=== PATIENT | male | born 1945 | race Caucasian/White ===

== ENCOUNTER 2022-09-16 10:47 | Inpatient (IN) | payer MEDICARE, OTHER ==
[~2022-09-16] VITALS: Ht 175.3 cm; Wt 85.6 kg
[2022-09-16] MEDS ORDERED: ONDANSETRON HCL 4 MG/2 ML VIAL IV ONE (11:30)
[2022-09-16 11:40] LABS: Basophils # (auto) 0.1 10 ^3/uL (0-0.2); Eosinophils # (auto) 0.1 10 ^3/uL (0-0.8); Lymphocytes # (auto) 1.4 10 ^3/uL (0.4-5.4); Monocytes # (auto) 0.5 10 ^3/uL (0-1.3); Red Blood Cells 4.81 10^6/uL (4.5-5.90)
[2022-09-16 11:42] LABS: Basophils % (auto) 1.1 % (0.0-2.0); Eosinophils % (auto) 0.9 % (0.0-7.0); Hematocrit 37.8 % (41.0-53.0); Hemoglobin 12.6 g/dL (13.5-17.5); Lymphocytes % (auto) 18.2 % (10.0-50.0); Mean Corpuscular Hemoglobin 26.2 pg (28.0-32.0); Mean Corpuscular Hgb Conc. 33.4 g/dL (32.0-36.0); Mean Corpuscular Volume 78.6 fL (80.0-100.0); Monocytes % (auto) 6.7 % (0.0-12.0); Neutrophils # (auto) 5.5 10 ^3/uL (1.6-8.6); Neutrophils % (auto) 73.1 % (37.0-80.0); Nucleated Red Blood Cells % 0.1 %; Red Cell Distribution Width 14.5 % (11.8-14.3); White Blood Cell 7.6 10^3/uL (4.4-10.8)
[2022-09-16 12:04] LABS: Albumin 3.7 g/dL (3.4-5.0); Calcium 9.8 mg/dL (8.5-10.1); Potassium 3.6 mmol/L (3.5-5.1)
[2022-09-16 12:08] LABS: BUN/Creatinine Ratio 17.2 (10.0-20.0); Bilirubin, Total 0.4 mg/dL (0.2-1.0)
[2022-09-16 13:50] LABS: Urine Bacteria NONE SEEN /hpf (None Seen); Urine Blood Negative /uL (Negative); Urine Hyaline Cast FEW /lpf (0 - 2); Urine Mucus FEW (None Seen); Urine WBC 2 /hpf (0 - 3)
[2022-09-16] MEDS ORDERED: AMLO-496 PO (14:11)
[2022-09-16] MEDS ORDERED: HYDR1TAB97 PO (14:11)
[2022-09-16] MEDS ORDERED: MET50T PO (14:11)
[2022-09-16] MEDS ORDERED: APIX5TAB PO (14:11)
[2022-09-16] MEDS ORDERED: ROSU1TAB15 PO (14:11)
[2022-09-16] MEDS ORDERED: METF-370 PO (14:11)
[2022-09-16] MEDS ORDERED: GABA800T97 PO (14:11)
[2022-09-16] MEDS ORDERED: MELO1TAB56 PO (14:11)
[2022-09-16] MEDS ORDERED: LISI40TA11 PO (14:11)
[2022-09-16] MEDS ORDERED: ONDANSETRON HCL 4 MG/2 ML VIAL IV PRN (14:15)
[2022-09-16] MEDS ORDERED: DEXTROSE (50%) 50ML SYRG IV PRN ×2 (14:15)
[2022-09-16] MEDS ORDERED: SODIUM CHLORIDE 0.9% 1,500 ML IV ONE (14:15)
[2022-09-16] MEDS ORDERED: KETOROLAC TROMETH 30 MG/ML 1ML VIAL IV ONE (14:15)
[2022-09-16] MEDS ORDERED: ACETAMINOPHEN 325 MG TAB PO PRN (14:15)
[2022-09-16] MEDS ORDERED: MORPHINE SULFATE INJ 2 MG/ml SYRG IV PRN (14:15)
[2022-09-16] MEDS ORDERED: KETOROLAC TROMETH 30 MG/ML 1ML VIAL IV PRN (14:15)
[2022-09-16 14:39] LABS: Cholesterol 110 mg/dL (< 200)
[2022-09-16 14:42] LABS: HDL Cholesterol 46 mg/dL (40-59); LDL Cholesterol 59 mg/dL (< 100); Triglycerides 222 mg/dL (< 150)
[2022-09-16] MEDS ORDERED: InsuLIN REG 1unit/0.01ml Soln (100units/ml) SC SCH (17:00)
[2022-09-16] MEDS ORDERED: ACCU-CHEK COMFORT CURVE STRIP VI SCH (17:00)
[2022-09-16] MEDS: InsuLIN REG 1unit/0.01ml Soln (100units/ml) SC SCH ×2 (17:00→21:41)
[2022-09-16] MEDS: ACCU-CHEK COMFORT CURVE STRIP VI SCH ×2 (17:16→21:41)
[2022-09-16] MEDS: SODIUM CHLORIDE 0.9% 1,000 ML IV SCH (18:18)
[2022-09-16 21:22] VITALS: BP 166/80
[2022-09-16 21:55] VITALS: BP 166/80
[2022-09-16] MEDS: METOPROLOL TARTRATE 50 MG TAB PO SCH (22:41)
[2022-09-16] MEDS: APIXABAN 5 MG TAB PO SCH (22:41)
[2022-09-16] MEDS: GABAPENTIN 400 MG CAP PO SCH (22:41)
[2022-09-16] MEDS: metFORMIN HYDROCHLORIDE 500 MG TAB PO SCH (22:42)
[2022-09-17] VITALS (7 sets, daily range): BP systolic 114–147; BP diastolic 61–74
[2022-09-17] MEDS: SODIUM CHLORIDE 0.9% 1,000 ML IV SCH ×3 (00:15→18:18)
[2022-09-17 06:52] LABS: Basophils # (auto) 0.1 10 ^3/uL (0-0.2); Basophils % (auto) 1.2 % (0.0-2.0); Eosinophils # (auto) 0.1 10 ^3/uL (0-0.8); Eosinophils % (auto) 1.8 % (0.0-7.0); Hematocrit 32.1 % (41.0-53.0); Lymphocytes # (auto) 1.2 10 ^3/uL (0.4-5.4); Lymphocytes % (auto) 22.9 % (10.0-50.0); Mean Corpuscular Hemoglobin 26.8 pg (28.0-32.0); Mean Corpuscular Hgb Conc. 34.4 g/dL (32.0-36.0); Mean Corpuscular Volume 78.1 fL (80.0-100.0); Monocytes # (auto) 0.6 10 ^3/uL (0-1.3); Monocytes % (auto) 10.7 % (0.0-12.0); Neutrophils # (auto) 3.4 10 ^3/uL (1.6-8.6); Neutrophils % (auto) 63.4 % (37.0-80.0); Nucleated Red Blood Cells % 0.1 %; Red Blood Cells 4.11 10^6/uL (4.5-5.90); Red Cell Distribution Width 14.2 % (11.8-14.3); White Blood Cell 5.3 10^3/uL (4.4-10.8)
[2022-09-17] MEDS: InsuLIN REG 1unit/0.01ml Soln (100units/ml) SC SCH ×4 (07:00→21:27)
[2022-09-17] MEDS: ACCU-CHEK COMFORT CURVE STRIP VI SCH ×4 (07:14→21:27)
[2022-09-17] MEDS: GABAPENTIN 400 MG CAP PO SCH ×3 (07:15→21:26)
[2022-09-17 07:43] LABS: Calcium 8.7 mg/dL (8.5-10.1); Potassium 3.2 mmol/L (3.5-5.1)
[2022-09-17 07:46] LABS: BUN/Creatinine Ratio 16.9 (10.0-20.0); Bilirubin, Total 0.5 mg/dL (0.2-1.0); Total Protein 6.1 g/dL (6.4-8.2)
[2022-09-17] MEDS ORDERED: ENOXAPARIN SOD 40 MG/0.4 ML SYRINGE SC SCH (10:00)
[2022-09-17] MEDS: ATORVASTATIN 20 MG TAB PO SCH (10:47)
[2022-09-17] MEDS: APIXABAN 5 MG TAB PO SCH ×2 (10:47→21:26)
[2022-09-17] MEDS: amLODIPine BESYLATE 5 MG TAB PO SCH (10:48)
[2022-09-17] MEDS: LISINOPRIL 20 MG TAB PO SCH (10:48)
[2022-09-17] MEDS: METOPROLOL TARTRATE 50 MG TAB PO SCH ×2 (10:49→21:26)
[2022-09-17] MEDS: metFORMIN HYDROCHLORIDE 500 MG TAB PO SCH (11:05)
[2022-09-17] MEDS ORDERED: POTASSIUM CHL 20 Meq TABLET PO ONE ×2 (12:15→16:00)
[2022-09-17] MEDS ORDERED: PANTOPRAZOLE 40 MG/10 ML VIAL INJ IV ONE (12:15)
[2022-09-17] MEDS: metroNIDAZOLE 500MG/100ML 100 ML IV SCH ×2 (16:03→21:26)
[2022-09-17] MEDS ORDERED: ASPI-543 PO (16:52)
[2022-09-17] MEDS ORDERED: CHOL500033 PO (16:52)
[2022-09-17] MEDS ORDERED: FLUT0.05 NAS (16:52)
[2022-09-17] MEDS ORDERED: POTA10TA51 PO (16:52)
[2022-09-17] MEDS ORDERED: HYDR25TA5 PO (16:52)
[2022-09-18 05:00] VITALS: BP 134/68
[2022-09-18 05:21] LABS: Basophils # (auto) 0.1 10 ^3/uL (0-0.2); Basophils % (auto) 0.9 % (0.0-2.0); Eosinophils # (auto) 0.1 10 ^3/uL (0-0.8); Hemoglobin 10.5 g/dL (13.5-17.5); Lymphocytes # (auto) 1.4 10 ^3/uL (0.4-5.4); Lymphocytes % (auto) 21.9 % (10.0-50.0); Neutrophils # (auto) 4.1 10 ^3/uL (1.6-8.6); Nucleated Red Blood Cells % 0.1 %; White Blood Cell 6.3 10^3/uL (4.4-10.8)
[2022-09-18 05:23] LABS: Eosinophils % (auto) 1.3 % (0.0-7.0); Hematocrit 29.6 % (41.0-53.0); Mean Corpuscular Hgb Conc. 35.5 g/dL (32.0-36.0); Mean Corpuscular Volume 76.2 fL (80.0-100.0); Monocytes # (auto) 0.7 10 ^3/uL (0-1.3); Monocytes % (auto) 11.5 % (0.0-12.0); Neutrophils % (auto) 64.4 % (37.0-80.0); Red Blood Cells 3.89 10^6/uL (4.5-5.90); Red Cell Distribution Width 14.2 % (11.8-14.3)
[2022-09-18 05:37] LABS: BUN/Creatinine Ratio 13.8 (10.0-20.0); Calcium 8.5 mg/dL (8.5-10.1); Potassium 3.1 mmol/L (3.5-5.1)
[2022-09-18] MEDS: GABAPENTIN 400 MG CAP PO SCH (06:05)
[2022-09-18] MEDS: metroNIDAZOLE 500MG/100ML 100 ML IV SCH (06:05)
[2022-09-18] MEDS: ACCU-CHEK COMFORT CURVE STRIP VI SCH ×2 (06:06→12:04)
[2022-09-18] MEDS: InsuLIN REG 1unit/0.01ml Soln (100units/ml) SC SCH ×2 (06:12→12:04)
[2022-09-18] MEDS: SODIUM CHLORIDE 0.9% 1,000 ML IV SCH (06:15)
[2022-09-18 09:30] VITALS: BP 143/69
[2022-09-18] MEDS ORDERED: PANTOPRAZOLE 40 MG/10 ML VIAL INJ IV SCH (10:00)
[2022-09-18] MEDS: amLODIPine BESYLATE 5 MG TAB PO SCH (10:41)
[2022-09-18] MEDS: ATORVASTATIN 20 MG TAB PO SCH (10:42)
[2022-09-18] MEDS: METOPROLOL TARTRATE 50 MG TAB PO SCH (10:42)
[2022-09-18] MEDS: APIXABAN 5 MG TAB PO SCH (10:43)
[2022-09-18] MEDS: LISINOPRIL 20 MG TAB PO SCH (10:43)
[2022-09-18 11:30] VITALS: BP 149/69
[2022-09-18] MEDS ORDERED: POTASSIUM CHL 20 Meq TABLET PO ONE (11:30)
[2022-09-18] MEDS ORDERED: MAGNESIUM OXIDE 400 MG TAB PO ONE (11:30)
[2022-09-18] MEDS ORDERED: METR500T PO (11:51)
[2022-09-18 13:58] VITALS: BP 149/69
== END 2022-09-18 16:16 | disposition home or self-care (01) | DRG 439 ==
LOC: ER 10:47 → OVERFLOW 14:06 → EAST 21:00
PROVIDERS: ADMIT Nurse Practitioner Family; ATTEND Internal Medicine
DX: K85.90 Acute pancreatitis without necrosis or infection, unspecified (principal); D68.69 Other thrombophilia; K86.2 Cyst of pancreas; E11.9 Type 2 diabetes mellitus without complications; N28.1 Cyst of kidney, acquired; R19.7 Diarrhea, unspecified; I48.91 Unspecified atrial fibrillation; I10 Essential (primary) hypertension; Z79.01 Long term (current) use of anticoagulants; Z85.46 Personal history of malignant neoplasm of prostate
CPT/HCPCS: 36415; 74176; 76705; 80048; 80053; 80061; 81001; 82962; 83036; 83605; 83690; 84484; 85025; 86301; 87040; 87045; 87177; 87426; 87427; 87493; 93005; 96360; 96361; C9113; G0378; J1815; J3490

== ENCOUNTER → 2023-06-16 | Outpatient (CLI) | payer MEDICARE, BC ==
[~2023-06-16] MED LIST: AMLO1TAB23 PO; APIX5TAB PO; ASPI-543 PO; CHOL500033 PO; FLUT0.05 NAS; GABA800T97 PO; HYDR1TAB97 PO; HYDR25TA5 PO; LISI40TA16 PO; MELO-335 PO; MET50T PO; METF-370 PO; METR500T PO; POTA10TA51 PO; ROSU1TAB15 PO
[2023-06-16 09:16] LABS: Basophils # (auto) 0.1 10 ^3/uL (0-0.2); Basophils % (auto) 1.1 % (0.0-2.0); Eosinophils # (auto) 0.1 10 ^3/uL (0-0.8); Eosinophils % (auto) 1.5 % (0.0-7.0); Hematocrit 37.5 % (41.0-53.0); Hemoglobin 12.3 g/dL (13.5-17.5); Lymphocytes # (auto) 1.5 10 ^3/uL (0.4-5.4); Lymphocytes % (auto) 25.2 % (10.0-50.0); Mean Corpuscular Hgb Conc. 32.7 g/dL (32.0-36.0); Mean Corpuscular Volume 76.3 fL (80.0-100.0); Monocytes # (auto) 0.6 10 ^3/uL (0-1.3); Monocytes % (auto) 10.1 % (0.0-12.0); Neutrophils # (auto) 3.6 10 ^3/uL (1.6-8.6); Neutrophils % (auto) 62.1 % (37.0-80.0); Nucleated Red Blood Cells % 0.2 %; Red Blood Cells 4.92 10^6/uL (4.5-5.90); Red Cell Distribution Width 15.9 % (11.8-14.3); White Blood Cell 5.8 10^3/uL (4.4-10.8)
[2023-06-16 09:23] LABS: Urine Bacteria NONE SEEN /hpf (None Seen); Urine Blood Negative /uL (Negative); Urine Clarity Clear (Clear); Urine Color Yellow (Yellow); Urine Hyaline Cast FEW /lpf (0 - 2); Urine Mucus FEW (None Seen); Urine Protein, UAD 1+ (Negative); Urine Specific Gravity 1.027 (1.001-1.035); Urine WBC 3 /hpf (0 - 3); Urine pH 5.5 (5.0-8.0)
[2023-06-16 09:33] LABS: INR 0.98 (0.9-1.15); Partial Thromboplastin Time 25.6 SEC (24.5-34.5); Prothrombin Time 10.3 sec (9.3-11.8)
[2023-06-16 10:33] LABS: Alkaline Phosphatase 65 U/L (46-116); Anion Gap 7 (5-15); BUN/Creatinine Ratio 16.9 (10.0-20.0); Blood Urea Nitrogen 21 mg/dL (9-23); Calcium 10.3 mg/dL (8.5-10.1); Carbon Dioxide 31 mmol/L (20-30); Chloride 102 mmol/L (98-107); Glucose 182 mg/dL (74-106); Potassium 3.8 mmol/L (3.5-5.1); Sodium 140 mmol/L (136-145)
[2023-06-16 10:35] LABS: Albumin 4.4 g/dL (3.2-4.8); Aspartate Aminotransferase 11 U/L (13-40); Bilirubin, Total 0.5 mg/dL (0.2-1.0); Total Protein 6.8 g/dL (5.7-8.2)
[2023-06-16 11:32] LABS: Alanine Aminotransferase < 9 U/L (7-40)
== END | disposition home or self-care (01) ==
LOC: LAB 09:01
PROVIDERS: ATTEND Internal Medicine
DX: Z01.812 Encounter for preprocedural laboratory examination (principal); I12.9 Hypertensive chronic kidney disease with stage 1 through stage 4 chronic kidney disease, or unspecified chronic kidney disease; E11.22 Type 2 diabetes mellitus with diabetic chronic kidney disease; N18.2 Chronic kidney disease, stage 2 (mild); E11.69 Type 2 diabetes mellitus with other specified complication; D50.9 Iron deficiency anemia, unspecified
CPT/HCPCS: 36415; 80053; 81001; 85025; 85610; 85730; 86431

== ENCOUNTER → 2023-10-13 | Outpatient (CLI) | payer MEDICARE, BC ==
[~2023-10-13] MED LIST changes: +HYDR-4072 PO; +MEGE20TA3 PO; -MELO-335 PO; +MELO15TA29 PO; +PANT40T PO; +POTA-36 PO; -POTA10TA51 PO; -ROSU1TAB15 PO; +ROSU40TA47 PO
[2023-10-13 08:44] LABS: Urine Bacteria None Seen /hpf (None Seen)
[2023-10-13 09:32] LABS: Basophils # (auto) 0.1 10 ^3/uL (0-0.2); Basophils % (auto) 0.8 % (0.0-2.0); Eosinophils # (auto) 0.1 10 ^3/uL (0-0.8); Eosinophils % (auto) 1.2 % (0.0-7.0); Hematocrit 34.9 % (41.0-53.0); Hemoglobin 11.4 g/dL (13.5-17.5); Lymphocytes # (auto) 2.2 10 ^3/uL (0.4-5.4); Lymphocytes % (auto) 27.1 % (10.0-50.0); Mean Corpuscular Hemoglobin 23.6 pg (28.0-32.0); Mean Corpuscular Hgb Conc. 32.6 g/dL (32.0-36.0); Mean Corpuscular Volume 72.4 fL (80.0-100.0); Monocytes # (auto) 0.7 10 ^3/uL (0-1.3); Monocytes % (auto) 8.4 % (0.0-12.0); Neutrophils % (auto) 62.5 % (37.0-80.0); Nucleated Red Blood Cells % 0.1 %; Red Blood Cells 4.83 10^6/uL (4.5-5.90); Red Cell Distribution Width 16.3 % (11.8-14.3)
[2023-10-13 09:41] LABS: Creatinine, Urine 83.46 mg/dL (30.0-125.0)
[2023-10-13 09:44] LABS: Urine Blood Negative /uL (Negative); Urine Clarity Clear (Clear); Urine Color Light-Yellow (Yellow); Urine Mucus FEW (None Seen); Urine Protein, UAD TRACE (Negative); Urine Specific Gravity 1.018 (1.001-1.035); Urine Urobilinogen Normal (Negative); Urine WBC 1 /hpf (0 - 3); Urine pH 6.5 (5.0-9.0)
[2023-10-13 09:49] LABS: Alkaline Phosphatase 68 U/L (46-116); Anion Gap 9 (5-15); Aspartate Aminotransferase 14 U/L (13-40); BUN/Creatinine Ratio 13.8 (10.0-20.0); Blood Urea Nitrogen 15 mg/dL (9-23); Calcium 10.3 mg/dL (8.5-10.1); Carbon Dioxide 29 mmol/L (20-30); Chloride 102 mmol/L (98-107); Glucose 199 mg/dL (74-106); LDL Cholesterol 58 mg/dL (< 100); Potassium 3.3 mmol/L (3.5-5.1); Sodium 140 mmol/L (136-145); Triglycerides 237 mg/dL (< 150)
[2023-10-13 09:50] LABS: Albumin 4.5 g/dL (3.2-4.8); Bilirubin, Total 0.4 mg/dL (0.2-1.0); Cholesterol 122 mg/dL (< 200); HDL Cholesterol 35 mg/dL (40-59); Total Protein 6.8 g/dL (5.7-8.2)
[2023-10-13 10:27] LABS: Alanine Aminotransferase < 9 U/L (7-40)
== END | disposition home or self-care (01) ==
LOC: LAB 08:30
PROVIDERS: ATTEND Internal Medicine
DX: I12.9 Hypertensive chronic kidney disease with stage 1 through stage 4 chronic kidney disease, or unspecified chronic kidney disease (principal); E11.22 Type 2 diabetes mellitus with diabetic chronic kidney disease; N18.2 Chronic kidney disease, stage 2 (mild); D63.1 Anemia in chronic kidney disease; E11.69 Type 2 diabetes mellitus with other specified complication
CPT/HCPCS: 36415; 80053; 80061; 81001; 82043; 82570; 83036; 84439; 84443; 85025

== ENCOUNTER 2023-10-17 11:51 | Inpatient (IN) | payer MEDICARE, OTHER ==
[~2023-10-17] VITALS: Ht 174 cm; Wt 93.7 kg
[~2023-10-17 11:51] MED LIST changes: -HYDR-4072 PO; -MEGE20TA3 PO; -PANT40T PO
[2023-10-17 12:42] LABS: Basophils # (auto) 0.1 10 ^3/uL (0-0.2); Basophils % (auto) 1.1 % (0.0-2.0); Eosinophils # (auto) 0.1 10 ^3/uL (0-0.8); Hematocrit 33.1 % (41.0-53.0); Hemoglobin 10.8 g/dL (13.5-17.5); Lymphocytes # (auto) 1.8 10 ^3/uL (0.4-5.4); Monocytes # (auto) 0.6 10 ^3/uL (0-1.3); Neutrophils # (auto) 4.8 10 ^3/uL (1.6-8.6)
[2023-10-17 12:44] LABS: Eosinophils % (auto) 1.2 % (0.0-7.0); Lymphocytes % (auto) 24.4 % (10.0-50.0); Mean Corpuscular Hemoglobin 23.7 pg (28.0-32.0); Mean Corpuscular Hgb Conc. 32.6 g/dL (32.0-36.0); Mean Corpuscular Volume 72.7 fL (80.0-100.0); Monocytes % (auto) 8.5 % (0.0-12.0); Neutrophils % (auto) 64.8 % (37.0-80.0); Red Blood Cells 4.55 10^6/uL (4.5-5.90); Red Cell Distribution Width 16.3 % (11.8-14.3); White Blood Cell 7.4 10^3/uL (4.4-10.8)
[2023-10-17 13:25] LABS: INR 1.01 (0.9-1.15); Partial Thromboplastin Time 23.8 SEC (24.5-34.5); Prothrombin Time 10.7 sec (9.3-11.8)
[2023-10-17 13:36] LABS: Albumin 4.4 g/dL (3.2-4.8); Alkaline Phosphatase 72 U/L (46-116); Anion Gap 8 (5-15); Aspartate Aminotransferase 14 U/L (13-40); BUN/Creatinine Ratio 15.9 (10.0-20.0); Bilirubin, Total 0.3 mg/dL (0.2-1.0); Blood Urea Nitrogen 22 mg/dL (9-23); Calcium 10.6 mg/dL (8.5-10.1); Carbon Dioxide 28 mmol/L (20-30); Chloride 104 mmol/L (98-107); Glucose 210 mg/dL (74-106); Potassium 3.6 mmol/L (3.5-5.1); Sodium 140 mmol/L (136-145); Total Protein 6.8 g/dL (5.7-8.2)
[2023-10-17 13:37] LABS: Alanine Aminotransferase < 9 U/L (7-40)
[2023-10-17 13:53] LABS: Lactic Acid w/Reflex 2.4 mmol/L (0.4-2.0)
[2023-10-17 14:58] LABS: Magnesium 1.7 mg/dL (1.6-2.6)
[2023-10-17] MEDS ORDERED: MEGE20TA3 PO (16:06)
[2023-10-17] MEDS ORDERED: HYDR-4072 PO (16:06)
[2023-10-17] MEDS ORDERED: PANT40T PO (16:06)
[2023-10-17] MEDS ORDERED: DEXTROSE (50%) 50ML SYRG IV PRN (16:15)
[2023-10-17] MEDS: SODIUM CHLORIDE 0.9% 1,000 ML IV ONE ×2 (16:15→16:35)
[2023-10-17] MEDS ORDERED: DOCUSATE SOD 100 MG CAP PO PRN (16:15)
[2023-10-17] MEDS ORDERED: NITROGLYCERIN 0.4 MG SL TAB SL PRN (16:15)
[2023-10-17] MEDS ORDERED: ONDANSETRON HCL 4 MG/2 ML VIAL IV PRN (16:15)
[2023-10-17] MEDS ORDERED: MORPHINE SULFATE INJ 2 MG/ml SYRG IV PRN ×2 (16:15)
[2023-10-17] MEDS ORDERED: ACETAMINOPHEN 325 MG TAB PO PRN (16:15)
[2023-10-17] MEDS ORDERED: hydrALAZINE HCL 20 MG/ML VL IV PRN (16:15)
[2023-10-17] MEDS: POTASSIUM EFFERVESENT TAB 25 MEQ PO ONE (18:41)
[2023-10-17] MEDS: FUROSEMIDE 40 MG/4 ML VIAL IV ONE (18:41)
[2023-10-17] MEDS: InsuLIN REG 1unit/0.01ml Soln (100units/ml) SC SCH (18:43)
[2023-10-17] MEDS: ACCU-CHEK COMFORT CURVE STRIP VI SCH (18:52)
[2023-10-17 19:45] VITALS: PULSE 94; RESP 16; O2SAT 97
[2023-10-17] MEDS ORDERED: PATIENTS OWN MEDICATION (Gabapentin 1 TAB) PO SCH (22:00)
[2023-10-17] MEDS ORDERED: PATIENTS OWN MEDICATION (Potassium Chloride (Potassium Chloride Cr) 10 MEQ) PO SCH (22:00)
[2023-10-17] MEDS: POTASSIUM CHL 10 Meq TABLET PO SCH (22:35)
[2023-10-17] MEDS: METOPROLOL TARTRATE 50 MG TAB PO SCH (22:35)
[2023-10-17] MEDS: ATORVASTATIN 20 MG TAB PO SCH (22:35)
[2023-10-17] MEDS: GABAPENTIN 400 MG CAP PO SCH (22:36)
[2023-10-17] MEDS: PANTOPRAZOLE 40 MG TAB PO SCH (22:36)
[2023-10-17] MEDS: MEGESTROL ACETATE 20 MG TAB PO SCH (22:36)
[2023-10-17 23:01] VITALS: PULSE 96; RESP 16; O2SAT 99
[2023-10-17 23:04] LABS: Urine Bacteria None Seen /hpf (None Seen); Urine WBC None Seen /hpf (0 - 3)
[2023-10-17 23:09] LABS: Urine Blood Negative /uL (Negative); Urine Clarity Clear (Clear); Urine Protein, UAD Negative (Negative); Urine Specific Gravity 1.007 (1.001-1.035); Urine Urobilinogen Normal (Negative)
[2023-10-17 23:16] LABS: Urine Color Straw (Yellow)
[2023-10-17] MEDS: dilTIAZem 25 MG/5 ML VIAL IV ONE (23:29)
[2023-10-18] VITALS (7 sets, daily range): BP systolic 112–150; BP diastolic 56–72; PULSE 72–94; RESP 16–18; TEMP 97.6–98.3; O2SAT 97–98
[2023-10-18] MEDS: HYDROcodone-ACET 10/325MG TAB PO PRN (06:31)
[2023-10-18 07:58] LABS: Albumin 4.1 g/dL (3.2-4.8); Alkaline Phosphatase 62 U/L (46-116); Anion Gap 8 (5-15); Aspartate Aminotransferase 14 U/L (13-40); Bilirubin, Total 0.4 mg/dL (0.2-1.0); Blood Urea Nitrogen 19 mg/dL (9-23); Calcium 9.9 mg/dL (8.5-10.1); Carbon Dioxide 28 mmol/L (20-30); Chloride 105 mmol/L (98-107); Glucose 191 mg/dL (74-106); Potassium 2.9 mmol/L (3.5-5.1); Sodium 141 mmol/L (136-145); Total Protein 6.1 g/dL (5.7-8.2)
[2023-10-18 07:59] LABS: Alanine Aminotransferase < 9 U/L (7-40); Basophils # (auto) 0.1 10 ^3/uL (0-0.2); Basophils % (auto) 0.9 % (0.0-2.0); Eosinophils # (auto) 0.1 10 ^3/uL (0-0.8); Hemoglobin 9.9 g/dL (13.5-17.5); Lymphocytes # (auto) 1.2 10 ^3/uL (0.4-5.4); Mean Corpuscular Volume 72.7 fL (80.0-100.0); Neutrophils # (auto) 4.3 10 ^3/uL (1.6-8.6); White Blood Cell 6.2 10^3/uL (4.4-10.8)
[2023-10-18 08:02] LABS: Eosinophils % (auto) 1.4 % (0.0-7.0); Hematocrit 30.9 % (41.0-53.0); Lymphocytes % (auto) 19.8 % (10.0-50.0); Mean Corpuscular Hemoglobin 23.4 pg (28.0-32.0); Mean Corpuscular Hgb Conc. 32.1 g/dL (32.0-36.0); Monocytes # (auto) 0.5 10 ^3/uL (0-1.3); Monocytes % (auto) 8.9 % (0.0-12.0); Red Blood Cells 4.25 10^6/uL (4.5-5.90); Red Cell Distribution Width 16.5 % (11.8-14.3)
[2023-10-18 09:11] LABS: Amphetamine Screen, Urine Neg (NEGATIVE); Barbiturate Scree,Urine Neg (NEGATIVE); Benzodiazephine Screen, Urine Neg (NEGATIVE); Cannabinoid Screen, Urine Neg (NEGATIVE); Cocaine Screen, Urine Neg (NEGATIVE); Opiate Scree,Urine Neg (NEGATIVE); Phencyclidine Screen, Urine Neg (NEGATIVE)
[2023-10-18] MEDS: POTASSIUM EFFERVESENT TAB 25 MEQ PO ONE (09:19)
[2023-10-18] MEDS: ASPirin-EC 81 mg tab PO SCH (09:20)
[2023-10-18] MEDS: MAGNESIUM OXIDE 400 MG TAB PO ONE (09:20)
[2023-10-18] MEDS: FUROSEMIDE 20 MG/2 ML VIAL IV SCH (09:22)
[2023-10-18] MEDS: amLODIPine BESYLATE 5 MG TAB PO SCH (09:22)
[2023-10-18] MEDS: ENOXAPARIN SOD 40 MG/0.4 ML SYRINGE SC SCH (09:23)
[2023-10-18] MEDS ORDERED: PATIENTS OWN MEDICATION (Amlodipine Besylate 1 TAB) PO SCH (10:00)
[2023-10-18] MEDS ORDERED: PATIENTS OWN MEDICATION (Rosuvastatin Calcium 1 TAB) PO SCH (10:00)
[2023-10-18] MEDS: DIGOXIN (250MCG/ML) 2 ML AMPULE IV ONE (16:58)
[2023-10-18] MEDS: APIXABAN 5 MG TAB PO SCH (21:49)
[2023-10-19] VITALS (7 sets, daily range): BP systolic 124–145; BP diastolic 65–80; PULSE 71–106; RESP 14–18; TEMP 97.5–98.4; O2SAT 97–99
[2023-10-19 06:52] LABS: Basophils # (auto) 0.1 10 ^3/uL (0-0.2); Eosinophils # (auto) 0.1 10 ^3/uL (0-0.8); Eosinophils % (auto) 1.6 % (0.0-7.0); Hematocrit 31.3 % (41.0-53.0); Hemoglobin 10.1 g/dL (13.5-17.5); Lymphocytes # (auto) 1.4 10 ^3/uL (0.4-5.4); Lymphocytes % (auto) 25.1 % (10.0-50.0); Mean Corpuscular Hemoglobin 23.4 pg (28.0-32.0); Mean Corpuscular Hgb Conc. 32.3 g/dL (32.0-36.0); Mean Corpuscular Volume 72.6 fL (80.0-100.0); Monocytes # (auto) 0.6 10 ^3/uL (0-1.3); Monocytes % (auto) 9.6 % (0.0-12.0); Neutrophils # (auto) 3.6 10 ^3/uL (1.6-8.6); Neutrophils % (auto) 62.7 % (37.0-80.0); Red Blood Cells 4.31 10^6/uL (4.5-5.90); Red Cell Distribution Width 16.2 % (11.8-14.3); White Blood Cell 5.8 10^3/uL (4.4-10.8)
[2023-10-19 07:15] LABS: Anion Gap 7 (5-15); Carbon Dioxide 30 mmol/L (20-30); Chloride 105 mmol/L (98-107); Potassium 2.9 mmol/L (3.5-5.1); Sodium 142 mmol/L (136-145)
[2023-10-19 07:16] LABS: Calcium 9.8 mg/dL (8.5-10.1)
[2023-10-19 07:21] LABS: BUN/Creatinine Ratio 15.8 (10.0-20.0); Blood Urea Nitrogen 15 mg/dL (9-23); Glucose 162 mg/dL (74-106); Magnesium 1.7 mg/dL (1.6-2.6)
[2023-10-19] MEDS: FUROSEMIDE 20 MG/2 ML VIAL IV SCH (09:18)
[2023-10-19] MEDS ORDERED: FUROSEMIDE 20 MG/2 ML VIAL IV SCH (10:00)
[2023-10-19] MEDS: SPIRONOLACTONE 25 MG TAB PO SCH (11:11)
[2023-10-19] MEDS: POTASSIUM CHL 20 Meq TABLET PO SCH (11:11)
[2023-10-19] MEDS: FUROSEMIDE 20 MG TAB PO ONE (11:12)
[2023-10-19] MEDS: MAGNESIUM SULFATE 1GM/100ML 100 ML IV ONE (12:42)
[2023-10-19 19:48] LABS: Anion Gap 9 (5-15); Carbon Dioxide 27 mmol/L (20-30); Chloride 107 mmol/L (98-107); Potassium 3.6 mmol/L (3.5-5.1); Sodium 143 mmol/L (136-145)
[2023-10-19 19:49] LABS: Calcium 10.1 mg/dL (8.5-10.1)
[2023-10-19 19:53] LABS: Glucose 175 mg/dL (74-106)
[2023-10-19 19:54] LABS: BUN/Creatinine Ratio 17.8 (10.0-20.0); Blood Urea Nitrogen 18 mg/dL (9-23)
[2023-10-20 05:00] VITALS: BP 142/74; PULSE 84; RESP 18; TEMP 98.4; O2SAT 99
[2023-10-20] MEDS ORDERED: EMPA1TAB PO (07:42)
[2023-10-20] MEDS ORDERED: SPIR25TA PO (07:42)
[2023-10-20] MEDS ORDERED: APIX5TAB PO (07:42)
[2023-10-20 07:45] LABS: Basophils # (auto) 0.1 10 ^3/uL (0-0.2); Eosinophils # (auto) 0.1 10 ^3/uL (0-0.8); Eosinophils % (auto) 1.9 % (0.0-7.0); Hematocrit 33.8 % (41.0-53.0); Hemoglobin 10.8 g/dL (13.5-17.5); Lymphocytes # (auto) 1.3 10 ^3/uL (0.4-5.4); Mean Corpuscular Hemoglobin 23.1 pg (28.0-32.0); Mean Corpuscular Volume 72.2 fL (80.0-100.0); Monocytes # (auto) 0.6 10 ^3/uL (0-1.3); Monocytes % (auto) 10.3 % (0.0-12.0); Neutrophils # (auto) 3.9 10 ^3/uL (1.6-8.6); Neutrophils % (auto) 64.8 % (37.0-80.0); Red Blood Cells 4.69 10^6/uL (4.5-5.90); Red Cell Distribution Width 16.3 % (11.8-14.3)
[2023-10-20 08:00] VITALS: PULSE 84; RESP 18; O2SAT 98
[2023-10-20 08:02] LABS: Chloride 108 mmol/L (98-107); Potassium 3.3 mmol/L (3.5-5.1); Sodium 141 mmol/L (136-145)
[2023-10-20 08:03] LABS: Anion Gap 7 (5-15); Calcium 9.9 mg/dL (8.5-10.1); Carbon Dioxide 26 mmol/L (20-30)
[2023-10-20 08:08] LABS: BUN/Creatinine Ratio 12.5 (10.0-20.0); Blood Urea Nitrogen 12 mg/dL (9-23); Glucose 179 mg/dL (74-106)
[2023-10-20 08:42] VITALS: BP 133/91; PULSE 97; RESP 20; TEMP 98.4; O2SAT 98
[2023-10-20] MEDS ORDERED: LISINOPRIL 5 MG TAB PO SCH (10:00)
[2023-10-20] MEDS: POTASSIUM CHL 20 Meq TABLET PO ONE (10:30)
[2023-10-20] MEDS: EMPAGLIFLOZIN 10 MG TAB PO SCH (10:31)
[2023-10-20 12:28] VITALS: BP 137/81; PULSE 93; RESP 20; TEMP 98.3; O2SAT 98
[2023-10-20 13:51] VITALS: BP 133/91; PULSE 97; TEMP 36.8
== END 2023-10-20 14:30 | disposition home or self-care (01) | DRG 682 ==
LOC: ER 11:51 → TELE 16:10 → TELE-WESTW 10-18 04:30
PROVIDERS: ADMIT Internal Medicine; ATTEND Emergency Medicine
DX: N17.0 Acute kidney failure with tubular necrosis (principal); I50.31 Acute diastolic (congestive) heart failure; E87.20 Acidosis, unspecified; K86.2 Cyst of pancreas; I11.0 Hypertensive heart disease with heart failure; E87.6 Hypokalemia; I48.91 Unspecified atrial fibrillation; E11.9 Type 2 diabetes mellitus without complications; E83.42 Hypomagnesemia; D17.71 Benign lipomatous neoplasm of kidney; M54.50 Low back pain, unspecified; R16.0 Hepatomegaly, not elsewhere classified; E78.5 Hyperlipidemia, unspecified; Z85.46 Personal history of malignant neoplasm of prostate; Z79.82 Long term (current) use of aspirin; Z79.899 Other long term (current) drug therapy; Z79.891 Long term (current) use of opiate analgesic
CPT/HCPCS: 36415; 70450; 71045; 80048; 80053; 80307; 81001; 82962; 83605; 83735; 83880; 84484; 85025; 85379; 85610; 85730; 93005; 93306; 93886; 99291; G0378; J1815; J7042

== ENCOUNTER → 2023-11-11 | Outpatient (CLI) | payer MEDICARE, BC ==
[~2023-11-11] MED LIST changes: +EMPA1TAB PO; +HYDR-4072 PO; -HYDR1TAB97 PO; -HYDR25TA5 PO; +MEGE20TA3 PO; -METR500T PO; +PANT40T PO; +SPIR25TA PO
[2023-11-11 11:09] LABS: Urine Bacteria None Seen /hpf (None Seen)
[2023-11-11 11:18] LABS: Basophils # (auto) 0.1 10 ^3/uL (0-0.2); Hemoglobin 10.2 g/dL (13.5-17.5); White Blood Cell 6.6 10^3/uL (4.4-10.8)
[2023-11-11 11:20] LABS: Basophils % (auto) 0.9 % (0.0-2.0); Eosinophils # (auto) 0.2 10 ^3/uL (0-0.8); Eosinophils % (auto) 2.4 % (0.0-7.0); Hematocrit 32.4 % (41.0-53.0); Lymphocytes # (auto) 1.7 10 ^3/uL (0.4-5.4); Lymphocytes % (auto) 26.1 % (10.0-50.0); Mean Corpuscular Hemoglobin 22.7 pg (28.0-32.0); Mean Corpuscular Hgb Conc. 31.5 g/dL (32.0-36.0); Mean Corpuscular Volume 71.9 fL (80.0-100.0); Monocytes # (auto) 0.6 10 ^3/uL (0-1.3); Monocytes % (auto) 9.7 % (0.0-12.0); Neutrophils % (auto) 60.9 % (37.0-80.0); Nucleated Red Blood Cells % 0.1 %; Red Cell Distribution Width 16.3 % (11.8-14.3)
[2023-11-11 11:27] LABS: Urine Blood TRACE /uL (Negative); Urine Clarity Clear (Clear); Urine Color Yellow (Yellow); Urine Hyaline Cast FEW /lpf (0 - 2); Urine Mucus FEW (None Seen); Urine Protein, UAD TRACE (Negative); Urine Specific Gravity 1.022 (1.001-1.035); Urine Urobilinogen Normal (Negative); Urine WBC 3 /hpf (0 - 3); Urine pH 5.5 (5.0-9.0)
[2023-11-11 11:34] LABS: INR 1.04 (0.9-1.15); Partial Thromboplastin Time 25.7 SEC (24.5-34.5)
== END | disposition home or self-care (01) ==
LOC: LAB 10:58
PROVIDERS: ATTEND Internal Medicine
DX: Z01.812 Encounter for preprocedural laboratory examination (principal); Z79.899 Other long term (current) drug therapy; Z79.01 Long term (current) use of anticoagulants
CPT/HCPCS: 36415; 81001; 85025; 85610; 85730

== ENCOUNTER 2024-01-03 16:21 | Inpatient (IN) | payer MEDICARE, BC ==
[~2024-01-03] VITALS: Ht 172.7 cm; Wt 95.2 kg
[~2024-01-03 16:21] MED LIST changes: -AMIO200T33 PO; -HYDR25TA4 PO; -RIVA20TA PO
[2024-01-03 17:51] LABS: Basophils # (auto) 0.1 10 ^3/uL (0-0.2); Basophils % (auto) 0.9 % (0.0-2.0); Eosinophils # (auto) 0 10 ^3/uL (0-0.8); Eosinophils % (auto) 0.6 % (0.0-7.0); Hematocrit 35.2 % (41.0-53.0); Hemoglobin 11.3 g/dL (13.5-17.5); Lymphocytes # (auto) 1.5 10 ^3/uL (0.4-5.4); Lymphocytes % (auto) 17.7 % (10.0-50.0); Mean Corpuscular Hemoglobin 22.8 pg (28.0-32.0); Mean Corpuscular Volume 71.1 fL (80.0-100.0); Monocytes # (auto) 0.8 10 ^3/uL (0-1.3); Monocytes % (auto) 9.6 % (0.0-12.0); Neutrophils # (auto) 6.1 10 ^3/uL (1.6-8.6); Neutrophils % (auto) 71.2 % (37.0-80.0); Nucleated Red Blood Cells % 0.1 %; Red Blood Cells 4.95 10^6/uL (4.5-5.90); Red Cell Distribution Width 17.6 % (11.8-14.3); White Blood Cell 8.5 10^3/uL (4.4-10.8)
[2024-01-03 18:09] LABS: Alanine Aminotransferase 10 U/L (7-40); Albumin 4.5 g/dL (3.2-4.8); Alkaline Phosphatase 60 U/L (46-116); Anion Gap 6 (5-15); Aspartate Aminotransferase 9 U/L (13-40); BUN/Creatinine Ratio 15.7 (10.0-20.0); Bilirubin, Total 0.5 mg/dL (0.2-1.0); Blood Urea Nitrogen 39 mg/dL (9-23); Calcium 9.9 mg/dL (8.7-10.4); Carbon Dioxide 22 mmol/L (20-30); Chloride 106 mmol/L (98-107); Glucose 136 mg/dL (74-106); Lipase 84 U/L (12-53); Potassium 5.5 mmol/L (3.5-5.1); Sodium 134 mmol/L (136-145); Total Protein 6.4 g/dL (5.7-8.2)
[2024-01-03 18:34] LABS: Urine Bacteria None Seen /hpf (None Seen)
[2024-01-03 18:58] LABS: Urine Blood 2+ /uL (Negative); Urine Budding Yeast OCCASIONAL /hpf (None Seen); Urine Clarity Turbid (Clear); Urine Color Yellow (Yellow); Urine Hyaline Cast MOD /lpf (0 - 2); Urine Mucus FEW (None Seen); Urine Protein, UAD 1+ (Negative); Urine Urobilinogen 2 mg/dL (Negative); Urine WBC 39 /hpf (0 - 3)
[2024-01-03] MEDS: SODIUM CHLORIDE 0.9% 1,000 ML IV ONE (19:46)
[2024-01-03] MEDS: SODIUM ZIRCONIUM CYCL 10 GM PAK PO ONE (20:38)
[2024-01-03] MEDS: cefTRIAXone 1GM/50ML D5W 50 ML IV ONE (20:38)
[2024-01-03] MEDS: SODIUM CHLORIDE 0.9% 1,000 ML IV SCH (21:00)
[2024-01-03] MEDS ORDERED: ACETAMINOPHEN 325 MG TAB PO PRN (21:00)
[2024-01-03] MEDS ORDERED: DOCUSATE SOD 100 MG CAP PO PRN (21:00)
[2024-01-03] MEDS ORDERED: DEXTROSE (50%) 50ML SYRG IV PRN (21:00)
[2024-01-03] MEDS ORDERED: MORPHINE SULFATE INJ 2 MG/ml SYRG IV PRN (21:15)
[2024-01-03] MEDS ORDERED: NITROGLYCERIN 0.4 MG SL TAB SL PRN (21:15)
[2024-01-03 21:49] VITALS: PULSE 90; RESP 15; O2SAT 97
[2024-01-03] MEDS: ACCU-CHEK COMFORT CURVE STRIP VI SCH (22:00)
[2024-01-03] MEDS: InsuLIN REG 1unit/0.01ml Soln (100units/ml) SC SCH (22:00)
[2024-01-04] VITALS (10 sets, daily range): BP systolic 138–171; BP diastolic 69–96; PULSE 68–98; RESP 16–20; TEMP 97.7–98.6; O2SAT 98–100
[2024-01-04] MEDS: ATORVASTATIN 20 MG TAB PO SCH (00:17)
[2024-01-04] MEDS: HYDROcodone-ACET 5/325MG TAB PO PRN (03:13)
[2024-01-04] MEDS: hydrALAZINE HCL 20 MG/ML VL IV PRN (03:14)
[2024-01-04 06:06] LABS: Basophils # (auto) 0.1 10 ^3/uL (0-0.2); Basophils % (auto) 0.8 % (0.0-2.0); Eosinophils # (auto) 0.1 10 ^3/uL (0-0.8); Eosinophils % (auto) 1.2 % (0.0-7.0); Hematocrit 34.4 % (41.0-53.0); Hemoglobin 11.3 g/dL (13.5-17.5); Lymphocytes # (auto) 1.3 10 ^3/uL (0.4-5.4)
[2024-01-04 06:10] LABS: Lymphocytes % (auto) 17.9 % (10.0-50.0); Mean Corpuscular Hemoglobin 23.1 pg (28.0-32.0); Mean Corpuscular Hgb Conc. 32.7 g/dL (32.0-36.0); Mean Corpuscular Volume 70.5 fL (80.0-100.0); Monocytes # (auto) 0.6 10 ^3/uL (0-1.3); Monocytes % (auto) 8.1 % (0.0-12.0); Neutrophils # (auto) 5.1 10 ^3/uL (1.6-8.6); Red Blood Cells 4.88 10^6/uL (4.5-5.90); Red Cell Distribution Width 17.7 % (11.8-14.3); White Blood Cell 7.1 10^3/uL (4.4-10.8)
[2024-01-04 06:44] LABS: Albumin 4.6 g/dL (3.2-4.8); Alkaline Phosphatase 63 U/L (46-116); Anion Gap 10 (5-15); BUN/Creatinine Ratio 16.8 (10.0-20.0); Bilirubin, Total 0.3 mg/dL (0.2-1.0); Blood Urea Nitrogen 32 mg/dL (9-23); Calcium 10.1 mg/dL (8.7-10.4); Carbon Dioxide 21 mmol/L (20-30); Chloride 104 mmol/L (98-107); Glucose 130 mg/dL (74-106); Potassium 3.6 mmol/L (3.5-5.1); Sodium 135 mmol/L (136-145); Total Protein 6.8 g/dL (5.7-8.2)
[2024-01-04 07:03] LABS: Alanine Aminotransferase < 9 U/L (7-40); Aspartate Aminotransferase < 8 U/L (13-40)
[2024-01-04] MEDS ORDERED: RIVA20TA PO (07:25)
[2024-01-04] MEDS: cefTRIAXone 1GM/50ML D5W 50 ML IV SCH (09:56)
[2024-01-04] MEDS: ENOXAPARIN SOD 40 MG/0.4 ML SYRINGE SC SCH (10:00)
[2024-01-04] MEDS: ENOXAPARIN SOD 40 MG/0.4 ML SYRINGE SC ONE (10:17)
[2024-01-04] MEDS: ASPirin 81 mg TAB PO SCH (10:59)
[2024-01-05] VITALS (7 sets, daily range): BP systolic 114–151; BP diastolic 56–90; PULSE 74–118; RESP 17–20; TEMP 98.1–98.5; O2SAT 96–99
[2024-01-05 06:14] LABS: Basophils # (auto) 0.1 10 ^3/uL (0-0.2); Eosinophils # (auto) 0 10 ^3/uL (0-0.8); Eosinophils % (auto) 0.8 % (0.0-7.0); Lymphocytes # (auto) 1.2 10 ^3/uL (0.4-5.4); Mean Corpuscular Hemoglobin 22.9 pg (28.0-32.0); Monocytes # (auto) 0.6 10 ^3/uL (0-1.3); Neutrophils # (auto) 4.1 10 ^3/uL (1.6-8.6); Red Cell Distribution Width 17.7 % (11.8-14.3)
[2024-01-05 06:17] LABS: Hematocrit 33.5 % (41.0-53.0); Lymphocytes % (auto) 19.6 % (10.0-50.0); Mean Corpuscular Hgb Conc. 32.7 g/dL (32.0-36.0); Mean Corpuscular Volume 70.1 fL (80.0-100.0); Monocytes % (auto) 10.6 % (0.0-12.0); Red Blood Cells 4.78 10^6/uL (4.5-5.90)
[2024-01-05 06:28] LABS: Anion Gap 13 (5-15); Carbon Dioxide 24 mmol/L (20-30); Chloride 103 mmol/L (98-107); Potassium 3.3 mmol/L (3.5-5.1); Sodium 140 mmol/L (136-145)
[2024-01-05 06:30] LABS: Calcium 9.8 mg/dL (8.7-10.4)
[2024-01-05 06:34] LABS: BUN/Creatinine Ratio 15.7 (10.0-20.0); Blood Urea Nitrogen 18 mg/dL (9-23); Glucose 148 mg/dL (74-106)
[2024-01-05] MEDS: PANTOPRAZOLE 40 MG/10 ML VIAL INJ IV ONE (09:23)
[2024-01-05] MEDS: POTASSIUM EFFERVESENT TAB 25 MEQ PO ONE (09:23)
[2024-01-05] MEDS: ONDANSETRON HCL 4 MG/2 ML VIAL IV PRN (09:24)
[2024-01-05] MEDS ORDERED: MEGE20TA3 PO (12:19)
[2024-01-05] MEDS ORDERED: HYDR25TA4 PO ×2 (12:59)
[2024-01-05] MEDS ORDERED: AMIO200T33 PO (12:59)
[2024-01-05] MEDS: PANTOPRAZOLE 40 MG/10 ML VIAL INJ IV SCH (22:13)
[2024-01-06] VITALS (7 sets, daily range): BP systolic 125–161; BP diastolic 57–92; PULSE 93–117; RESP 15–20; TEMP 36.7; O2SAT 96–98
[2024-01-06 06:07] LABS: Basophils # (auto) 0.1 10 ^3/uL (0-0.2); Eosinophils # (auto) 0.1 10 ^3/uL (0-0.8); Lymphocytes # (auto) 1.4 10 ^3/uL (0.4-5.4); Monocytes # (auto) 0.6 10 ^3/uL (0-1.3); Neutrophils # (auto) 3.9 10 ^3/uL (1.6-8.6); White Blood Cell 6.1 10^3/uL (4.4-10.8)
[2024-01-06 06:10] LABS: Basophils % (auto) 1.2 % (0.0-2.0); Eosinophils % (auto) 1.3 % (0.0-7.0); Hematocrit 33.3 % (41.0-53.0); Hemoglobin 10.8 g/dL (13.5-17.5); Lymphocytes % (auto) 23.6 % (10.0-50.0); Mean Corpuscular Hemoglobin 22.8 pg (28.0-32.0); Mean Corpuscular Hgb Conc. 32.4 g/dL (32.0-36.0); Mean Corpuscular Volume 70.2 fL (80.0-100.0); Monocytes % (auto) 10.3 % (0.0-12.0); Neutrophils % (auto) 63.6 % (37.0-80.0); Nucleated Red Blood Cells % 0.1 %; Red Blood Cells 4.75 10^6/uL (4.5-5.90); Red Cell Distribution Width 17.8 % (11.8-14.3)
[2024-01-06 06:21] LABS: Anion Gap 10 (5-15); Carbon Dioxide 25 mmol/L (20-30); Chloride 103 mmol/L (98-107); Potassium 3.1 mmol/L (3.5-5.1); Sodium 138 mmol/L (136-145)
[2024-01-06 06:22] LABS: Calcium 9.5 mg/dL (8.7-10.4)
[2024-01-06 06:27] LABS: BUN/Creatinine Ratio 11.1 (10.0-20.0); Blood Urea Nitrogen 11 mg/dL (9-23); Glucose 138 mg/dL (74-106)
[2024-01-06] MEDS ORDERED: PANT40TA2 PO ×2 (08:02)
[2024-01-06] MEDS: POTASSIUM CHL 20MEQ/100ML 100 ML IV SCH (09:15)
[2024-01-06] MEDS ORDERED: POTASSIUM CHL 20MEQ/100ML 100 ML IV ONE (13:56)
[2024-01-06] MEDS ORDERED: MAGNESIUM SULFATE 1GM/100ML 100 ML IV SCH (14:00)
== END 2024-01-06 18:15 | disposition home or self-care (01) | DRG 698 ==
LOC: ER 16:21 → OVERFLOW 21:16 → EAST 21:16
PROVIDERS: ADMIT Internal Medicine Pulmonary Disease; ATTEND Emergency Medicine
DX: N30.40 Irradiation cystitis without hematuria (principal); N17.0 Acute kidney failure with tubular necrosis; K86.2 Cyst of pancreas; K92.2 Gastrointestinal hemorrhage, unspecified; K76.9 Liver disease, unspecified; N20.0 Calculus of kidney; E78.5 Hyperlipidemia, unspecified; I10 Essential (primary) hypertension; N28.1 Cyst of kidney, acquired; Z79.2 Long term (current) use of antibiotics; Z79.899 Other long term (current) drug therapy; Z79.82 Long term (current) use of aspirin; Z85.46 Personal history of malignant neoplasm of prostate
CPT/HCPCS: 36415; 74176; 76705; 76775; 80048; 80053; 81001; 82105; 82378; 82962; 83605; 83690; 83735; 83880; 84484; 85025; 86301; 87040; 87086; 96365; G0378; J1815; J2405; J2470; J3480

== ENCOUNTER → 2024-01-03 | Outpatient (CLI) | payer MEDICARE, BC ==
[~2024-01-03] MED LIST changes: +AMIO200T33 PO; +HYDR25TA4 PO; +RIVA20TA PO
[2024-01-03 14:21] LABS: Basophils # (auto) 0.1 10 ^3/uL (0-0.2); Basophils % (auto) 1.1 % (0.0-2.0); Eosinophils # (auto) 0.1 10 ^3/uL (0-0.8); Eosinophils % (auto) 0.7 % (0.0-7.0); Hematocrit 36.1 % (41.0-53.0); Hemoglobin 11.3 g/dL (13.5-17.5); Lymphocytes # (auto) 1.4 10 ^3/uL (0.4-5.4); Lymphocytes % (auto) 17.8 % (10.0-50.0); Mean Corpuscular Hemoglobin 22.2 pg (28.0-32.0); Mean Corpuscular Hgb Conc. 31.4 g/dL (32.0-36.0); Mean Corpuscular Volume 70.6 fL (80.0-100.0); Monocytes # (auto) 0.7 10 ^3/uL (0-1.3); Monocytes % (auto) 8.1 % (0.0-12.0); Neutrophils # (auto) 5.8 10 ^3/uL (1.6-8.6); Neutrophils % (auto) 72.3 % (37.0-80.0); Red Blood Cells 5.12 10^6/uL (4.5-5.90); Red Cell Distribution Width 17.9 % (11.8-14.3); White Blood Cell 8.1 10^3/uL (4.4-10.8)
[2024-01-03 15:15] LABS: Albumin 4.4 g/dL (3.2-4.8); Alkaline Phosphatase 58 U/L (46-116); Anion Gap 5 (5-15); Aspartate Aminotransferase < 8 U/L (13-40); BUN/Creatinine Ratio 14.2 (10.0-20.0); Bilirubin, Total 0.4 mg/dL (0.2-1.0); Blood Urea Nitrogen 31 mg/dL (9-23); Calcium 10.1 mg/dL (8.7-10.4); Carbon Dioxide 23 mmol/L (20-30); Chloride 107 mmol/L (98-107); Glucose 139 mg/dL (74-106); Potassium 5.3 mmol/L (3.5-5.1); Sodium 135 mmol/L (136-145); Total Protein 6.6 g/dL (5.7-8.2)
[2024-01-03 15:20] LABS: Alanine Aminotransferase < 9 U/L (7-40)
== END | disposition home or self-care (01) ==
LOC: LAB 14:08
PROVIDERS: ATTEND Internal Medicine
DX: E87.6 Hypokalemia (principal); E83.42 Hypomagnesemia; I50.31 Acute diastolic (congestive) heart failure
CPT/HCPCS: 36415; 80053; 85025

== ENCOUNTER → 2024-01-11 | Outpatient (CLI) | payer MEDICARE, BC ==
[~2024-01-11] MED LIST changes: +AMIO200T33 PO; +HYDR25TA4 PO; +PANT40TA2 PO; +RIVA20TA PO
[2024-01-11 15:15] LABS: Anion Gap 8 (5-15); Carbon Dioxide 30 mmol/L (20-30); Chloride 99 mmol/L (98-107); Potassium 2.7 mmol/L (3.5-5.1); Sodium 137 mmol/L (136-145)
[2024-01-11 15:16] LABS: Calcium 10.5 mg/dL (8.7-10.4)
[2024-01-11 15:21] LABS: BUN/Creatinine Ratio 12.5 (10.0-20.0); Blood Urea Nitrogen 19 mg/dL (9-23); Glucose 175 mg/dL (74-106)
[2024-01-11 15:22] LABS: Magnesium 1.8 mg/dL (1.6-2.6)
== END | disposition home or self-care (01) ==
LOC: LAB 14:39
PROVIDERS: ATTEND Internal Medicine
DX: I48.21 Permanent atrial fibrillation (principal); E87.5 Hyperkalemia; E83.42 Hypomagnesemia
CPT/HCPCS: 36415; 80048; 83735

== ENCOUNTER 2024-01-16 09:49 | Emergency (ER) | payer MEDICARE, BC ==
[~2024-01-16] VITALS: Ht 172.7 cm; Wt 87.3 kg
[~2024-01-16 09:49] MED LIST changes: -AMIO200T33 PO; -AMLO1TAB23 PO; -APIX5TAB PO; -MELO15TA29 PO; -RIVA20TA PO
[2024-01-16 11:46] LABS: Anion Gap 5 (5-15); Carbon Dioxide 28 mmol/L (20-30); Chloride 103 mmol/L (98-107); Potassium 4.9 mmol/L (3.5-5.1); Sodium 136 mmol/L (136-145)
[2024-01-16 11:47] LABS: Calcium 10.8 mg/dL (8.7-10.4)
[2024-01-16 11:52] LABS: BUN/Creatinine Ratio 11.5 (10.0-20.0); Blood Urea Nitrogen 19 mg/dL (9-23); Glucose 144 mg/dL (74-106)
[2024-01-16 13:13] VITALS: BP 138/77; PULSE 73; RESP 18; TEMP 97.8; O2SAT 99
== END 2024-01-16 13:15 | disposition home or self-care (01) ==
LOC: ER 09:49
DX: R79.9 Abnormal finding of blood chemistry, unspecified (principal); E87.6 Hypokalemia; E86.0 Dehydration; E11.22 Type 2 diabetes mellitus with diabetic chronic kidney disease; I12.9 Hypertensive chronic kidney disease with stage 1 through stage 4 chronic kidney disease, or unspecified chronic kidney disease; N18.9 Chronic kidney disease, unspecified
CPT/HCPCS: 36415; 80048

== ENCOUNTER → 2024-01-25 | Outpatient (CLI) | payer MEDICARE, BC ==
[2024-01-25 10:53] LABS: Anion Gap 2 (5-15); Calcium 10.1 mg/dL (8.7-10.4); Carbon Dioxide 27 mmol/L (20-30); Chloride 108 mmol/L (98-107); Sodium 137 mmol/L (136-145)
[2024-01-25 10:59] LABS: Glucose 128 mg/dL (74-106)
[2024-01-25 11:00] LABS: BUN/Creatinine Ratio 10.6 (10.0-20.0); Blood Urea Nitrogen 17 mg/dL (9-23); Magnesium 1.8 mg/dL (1.6-2.6)
[2024-01-25 11:16] LABS: Potassium 5.9 mmol/L (3.5-5.1)
== END | disposition home or self-care (01) ==
LOC: LAB 09:40
PROVIDERS: ATTEND Internal Medicine
DX: E87.6 Hypokalemia (principal); N17.9 Acute kidney failure, unspecified; N39.0 Urinary tract infection, site not specified
CPT/HCPCS: 36415; 80048; 83735

== ENCOUNTER → 2024-01-27 | Outpatient (CLI) | payer MEDICARE, BC ==
[2024-01-27 11:25] LABS: Anion Gap 2 (5-15); Carbon Dioxide 27 mmol/L (20-30); Chloride 107 mmol/L (98-107); Potassium 4.9 mmol/L (3.5-5.1); Sodium 136 mmol/L (136-145)
[2024-01-27 11:26] LABS: Calcium 10.4 mg/dL (8.7-10.4)
[2024-01-27 11:31] LABS: BUN/Creatinine Ratio 10.8 (10.0-20.0); Blood Urea Nitrogen 17 mg/dL (9-23); Glucose 113 mg/dL (74-106)
== END | disposition home or self-care (01) ==
LOC: LAB 10:23
PROVIDERS: ATTEND Internal Medicine
DX: E87.5 Hyperkalemia (principal)
CPT/HCPCS: 36415; 80048

== ENCOUNTER 2024-04-21 12:05 | Inpatient (IN) | payer MEDICARE, BC ==
[~2024-04-21] VITALS: Ht 175.3 cm; Wt 87.0 kg
[2024-04-21] MEDS: SODIUM CHLORIDE 0.9% 1,000 ML IV ONE (12:15)
--- NOTE | 2024-04-21 12:23 | ED.PDOC ---
Altered Mental Status HPI Comments 78 y.o male with PMH of HTN, DM, and hyperlipidemia, presents to the ED via EMS for an evaluation of a near syncopal episode today. EMS reports patient was at [employer] sitting on a bench, bystanders noticed he had a fixated stare and began leaning forward rapidly. Bystanders were able to catch patient, called his who was in another aisle in the store and called 911. EMS reports on scene, patient was pale, had a blood pressure of 86 systolic, was given 500mL IV fluids bringing pressure up slightly but dropped back down to 86 systolic prior to ED arrival. Patient is currently receiving 1000mL IV fluids on arrival. Patient reports for the past week, he has been feeling generally weak with chills and has been lying in bed all day. Today he felt better, got up to shower and accompanied his to [employer]. He mentions having a poor appetite, leading to a 10 pound weight loss. He denies any fever, nausea, vomiting, diarrhea, cough, congestion, chest pain, SOB, or urinary symptoms. Time Seen by MD: 12:08 Primary Care Provider: UNKNOWN Reviewed Notes: Nurses Notes, Advertising Editor Notes, Medications, Allergies Allergies: Coded Allergies: NO KNOWN ALLERGIES (Unverified , 09/16/22) Home Meds Active Scripts Pantoprazole Sodium Sesquihydr (Protonix) 40 Mg Tab, 40 MG PO DAILY, #30 TAB Prov:DAKOTA TATUM MD 01/06/24 Spironolactone (Aldactone) 25 Mg Tab, 25 MG PO DAILY for 90 Days, #90 TAB Prov:IVONE GRAF RESIDENT 10/20/23 Empagliflozin (Jardiance) 10 Mg Tab, 10 MG PO DAILY for 90 Days, #90 TAB Prov:IVONE GRAF RESIDENT 10/20/23 Reported Medications Hydrochlorothiazide (Hydrochlorothiazide) 25 Mg Tab, 1 TAB PO DAILY 01/05/24 Megestrol Acetate (Megace) 20 Mg Tb, 1 TAB PO BID 01/05/24 Pantoprazole Sodium Sesquihydr (Pantoprazole Sodium) 40 Mg Tab, 1 TAB PO BID 10/17/23 Hydrocodone-Acetaminophen (Hydrocodone/Acetaminophen 10-325 mg) 1 Tab Tab, 1 TAB PO QID PRN 10/17/23 Fluticasone Propionate (Fluticasone Propionate) 0.05 % Cre, 50 MCG COLEMAN BID for 30 Days, MCG both nostrils 09/17/22 Cholecalciferol (Vitamin D-3) 5,000 Unit Cap, 5000 UNIT PO DAILY, CAP 09/17/22 Aspirin (Aspir-Low) 81 Mg Tab, 81 MG PO DAILY for 30 Days, MG 09/17/22 Potassium Chloride (POTASSIUM CHLORIDE CR) 10 Meq Tb, 10 MEQ PO TID, TAB 09/17/22 Lisinopril (Lisinopril) 40 Mg Tab, 1 TAB PO DAILY 09/16/22 Metoprolol Tartrate (LOPRESSOR TABLET) 50 Mg Tb, 1 TAB PO BID 09/16/22 Metformin Hydrochloride (Metformin Hcl) 500 Mg Tab, 1 TAB PO BID 09/16/22 Gabapentin (Gabapentin) 800 Mg Tab, 1 TAB PO TID 09/16/22 Rosuvastatin Calcium (Rosuvastatin Calcium) 40 Mg Tab, 1 TAB PO DAILY 09/16/22 Information Source: Patient, Emergency Med Personnel Mode of Arrival: EMS Severity: Moderate Timing: Hours Duration: Since onset Quality: Decreased Alertness Recent: Other History of: None Associated Signs and Symptoms: Other (generalized weakness and chills ) Past Medical History PAST MEDICAL HISTORY: Cancer, CKF, DM, High Lipids, HTN Surgical History (Other): prostatectomy and back Family History Family History: Reviewed,noncontributory to illness Social History Smoker: Non-Smoker Alcohol: Denies ETOH Use Drugs: Denies Drug Use Lives In: Home Constitutional: reports: chills, fatigue, weakness; denies: diaphoresis, fever, malaise, sweats, others EENTM: denies: blurred vision, double vision, ear bleeding, ear discharge, ear drainage, ear pain, ear ringing, eye pain, eye redness, hearing loss, mouth pain, mouth swelling, nasal discharge, nose bleeding, nose congestion, nose pain, photophobia, tearing, throat pain, throat swelling, voice changes, others Respiratory: denies: cough, hemoptysis, orthopnea, SOB at rest, shortness of breath, SOB with excertion, stridor, wheezing, others Cardiovascular: denies: chest pain, dizzy spells, diaphoresis, Dyspnea on exertion, edema, irregular heart beat, left arm pain, lightheadedness, pa lpitations, PND, syncope, others Gastrointestinal: denies: abdomen distended, abdominal pain, blood streaked bowels, constipated, diarrhea, dysphagia, difficulty swallowing, hematemesis, melena, nausea, poor appetite, poor fluid intake, rectal bleeding, rectal pain, vomiting, others Genitourinary: denies: burning, dysuria, flank pain, frequency, hematuria, incontinence, penile discharge, penile sore, pain, testicle pain, testicle swelling, urgency, others Neurological: denies: dizziness, fainting, headache, left sided numbness, left sided weakness, numbness, paresthesia, pre-existing deficit, right sided numbness, right sided weakness, seizure, speech problems, tingling, tremors, weakness, others Musculoskeletal: denies: back pain, gout, joint pain, joint swelling, muscle pain, muscle stiffness, neck pain, others Integumetry: denies: bruises, change in color, change in hair/nails, dryness, laceration, lesions, lumps, rash, wounds, others Allergic/Immunocompromised: denies: Difficulty Healing, Frequent Infections, Hives, Itching, others Hematologic/Lymphatic: denies: anemia, blood clots, easy bleeding, easy br uising, swollen glands, others Endocrine: denies: excessive hunger, excessive sweating, excessive thirst, excessive urination, flushing, intolerance to cold, intolerance to heat, unexplained weight gain, unexplained weight loss, others Psychiatric: denies: anxiety, bipolar disorder, depression, hopeless, panic disorder, schizophrenia, sleepless, suicidal, others All Other Systems: Reviewed and Negative Physical Exam General Appearance: No Apparent Distress, Normal HEENT: Normal ENT Inspection Neck: Full Range of Motion, Normal Inspection Respiratory: Lungs Clear, No Accessory Muscle Use, No Respiratory Distress, Normal Breath Sounds Cardiovascular: No Edema, No JVD, Regular Rate/Rhythm Breast Exam: Deferred Gastrointestinal: Non Tender, Soft Genitalia: Deferred Pelvic: Deferred Rectal: Deferred Extremities: Normal inspection, Normal range of motion, Non-tender, No pedal edema Neurologic: Alert, No Motor Deficits, Normal Affect, Normal Mood, No Sensory Deficits Cerebellar Function: NOT DONE Reflexes: NOT DONE Skin: Dry, Pallor, Warm Lymphatic: NOT DONE EKG EKG : Comments Sinus rhythm, rate 78, NH prolonged at 2:47 a.m., QRS prolonged at 1:56 a.m., QTC prolonged at 5:23 a.m., left axis deviation, right bundle branch block and left anterior fascicular block, nonspecific T changes. No prior EKG available for comparison. Was a procedure done? Was a procedure done?: No Differential Diagnosis (ALOC) Differential Diagnosis: Dehydration, Hypoglycemia, Encephalopathy, CVA, Other (Arrhythmia, KS, PE,) Other Differential Diagnosis Electrolyte imbalance, hypotension, URI, Viral syndrome, Influenza X-Ray, Labs, Meds, VS Vital Signs Date Time Temp Pulse Resp B/P (MAP) Pulse Ox O2 Delivery O2 Flow Rate FiO2 04/21/24 19:01 81 14 132/68 (89) 98 04/21/24 17:10 77 14 137/72 (93) 98 04/21/24 16:00 78 04/21/24 15:10 79 13 151/78 (102) 99 04/21/24 13:10 97.7 78 13 136/74 (94) 100 97.7 04/21/24 13:05 78 13 100 Room Air* 0 21 04/21/24 12:28 97.6 75 18 130/63 (85) 97 04/21/24 12:26 78 Lab Test 04/21/24 15:10 04/21/24 13:37 04/21/24 12:45 04/21/24 12:44 Range/Units Lactic Acid Level 1.9 2.5 *H 0.4-2.0 mmol/L D-Dimer, Quantitative 0.38 0.0-0.49 mg/L FEU Troponin I High Sensitivity 10 10 </=54 ng/L Urine Color Light-yellow Yellow Urine Clarity Clear Clear Urine pH 6.0 5.0-9.0 Urine Specific [place] 1.009 1.001-1.035 Urine Protein Negative Negative Urine Ketones Negative Negative Urine Blood Negative Negative /uL Urine Nitrite Negative Negative Urine Bilirubin Negative Negative Urine Urobilinogen Normal Negative mg/dL Urine Leukocyte Esterase Negative Negative /uL Urine RBC 3 0 - 3 /hpf Urine WBC 2 0 - 3 /hpf Urine Squamous Epithelial Cells None seen <5 /hpf Urine Bacteria None seen None Seen /hpf Urine Hyaline Casts Few 0 - 2 /lpf Urine Glucose Normal Normal mg/dL White Blood Count 9.3 4.4-10.8 10^3/uL Red Blood Count 5.07 4.5-5.90 10^6/uL Hemoglobin 11.9 L 13.5-17.5 g/dL Hematocrit 38.6 L 41.0-53.0 % Mean Corpuscular Volume 76.1 L 80.0-100.0 fL Mean Corpuscular Hemoglobin 23.4 L 28.0-32.0 pg Mean Corpuscular Hemoglobin Concent 30.7 L 32.0-36.0 g/dL Red Cell Distribution Width 19.0 H 11.8-14.3 % Platelet Count 252 140-450 10^3/uL Mean Platelet Volume 9.5 6.9-10.8 fL Neutrophils (%) (Auto) 76.4 37.0-80.0 % Lymphocytes (%) (Auto) 12.4 10.0-50.0 % Monocytes (%) (Auto) 9.4 0.0-12.0 % Eosinophils (%) (Auto) 0.6 0.0-7.0 % Basophils (%) (Auto) 1.2 0.0-2.0 % Neutrophils # (Auto) 7.1 1.6-8.6 10 ^3/uL Lymphocytes # (Auto) 1.2 0.4-5.4 10 ^3/uL Monocytes # (Auto) 0.9 0-1.3 10 ^3/uL Eosinophils # (Auto) 0.1 0-0.8 10 ^3/uL Basophils # (Auto) 0.1 0-0.2 10 ^3/uL Nucleated Red Blood Cells 0.0 % Sodium Level 134 L 136-145 mmol/L Potassium Level 4.6 3.5-5.1 mmol/L Chloride Level 109 H 98-107 mmol/L Carbon Dioxide Level 20 20-31 mmol/L Anion Gap 5 5-15 Blood Urea Nitrogen 16 9-23 mg/dL Creatinine 1.72 H 0.700-1.30 mg/dL Glomerular Filtration Rate Calc 41 >90 mL/min BUN/Creatinine Ratio 9.3 L 10.0-20.0 Serum Glucose 157 H 74-106 mg/dL Calcium Level 10.0 8.7-10.4 mg/dL B-Type Natriuretic Peptide 147.29 0-100 pg/mL Test 04/21/24 12:28 Range/Units Influenza Type A Antigen Negative Negative Influenza Type B Antigen Negative Negative SARS-CoV-2 Antigen (Rapid) Negative NEGATIVE Current Medications Medications (Trade) Dose Ordered Sig/Simona Route Start Time Stop Time Status Last Admin Sodium Chloride 1,000 ml @ 1,000 mls/hr Q1H ONCE IV 04/21/24 12:15 04/21/24 13:14 DC 04/21/24 12:15 EXAM: CT HEAD WITHOUT CONTRAST HISTORY: syncope COMPARISON: CT HEAD WITHOUT CONTRAST on DOS: 10/19/23 TECHNIQUE: Axial images were obtained and reformatted in coronal and sagittal planes. All CT scans at this medical facility are performed using dose modulation techniques as appropriate to a performed exam including the following: Automated exposure control was utilized; adjustment of the MA and/or KV according to patient size; and use of iterative reconstruction technique. CT Dose: CTDI volume is 52.03 mGy. Dose-length product is 863.9 mGy*cm FINDINGS: Supratentorial Region: No evidence for large acute territorial ischemia. No intracranial hemorrhage is noted. Posterior Fossa: No acute abnormality. Brainstem: Unremarkable. Sellar/Suprasellar Region: Unremarkable. Ventricles, Cisterns, Sulci: Age-appropriate. Orbits: Unremarkable. Paranasal Sinuses: Unremarkable. Mastoid Air Cells: Unremarkable. Vasculature: Unremarkable. Bones/Soft Tissues: No acute abnormality. Other: None. IMPRESSION: 1. No acute intracranial process. CHEST RADIOGRAPH Indication:syncope Technique: Single frontal view of the chest was obtained COMPARISON: XY CHEST PORTABLE on DOS: 10/17/23 FINDINGS: Lines and Tubes: Spinal stimulator noted. Lungs: Clear Pleura: No effusion. No pneumothorax. Cardiomediastinal contours: Unremarkable Bones: Unremarkable IMPRESSION: 1. No acute disease. X-Ray, Labs, Meds, VS Comment 78-year-old male with a history hypertension, CKD, diabetes and hyperlipidemia complaining of generalized weakness for the past week, then a near syncopal episode today. Vitals unremarkable Exam remarkable for pallor EKG sinus rhythm, prolonged intervals, right bundle-branch block and left anterior fascicular block, nonspecific T changes CT head unremarkable Chest x-ray unremarkable CBC, BMP, troponin, D-dimer, BNP and UA remarkable for sodium 134, chloride 109, creatinine 1.72, no other abnormalities of acute significance Lactate 2.9 Influenza and COVID tests negative Patient received the following treatment in the ED: 1 L 0.9 normal saline IV bolus On re-evaluation, pressure was 134/68. Other vitals were unremarkable. Patient was resting comfortably. Plan is to admit the patient for brain MRI, Neurology and Cardiology evaluations. Time of 1ST Reevaluation: 12:16 Reevaluation 1ST: Unchanged Time of 2ND Reevaluation: 19:37 Reevaluation 2ND: Unchanged Patient Education/Counseling: Diagnosis, Treatment, Prognosis Family Education/Counseling: No Family Present Departure 1 Departure Time of Disposition: 19:30 Impression: Primary Impression: Syncope Qualified Codes: R55 - Syncope and collapse Additional Impressions: Elevated lactic acid level Electrolyte imbalance Bifascicular block Disposition: ADMITTED INPATIENT Admit to: Tele Condition: Guarded Critical Care Note Critical Care Time?: No Stability Stability form required: No I personally scribed for HARVINDER JADE MD ([facility]) on 04/21/24 at 12:23. Electronically submitted by Edita Fajardo ([facility]). I personally scribed for HARVINDER JADE MD ([facility]) on 04/21/24 at 13:53. Electronically submitted by Edita Fajardo ([facility]). HARVINDER JADE MD Apr 21, 2024 12:23
[2024-04-21 13:04] LABS: Urine Bacteria None Seen /hpf (None Seen)
[2024-04-21 13:05] VITALS: PULSE 78; RESP 13; O2SAT 100
[2024-04-21 13:23] LABS: Rapid Influenza A Negative (Negative); Rapid Influenza B Negative (Negative)
[2024-04-21 13:24] LABS: COVID19 ANTIGEN SOFIA FIA NEGATIVE (NEGATIVE)
[2024-04-21 13:24] LABS: Basophils # (auto) 0.1 10 ^3/uL (0-0.2); Basophils % (auto) 1.2 % (0.0-2.0); Eosinophils # (auto) 0.1 10 ^3/uL (0-0.8); Eosinophils % (auto) 0.6 % (0.0-7.0); Hematocrit 38.6 % (41.0-53.0); Hemoglobin 11.9 g/dL (13.5-17.5); Lymphocytes # (auto) 1.2 10 ^3/uL (0.4-5.4); Lymphocytes % (auto) 12.4 % (10.0-50.0); Mean Corpuscular Hemoglobin 23.4 pg (28.0-32.0); Mean Corpuscular Hgb Conc. 30.7 g/dL (32.0-36.0); Mean Corpuscular Volume 76.1 fL (80.0-100.0); Monocytes # (auto) 0.9 10 ^3/uL (0-1.3); Monocytes % (auto) 9.4 % (0.0-12.0); Neutrophils # (auto) 7.1 10 ^3/uL (1.6-8.6); Neutrophils % (auto) 76.4 % (37.0-80.0); Platelet Count (auto) 252 10^3/uL (140-450); Red Blood Cells 5.07 10^6/uL (4.5-5.90); White Blood Cell 9.3 10^3/uL (4.4-10.8)
[2024-04-21 13:26] LABS: Chloride 109 mmol/L (98-107); Potassium 4.6 mmol/L (3.5-5.1); Sodium 134 mmol/L (136-145)
[2024-04-21 13:27] LABS: Anion Gap 5 (5-15); Carbon Dioxide 20 mmol/L (20-31)
[2024-04-21 13:29] LABS: Urine Blood Negative /uL (Negative); Urine Clarity Clear (Clear); Urine Color Light-Yellow (Yellow); Urine Hyaline Cast FEW /lpf (0 - 2); Urine Protein, UAD Negative (Negative); Urine Specific Gravity 1.009 (1.001-1.035); Urine Urobilinogen Normal (Negative); Urine WBC 2 /hpf (0 - 3)
[2024-04-21 13:32] LABS: BUN/Creatinine Ratio 9.3 (10.0-20.0); Blood Urea Nitrogen 16 mg/dL (9-23); Glucose 157 mg/dL (74-106)
--- NOTE | 2024-04-21 13:34 | DVH ---
CHEST RADIOGRAPH Indication:syncope Technique: Single frontal view of the chest was obtained COMPARISON: XY CHEST PORTABLE on DOS: 10/17/23 FINDINGS: Lines and Tubes: Spinal stimulator noted. Lungs: Clear Pleura: No effusion. No pneumothorax. Cardiomediastinal contours: Unremarkable Bones: Unremarkable IMPRESSION: 1. No acute disease.
--- NOTE | 2024-04-21 13:43 | DVH ---
EXAM: CT HEAD WITHOUT CONTRAST HISTORY: syncope COMPARISON: CT HEAD WITHOUT CONTRAST on DOS: 10/19/23 TECHNIQUE: Axial images were obtained and reformatted in coronal and sagittal planes. All CT scans at this medical facility are performed using dose modulation techniques as appropriate t o a performed exam including the following: Automated exposure control was utilized; adjustment of th e MA and/or KV according to patient size; and use of iterative reconstruction technique. CT Dose: CTDI volume is 52.03 mGy. Dose-length product is 863.9 mGy*cm FINDINGS: Supratentorial Region: No evidence for large acute territorial ischemia. No intracranial hemorrhage is noted. Posterior Fossa: No acute abnormality. Brainstem: Unremarkable. Sellar/Suprasellar Region: Unremarkable. Ventricles, Cisterns, Sulci: Age-appropriate. Orbits: Unremarkable. Paranasal Sinuses: Unremarkable. Mastoid Air Cells: Unremarkable. Vasculature: Unremarkable. Bones/Soft Tissues: No acute abnormality. Other: None. IMPRESSION: 1. No acute intracranial process.
[2024-04-21 13:52] LABS: Lactic Acid w/Reflex 2.5 mmol/L (0.4-2.0)
[2024-04-21 19:20] VITALS: PULSE 81; RESP 14; O2SAT 99
[2024-04-21] MEDS ORDERED: ONDANSETRON HCL 4 MG/2 ML VIAL IV PRN (21:00)
[2024-04-21] MEDS ORDERED: DOCUSATE SOD 100 MG CAP PO PRN (21:00)
[2024-04-21] MEDS ORDERED: HYDROcodone-ACET 5/325MG TAB PO PRN (21:00)
[2024-04-21] MEDS ORDERED: DEXTROSE (50%) 50ML SYRG IV PRN (21:00)
[2024-04-21] MEDS: SODIUM CHLORIDE 0.9% 1,000 ML IV SCH (21:01)
[2024-04-21] MEDS: ACCU-CHEK COMFORT CURVE STRIP VI SCH (21:38)
[2024-04-21] MEDS: InsuLIN REG 1unit/0.01ml Soln (100units/ml) SC SCH (21:39)
[2024-04-21] MEDS: ATORVASTATIN 20 MG TAB PO SCH (21:40)
--- NOTE | 2024-04-21 23:05 | DVHHP2 ---
History of Present Illness Reason for Visit: Syncope History of Present Illness The patient is a 78-year-old male with past medical history of cancer, DM, hyperlipidemia, CKF, and hypertension who presented to [facility] ED for evaluation of syncopal episode. As reported by EMS, patient was at [employer] [facility] [facility] [employer] sitting on a bench when pedestrian notice he had a fixed stare, began leaning forward rapidly, and was able to catch the patient before landing on the floor. Patient's was called in another aisle in the store and called 911. When EMS arrived on the scene patient was pale, hypotensive with systolic blood pressure of 80, and was given bolus 500 mL IV fluids en route to our facility ED. patient was seen and evaluated in the ED, laboratory data shows WBC 9.3, hemoglobin 11.9, hematocrit 38.6, platelets 252, sodium 134, potassium 4.6, BUN 16, creatinine 1.72, lactic acid 2.5 trending down to 1.9, glucose 157, troponin 10, D-dimer 0.38, blood pressure 134/68, heart rate 82, temperature 98.8, O2 saturation 99% room air. Head CT showed no acute intracranial process. Please see medication orders section in the computer. On my assessment, patient denies chest pain, no headache, no dizziness, no loss of consciousness, no trauma, no shortness of breath, no nausea, no vomiting, no fever, no chills. Patient was admitted for further evaluation medical management. Past Medical History Cancer, CKF, DM, High Lipids, HTN Past Surgical History Prostatectomy and back surgery Family History Reviewed, noncontributory to the management of this case. Past Social History The patient lives at home, denies smoking, alcohol or illicit drugs abuse. Review of Systems Constitutional: Yes: Weakness, Other (Fatigue); No: Fever, Chills, Sweats, Malaise Eyes: No: Pain, Vision change, Conjunctivae inflammation, Eyelid inflammation, Other, Redness ENT: No: Ear pain, Ear discharge, Nose pain, Nose discharge, Nose congestion, Mouth pain, Mouth swelling, Throat pain, Throat swelling, Other Respiratory: No: Cough, Dry, Shortness of breath, SOB with excertion, Wheezing, Hemoptysis, Pleuritic Pain, Sputum, Wheezing, Other Cardiovascular: Other (Syncope); No: Chest Pain, Palpitations, Orthopnea, Parox ysmal Noc. Dyspnea, Edema, Lt Headedness Gastrointestinal: No: Nausea, Vomiting, Abdominal Pain, Diarrhea, Constipation, Melena, Hematochezia, Other Genitourinary: No Dysuria, No Frequency, No Incontinence, No Hematuria, No Retention, No Other Musculoskeletal: No: other, neck pain, shoulder pain, arm pain, back pain, hand pain, leg pain, foot pain Skin: No: Rash, Lesions, Jaundice, Bruising, Other Neurological: No: Weakness, Numbness, Incoordination, Change in speech, Confusion, Seizures, Other Allergies: Coded Allergies: NO KNOWN ALLERGIES (Unverified , 09/16/22) Medications Current Medications Medications Dose Ordered Sig/Simona Route Start Time Stop Time Status Last Admin Dose Admin Aspirin 81 mg DAILY PO 04/22/24 10:00 Pantoprazole Sodium 40 mg DAILY IV 04/22/24 10:00 Hydralazine HCl 10 mg Q6HP PRN IV 04/21/24 21:00 Atorvastatin Calcium 20 mg HS PO 04/21/24 22:00 04/21/24 21:40 20 MG Diagnostic Test (Pha) 1 strip ACHS 04/21/24 22:00 04/21/24 21:38 1 STRIP Insulin Human Regular ACHS SC 04/21/24 22:00 Dextrose 50 ml UD PRN IV 04/21/24 21:00 Sodium Chloride 1,000 ml @ 60 mls/hr [id number] IV 04/21/24 21:00 04/21/24 21:01 60 MLS/HR Acetaminophen/ Hydrocodone Bitart 1 tab Q4HP PRN PO 04/21/24 21:00 Ondansetron HCl 4 mg Q4HP PRN IV 04/21/24 21:00 Docusate Sodium 100 mg BIDPRN PRN PO 04/21/24 21:00 Acetaminophen 650 mg Q6HP PRN PO 04/21/24 21:00 Exam Vital Signs Vital Signs Date Time Temp Pulse Resp B/P (MAP) Pulse Ox O2 Delivery O2 Flow Rate FiO2 04/21/24 22:00 80 14 147/79 (101) 98 04/21/24 19:20 Room Air* 0 21 04/21/24 19:20 98.8 98.8 General Appearance: Alert, Oriented X3, Cooperative, No acute distress HEENT: Atraumatic, PERRLA, EOMI, Mucous membr. moist/pink Respiratory: Clear to auscultation, Normal air movement Cardiovascular: Regular rate, Normal S1, Normal S2, No murmurs Abdominal: Normal bowel sounds, Soft, No tenderness, No hepatospenomegaly, No masses Extremities: No clubbing, No cyanosis, No edema, Normal pulses, No tenderness/swelling Skin: No rashes, No breakdown, No significant lesion Neuro: Normal speech, Normal tone, Sensation intact, Cranial nerves 3-12 NL, Reflexes 2+, Other (Generalized weakness) Psych/Mental Status: Mental status NL, Mood NL Labs/Xrays Labs Test 04/21/24 21:37 04/21/24 15:10 04/21/24 13:37 04/21/24 12:45 Range/Units POC Glucose 119 H 70-106 mg/dl Lactic Acid Level 1.9 0.4-2.0 mmol/L D-Dimer, Quantitative 0.38 0.0-0.49 mg/L FEU Troponin I High Sensitivity 10 </=54 ng/L Urine Color Light-yellow Yellow Urine Clarity Clear Clear Urine pH 6.0 5.0-9.0 Urine Specific [place] 1.009 1.001-1.035 Urine Protein Negative Negative Urine Ketones Negative Negative Urine Blood Negative Negative /uL Urine Nitrite Negative Negative Urine Bilirubin Negative Negative Urine Urobilinogen Normal Negative mg/dL Urine Leukocyte Esterase Negative Negative /uL Urine RBC 3 0 - 3 /hpf Urine WBC 2 0 - 3 /hpf Urine Squamous Epithelial Cells None seen <5 /hpf Urine Bacteria None seen None Seen /hpf Urine Hyaline Casts Few 0 - 2 /lpf Urine Glucose Normal Normal mg/dL Test 04/21/24 12:44 04/21/24 12:28 Range/Units White Blood Count 9.3 4.4-10.8 10^3/uL Red Blood Count 5.07 4.5-5.90 10^6/uL Hemoglobin 11.9 L 13.5-17.5 g/dL Hematocrit 38.6 L 41.0-53.0 % Mean Corpuscular Volume 76.1 L 80.0-100.0 fL Mean Corpuscular Hemoglobin 23.4 L 28.0-32.0 pg Mean Corpuscular Hemoglobin Concent 30.7 L 32.0-36.0 g/dL Red Cell Distribution Width 19.0 H 11.8-14.3 % Platelet Count 252 140-450 10^3/uL Mean Platelet Volume 9.5 6.9-10.8 fL Neutrophils (%) (Auto) 76.4 37.0-80.0 % Lymphocytes (%) (Auto) 12.4 10.0-50.0 % Monocytes (%) (Auto) 9.4 0.0-12.0 % Eosinophils (%) (Auto) 0.6 0.0-7.0 % Basophils (%) (Auto) 1.2 0.0-2.0 % Neutrophils # (Auto) 7.1 1.6-8.6 10 ^3/uL Lymphocytes # (Auto) 1.2 0.4-5.4 10 ^3/uL Monocytes # (Auto) 0.9 0-1.3 10 ^3/uL Eosinophils # (Auto) 0.1 0-0.8 10 ^3/uL Basophils # (Auto) 0.1 0-0.2 10 ^3/uL Nucleated Red Blood Cells 0.0 % Sodium Level 134 L 136-145 mmol/L Potassium Level 4.6 3.5-5.1 mmol/L Chloride Level 109 H 98-107 mmol/L Carbon Dioxide Level 20 20-31 mmol/L Anion Gap 5 5-15 Blood Urea Nitrogen 16 9-23 mg/dL Creatinine 1.72 H 0.700-1.30 mg/dL Glomerular Filtration Rate Calc 41 >90 mL/min BUN/Creatinine Ratio 9.3 L 10.0-20.0 Serum Glucose 157 H 74-106 mg/dL Calcium Level 10.0 8.7-10.4 mg/dL B-Type Natriuretic Peptide 147.29 0-100 pg/mL Influenza Type A Antigen Negative Negative Influenza Type B Antigen Negative Negative SARS-CoV-2 Antigen (Rapid) Negative NEGATIVE PATIENT: SOFÍA QUIÑONEZ ACCT: [id number] UNIT: [id number] : 1945 LOC: ER ROOM / BED: / AGE / SEX: 78 / M ADM STATUS: REG ER SERVICE 1212 ORDERING PHYSICIAN: HARVINDER JADE MD PROCEDURE(s): HWOCT - HEAD WITHOUT CONTRAST REASON: syncope ORDER NUMBER(s): [id number], ACCESSION NUMBER(s): [id number] EXAM: CT HEAD WITHOUT CONTRAST HISTORY: syncope COMPARISON: CT HEAD WITHOUT CONTRAST on DOS: 10/19/23 TECHNIQUE: Axial images were obtained and reformatted in coronal and sagittal planes. All CT scans at this medical facility are performed using dose modulation techniques as appropriate to a performed exam including the following: Automated exposure control was utilized; adjustment of the MA and/or KV according to patient size; and use of iterative reconstruction technique. CT Dose: CTDI volume is 52.03 mGy. Dose-length product is 863.9 mGy*cm FINDINGS: Supratentorial Region: No evidence for large acute territorial ischemia. No intracranial hemorrhage is noted. Posterior Fossa: No acute abnormality. Brainstem: Unremarkable. Sellar/Suprasellar Region: Unremarkable. Ventricles, Cisterns, Sulci: Age-appropriate. Orbits: Unremarkable. Paranasal Sinuses: Unremarkable. Mastoid Air Cells: Unremarkable. Vasculature: Unremarkable. Bones/Soft Tissues: No acute abnormality. Other: None. IMPRESSION: 1. No acute intracranial process. ORDERING PHYSICIAN: HARVINDER JADE MD PROCEDURE(s): CXRP - CHEST PORTABLE REASON: syncope ORDER NUMBER(s): [id number], ACCESSION NUMBER(s): [id number] CHEST RADIOGRAPH Indication:syncope Technique: Single frontal view of the chest was obtained COMPARISON: XY CHEST PORTABLE on DOS: 10/17/23 FINDINGS: Lines and Tubes: Spinal stimulator noted. Lungs: Clear Pleura: No effusion. No pneumothorax. Cardiomediastinal contours: Unremarkable Bones: Unremarkable IMPRESSION: 1. No acute disease. Assessment/Plan Assessment/Plan Syncope and collapse Elevated lactic acid level Electrolyte imbalance Acute on chronic renal injury Generalized weakness Plan 1. Admit to telemetry unit 2. Breathing treatment 3. Pain control management 4. Management of fluids and electrolytes 5. Consultation for Cardiology 6. Diagnostic tests head CT 7. DVT prophylaxis-on aspirin 8. Repeat labs CBC, CMP in a.m. 9. Continue with current medical management 10. Treatment plan discussed with patient and RN. Patient verbalized understanding. Plan discussed with: Patient, Other (RN) My Orders Orders - CAROLINA SKELTON DNP Procedure Category Date Status Time Aspirin Tablet PHA 04/22/24 In Process 10:00 Pantoprazole PHA 04/22/24 In Process (Protonix) 10:00 Hydralazine Injection PHA 04/21/24 In Process (Apresoline Inject 21:00 Consistent DIET 04/22/24 Transmitted Carb(Ccho)Diabetes Breakfast Atorvastatin (Lipitor) PHA 04/21/24 In Process 22:00 Glucose Blood PHA 04/21/24 In Process (Accu-Chek Comfort 22:00 Insulin R (Human) PHA 04/21/24 In Process (Insulin R) 22:00 Dextrose 50% Syringe PHA 04/21/24 In Process 21:00 Allergies TRACY 04/21/24 In Process 20:46 Code Status CODE 04/21/24 Transmitted 20:46 Sodium Chloride 0.9% PHA 04/21/24 In Process 21:00 Oxygen Per Hour RT 04/21/24 Transmitted 20:46 Hydrocodone-Acet PHA 04/21/24 In Process 5/325mg Tab (Metz 21:00 Ondansetron Hcl PHA 04/21/24 In Process (Zofran) 21:00 Docusate Sodium PHA 04/21/24 In Process Capsule (Colace 21:00 Fall Risk Precautions [facility] 04/21/[address] 20:46 Complete Blood Count LAB 04/22/24 Verified 04:00 Comprehensive LAB 04/22/24 Verified Metabolic Panel 04:00 Condition: Serious TRACY 04/21/24 In Process 20:46 Acetaminophen Tablet PHA 04/21/24 In Process (Tylenol Tablet) 21:00 Sequential TRACY 04/21/24 In Process Compression Device Admit ADMIT 04/21/24 Verified 23:[address] [facility] 04/21/24 Verified Sublingual (Ntrostat 23:15 Morphine Sulfate PHA 04/21/24 Verified Injection 23:15 Notify Md Of Changes [facility] 04/21/24 Verified From Base 23:04 Vehicle Cost Engineer For [facility] 04/21/24 Verified 24 Hours 23:04 Emergency Dysrhythmia [facility] 04/21/24 Verified Protocol 23:04 Rhythm Strips Once [facility] 04/21/24 Verified Every Shift 23:04 Oxygen By Nasal RT 04/21/24 Verified Cannula 23:04 Problem List: (1) Syncope and collapse (2) Elevated lactic acid level (3) Generalized weakness (4) Electrolyte imbalance (5) Wddtf-so-fhdobcz kidney injury Date of Service: Apr 21, 2024 Billing Provider: CAROLINA SKELTON DNP Common Visit Codes: [id number] INP/OBS CARE (HIGH) CAROLINA SKELTON DNP Apr 21, 2024 23:05
[2024-04-21] MEDS ORDERED: MORPHINE SULFATE INJ 2 MG/ml SYRG IV PRN (23:15)
[2024-04-21] MEDS ORDERED: NITROGLYCERIN 0.4 MG SL TAB SL PRN (23:15)
[2024-04-22] VITALS (8 sets, daily range): BP systolic 111–169; BP diastolic 60–96; PULSE 85–95; RESP 16–18; TEMP 36.7; O2SAT 95–100
[2024-04-22] MEDS: hydrALAZINE HCL 20 MG/ML VL IV PRN (06:51)
[2024-04-22 07:09] LABS: Basophils # (auto) 0.1 10 ^3/uL (0-0.2); Eosinophils # (auto) 0.1 10 ^3/uL (0-0.8); Hemoglobin 10.4 g/dL (13.5-17.5); Lymphocytes # (auto) 0.9 10 ^3/uL (0.4-5.4); Lymphocytes % (auto) 13.7 % (10.0-50.0); Monocytes # (auto) 0.7 10 ^3/uL (0-1.3); Nucleated Red Blood Cells % 0.1 %
[2024-04-22 07:11] LABS: Eosinophils % (auto) 1.1 % (0.0-7.0); Hematocrit 33.6 % (41.0-53.0); Mean Corpuscular Hemoglobin 22.9 pg (28.0-32.0); Mean Corpuscular Hgb Conc. 30.9 g/dL (32.0-36.0); Monocytes % (auto) 9.9 % (0.0-12.0); Neutrophils # (auto) 5.1 10 ^3/uL (1.6-8.6); Neutrophils % (auto) 74.3 % (37.0-80.0); Platelet Count (auto) 188 10^3/uL (140-450); Red Blood Cells 4.54 10^6/uL (4.5-5.90); Red Cell Distribution Width 18.6 % (11.8-14.3); White Blood Cell 6.9 10^3/uL (4.4-10.8)
[2024-04-22 07:48] LABS: Albumin 3.9 g/dL (3.2-4.8); Alkaline Phosphatase 58 U/L (46-116); Anion Gap 6 (5-15); Aspartate Aminotransferase 11 U/L (13-40); BUN/Creatinine Ratio 10.8 (10.0-20.0); Blood Urea Nitrogen 14 mg/dL (9-23); Calcium 9.8 mg/dL (8.7-10.4); Carbon Dioxide 22 mmol/L (20-31); Chloride 109 mmol/L (98-107); Glucose 128 mg/dL (74-106); Potassium 3.6 mmol/L (3.5-5.1); Sodium 137 mmol/L (136-145)
[2024-04-22 07:49] LABS: Bilirubin, Total 0.4 mg/dL (0.2-1.0); Total Protein 6.1 g/dL (5.7-8.2)
[2024-04-22 07:58] LABS: Alanine Aminotransferase 9 U/L (7-40)
--- NOTE | 2024-04-22 08:44 | ECG ---
[facility] Test Date: 2024-04-21 Test Time: 12:26:58 Pat Name: SOFÍA QUIÑONEZ Department: er Room: 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
[2024-04-22] MEDS: PANTOPRAZOLE 40 MG/10 ML VIAL INJ IV SCH (09:07)
[2024-04-22] MEDS: ASPirin 81 mg TAB PO SCH (09:08)
[2024-04-22] MEDS: ACETAMINOPHEN 325 MG TAB PO PRN (09:19)
--- NOTE | 2024-04-22 11:09 | DVHDS2 ---
Discharge Summary Date of Admission Apr 21, 2024 at 23:04 Date of Discharge: Apr 22, 2024 Labs/Diagnostic Data: Laboratory Results Test 04/22/24 05:56 04/22/24 05:52 04/21/24 15:10 04/21/24 13:37 POC Glucose 140 mg/dl (70-106) White Blood Count 6.9 10^3/uL (4.4-10.8) Red Blood Count 4.54 10^6/uL (4.5-5.90) Hemoglobin 10.4 g/dL (13.5-17.5) Hematocrit 33.6 % (41.0-53.0) Mean Corpuscular Volume 74.0 fL (80.0-100.0) Mean Corpuscular Hemoglobin 22.9 pg (28.0-32.0) Mean Corpuscular Hemoglobin Concent 30.9 g/dL (32.0-36.0) Red Cell Distribution Width 18.6 % (11.8-14.3) Platelet Count 188 10^3/uL (140-450) Mean Platelet Volume 9.6 fL (6.9-10.8) Neutrophils (%) (Auto) 74.3 % (37.0-80.0) Lymphocytes (%) (Auto) 13.7 % (10.0-50.0) Monocytes (%) (Auto) 9.9 % (0.0-12.0) Eosinophils (%) (Auto) 1.1 % (0.0-7.0) Basophils (%) (Auto) 1.0 % (0.0-2.0) Neutrophils # (Auto) 5.1 10 ^3/uL (1.6-8.6) Lymphocytes # (Auto) 0.9 10 ^3/uL (0.4-5.4) Monocytes # (Auto) 0.7 10 ^3/uL (0-1.3) Eosinophils # (Auto) 0.1 10 ^3/uL (0-0.8) Basophils # (Auto) 0.1 10 ^3/uL (0-0.2) Nucleated Red Blood Cells 0.1 % Sodium Level 137 mmol/L (136-145) Potassium Level 3.6 mmol/L (3.5-5.1) Chloride Level 109 mmol/L (98-107) Carbon Dioxide Level 22 mmol/L (20-31) Anion Gap 6 (5-15) Blood Urea Nitrogen 14 mg/dL (9-23) Creatinine 1.30 mg/dL (0.700-1.30) Glomerular Filtration Rate Calc 57 mL/min (>90) BUN/Creatinine Ratio 10.8 (10.0-20.0) Serum Glucose 128 mg/dL (74-106) Calcium Level 9.8 mg/dL (8.7-10.4) Total Bilirubin 0.4 mg/dL (0.2-1.0) Aspartate Amino Transferase (AST) 11 U/L (13-40) Alanine Aminotransferase (ALT) 9 U/L (7-40) Alkaline Phosphatase 58 U/L (46-116) Total Protein 6.1 g/dL (5.7-8.2) Albumin 3.9 g/dL (3.2-4.8) Lactic Acid Level 1.9 mmol/L (0.4-2.0) D-Dimer, Quantitative 0.38 mg/L FEU (0.0-0.49) Troponin I High Sensitivity 10 ng/L (</=54) Test 04/21/24 12:45 04/21/24 12:44 04/21/24 12:28 Urine Color Light-yellow (Yellow) Urine Clarity Clear (Clear) Urine pH 6.0 (5.0-9.0) Urine Specific [place] 1.009 (1.001-1.035) Urine Protein Negative (Negative) Urine Ketones Negative (Negative) Urine Blood Negative /uL (Negative) Urine Nitrite Negative (Negative) Urine Bilirubin Negative (Negative) Urine Urobilinogen Normal mg/dL (Negative) Urine Leukocyte Esterase Negative /uL (Negative) Urine RBC 3 /hpf (0 - 3) Urine WBC 2 /hpf (0 - 3) Urine Squamous Epithelial Cells None seen /hpf (<5) Urine Bacteria None seen /hpf (None Seen) Urine Hyaline Casts Few /lpf (0 - 2) Urine Glucose Normal mg/dL (Normal) B-Type Natriuretic Peptide 147.29 pg/mL (0-100) Influenza Type A Antigen Negative (Negative) Influenza Type B Antigen Negative (Negative) SARS-CoV-2 Antigen (Rapid) Negative (NEGATIVE) Other Laboratory Tests 04/22/24 05:52 Brief Hx & Hospital Course: 78 y.o male with PMH of HTN, DM, and hyperlipidemia, presents to the ED via EMS for an evaluation of a near syncopal episode today. EMS reports patient was at [employer] sitting on a bench, bystanders noticed he had a fixated stare and began leaning forward rapidly. Bystanders were able to catch patient, called his who was in another aisle in the store and called 911. EMS reports on scene, patient was pale, had a blood pressure of 86 systolic, was given 500mL IV fluids bringing pressure up slightly but dropped back down to 86 systolic prior to ED arrival. Patient is currently receiving 1000mL IV fluids on arrival. Patient reports for the past week, he has been feeling generally weak with chills and has been lying in bed all day. Today he felt better, got up to shower and accompanied his to [place]. He mentions having a poor appetite, leading to a 10 pound weight loss. He denies any fever, nausea, vomiting, diarrhea, cough, congestion, chest pain, SOB, or urinary symptoms. Condition at Discharge: Good Final Diagnosis/Problems List syncope and bradycardia resolved Discharge Disposition: Home Discharge Instruct/Medications Diet: Regular Activity: No Restrictions, As Tolerated Discharge Statement: "Patient was advised to return to the ER or call 911 if any headaches, dizziness, shortness of breath, chest pain, abdominal pain, bleeding, fevers, or worsening of medical condition. Patient was counseled about treatment plan, medications, possible side effects, patientverbalized understanding. All questions were answered to the best of my ability. This discharge took greater then 30 minutes in planning, reviewing documentation, counseling the patient, and discussing with other team members." ASSESSMENT ASSESSMENT Assessment Date of Service: Apr 22, 2024 Billing Provider: SYL GOMEZ MD Common Visit Codes: [id number]/[id number] DISCH DAY >30min SYL GOMEZ MD Apr 22, 2024 11:09
== END 2024-04-22 14:04 | disposition home or self-care (01) | DRG 640 ==
LOC: EDBD 12:05 → ER 12:05 → TELE 23:04 → TELE-WESTW 23:08
PROVIDERS: ADMIT Nurse Practitioner Family; ATTEND Nurse Practitioner Family
DX: E86.0 Dehydration (principal); N17.0 Acute kidney failure with tubular necrosis; I45.2 Bifascicular block; R00.1 Bradycardia, unspecified; N18.9 Chronic kidney disease, unspecified; E11.22 Type 2 diabetes mellitus with diabetic chronic kidney disease; I12.9 Hypertensive chronic kidney disease with stage 1 through stage 4 chronic kidney disease, or unspecified chronic kidney disease; E78.5 Hyperlipidemia, unspecified; Z20.822 Contact with and (suspected) exposure to COVID-19; Z79.891 Long term (current) use of opiate analgesic; Z79.899 Other long term (current) drug therapy; Z79.84 Long term (current) use of oral hypoglycemic drugs
CPT/HCPCS: 36415; 70450; 71045; 80048; 80053; 81001; 82962; 83605; 83880; 84484; 85025; 85379; 87426; 87804; 93005; 96360; 96361; G0378; J1815; J2470

== ENCOUNTER 2024-11-07 15:56 | Emergency (ER) | payer BC, MEDICARE, OTHER ==
[~2024-11-07] VITALS: Ht 193 cm; Wt 78.6 kg
[2024-11-07 16:14] VITALS: BP 119/80; PULSE 70; RESP 16; TEMP 97.7; O2SAT 100
--- NOTE | 2024-11-07 16:21 | ED.PDOC ---
History of Present Illness HPI Comments 79-year-old male brought in by EMS presents with a chief complaint of wound bleeding x 6 days. Patient states that x 6 days ago he fell out of his bed and hit his right eye on his night stand. Patient reports that they glued his laceration shut from the ordeal. Patient had a follow-up with them today, but th miri just saw that patients wound was still bleeding and they called 911. Patient is on blood thinners for his A-Fib. Patient denies any other symptoms at this time. Chief Complaint: Fall Injury Time Seen by MD: 16:00 Primary Care Provider: UNKNOWN Reviewed Notes: Nurses Notes, Medications, Allergies Allergies: Coded Allergies: Metronidazole (Verified Allergy, Unknown, 11/07/24) Home Meds Active Scripts Pantoprazole Sodium Sesquihydr (Protonix) 40 Mg Tab, 40 MG PO DAILY, #30 TAB Prov:DAKOTA TATUM MD 01/06/24 Spironolactone (Aldactone) 25 Mg Tab, 25 MG PO DAILY for 90 Days, #90 TAB Prov:IVONE GRAF RESIDENT 10/20/23 Empagliflozin (Jardiance) 10 Mg Tab, 10 MG PO DAILY for 90 Days, #90 TAB Prov:IVONE GRAF RESIDENT 10/20/23 Reported Medications Hydrochlorothiazide (Hydrochlorothiazide) 25 Mg Tab, 1 TAB PO DAILY 01/05/24 Megestrol Acetate (Megace) 20 Mg Tb, 1 TAB PO BID 01/05/24 Pantoprazole Sodium Sesquihydr (Pantoprazole Sodium) 40 Mg Tab, 1 TAB PO BID 10/17/23 Hydrocodone-Acetaminophen (Hydrocodone/Acetaminophen 10-325 mg) 1 Tab Tab, 1 TAB PO QID PRN 10/17/23 Fluticasone Propionate (Fluticasone Propionate) 0.05 % Cre, 50 MCG COLEMAN BID for 30 Days, MCG both nostrils 09/17/22 Cholecalciferol (Vitamin D-3) 5,000 Unit Cap, 5000 UNIT PO DAILY, CAP 09/17/22 Aspirin (Aspir-Low) 81 Mg Tab, 81 MG PO DAILY for 30 Days, MG 09/17/22 Potassium Chloride (POTASSIUM CHLORIDE CR) 10 Meq Tb, 10 MEQ PO TID, TAB 09/17/22 Lisinopril (Lisinopril) 40 Mg Tab, 1 TAB PO DAILY 09/16/22 Metoprolol Tartrate (LOPRESSOR TABLET) 50 Mg Tb, 1 TAB PO BID 09/16/22 Metformin Hydrochloride (Metformin Hcl) 500 Mg Tab, 1 TAB PO BID 09/16/22 Gabapentin (Gabapentin) 800 Mg Tab, 1 TAB PO TID 09/16/22 Rosuvastatin Calcium (Rosuvastatin Calcium) 40 Mg Tab, 1 TAB PO DAILY 09/16/22 Information Source: Patient, Emergency Med Personnel Mode of Arrival: EMS Severity: Moderate Timing: Days Duration: Since onset Prehospital treatment: None Location: Abrasions to the right side of the head with no active bleeding but there is a wound that has been closed Past Medical History PAST MEDICAL HISTORY: Cancer, CKF, DM, High Lipids, HTN Family History Family History: Reviewed,noncontributory to illness Social History Smoker: Non-Smoker Alcohol: Denies ETOH Use Drugs: Denies Drug Use Lives In: Home Constitutional: denies: chills, diaphoresis, fatigue, fever, malaise, sweats, weakness, others EENTM: denies: blurred vision, double vision, ear bleeding, ear discharge, ear drainage, ear pain, ear ringing, eye pain, eye redness, hearing loss, mouth pain, mouth swelling, nasal discharge, nose bleeding, nose congestion, nose pain, photophobia, tearing, throat pain, throat swelling, voice changes, others Respiratory: denies: cough, hemoptysis, orthopnea, SOB at rest, shortness of breath, SOB with excertion, stridor, wheezing, others Cardiovascular: denies: chest pain, dizzy spells, diaphoresis, Dyspnea on exertion, edema, irregular heart beat, left arm pain, lightheadedness, palpitations, PND, syncope, others Gastrointestinal: denies: abdomen distended, abdominal pain, blood streaked bowels, constipated, diarrhea, dysphagia, difficulty swallowing, hematemesis, melena, nausea, poor appetite, poor fluid intake, rectal bleeding, rectal pain, vomiting, others Genitourinary: denies: burning, dysuria, flank pain, frequency, hematuria, i ncontinence, penile discharge, penile sore, pain, testicle pain, testicle swelling, urgency, others Neurological: denies: dizziness, fainting, headache, left sided numbness, left sided weakness, numbness, paresthesia, pre-existing deficit, right sided numbness, right sided weakness, seizure, speech problems, tingling, tremors, weakness, others Musculoskeletal: denies: back pain, gout, joint pain, joint swelling, muscle pain, muscle stiffness, neck pain, others Integumetry: reports: wounds; denies: bruises, change in color, change in hair/nails, dryness, laceration, lesions, lumps, rash, others Allergic/Immunocompromised: denies: Difficulty Healing, Frequent Infections, Hives, Itching, others Hematologic/Lymphatic: denies: anemia, blood clots, easy bleeding, easy bruising, swollen glands, others Endocrine: denies: excessive hunger, excessive sweating, excessive thirst, excessive urination, flushing, intolerance to cold, intolerance to heat, unexplained weight gain, unexplained weight loss, others Psychiatric: denies: anxiety, bipolar disorder, depression, hopeless, panic disorder, schizophrenia, sleepless, suicidal, others All Other Systems: Reviewed and Negative Physical Exam General Appearance: No Apparent Distress HEENT: Normal ENT Inspection, Pharynx Normal, TMs Normal, Other (A wound that has close to the right side of the eye) Neck: Full Range of Motion, Non-Tender, Normal, Normal Inspection Respiratory: Chest Non-Tender, Lungs Clear, No Accessory Muscle Use, No Res piratory Distress, Normal Breath Sounds Cardiovascular: No Edema, No JVD, No Murmur, No Gallop, Normal Peripheral Pulses, Regular Rate/Rhythm Breast Exam: Deferred Gastrointestinal: No Organomegaly, Non Tender, No Pulsatile Mass, Normal Bowel Sounds, Soft Genitalia: Deferred Pelvic: Deferred Rectal: Deferred Extremities: No calf tenderness, Normal capillary refill, Normal inspection, Normal range of motion, Non-tender, No pedal edema Musculoskeletal : Apperance: Normal Neurologic: Alert, lab specialist II-XII nml as Tested, No Motor Deficits, Normal Affect, Normal Mood, No Sensory Deficits Cerebellar Function: Normal Reflexes: Normal Skin: Dry, Normal Color, Warm Lymphatic: No Adenopathy Was a procedure done? Was a procedure done?: No Differential Dx Considerations may include: Blunt head trauma, intracranial bleed X-Ray, Labs, Meds, VS Vital Signs Date Time Temp Pulse Resp B/P (MAP) Pulse Ox O2 Delivery O2 Flow Rate FiO2 11/07/24 16:14 97.7 70 16 119/80 (93) 100 97.7 At this time the wound was cleaned The CAT scan of the head shows no sign of any abnormalities The patient is being discharged with a diagnosis of wound check as well as blunt head trauma Images Reviewed?: Images reviewed and evaluated by me Time of 1ST Reevaluation: 16:30 Reevaluation 1ST: Unchanged Time of 2ND Reevaluation: 16:56 Reevaluation 2ND: Improved Patient Education/Counseling: Diagnosis, Treatment, Prognosis, Need For Follow Up Family Education/Counseling: No Family Present Departure 1 Departure Time of Disposition: 16:56 Impression: Primary Impression: Blunt head trauma Qualified Codes: S09.8XXA - Other specified injuries of head, initial encounter Additional Impression: Visit for wound check Disposition: 01 HOME / SELF CARE / HOMELESS Condition: Other Critical Care Note Critical Care Time?: No Stability Stability form required: No Heart Score Heart Score: Heart Score Response (Comments) Value History N/A 0 EKG N/A 0 Age N/A 0 Risk Factors N/A 0 Troponin N/A 0 Total 0 I personally scribed for KALEIGH RIZO MD ([email or web address]) on 11/07/24 at 16:21. Electronically submitted by Mauro Minaya ([email or web address]). KALEIGH RIZO MD November 07, 2024 16:21
--- NOTE | 2024-11-07 16:51 | DVH ---
Procedure: CT HEAD WITHOUT CONTRAST Study Date and Requested Time: 11/07/2024 04:15 PM History: fall Comparison: CT HEAD WITHOUT CONTRAST on DOS: 04/21/24, CT HEAD WITHOUT CONTRAST on DOS: 10/19/23 Dose: CTDI: 58.45 mGy DLP: 1151.7 cm mGycm Technique: Multiplanar images obtained through the brain without intravenous contrast. Findings: Moderate diffuse brain atrophy. Mild chronic small vessel ischemic changes. No hemorrhages, masses, mass effect, midline shift, herniation or cytotoxic edema following a large v ascular territory. No intra-axial or extra-axial fluid collections. No evidence of hydrocephalus. The basal cisterns are patent. Bilateral dural calcifications. The pituitary gland, sella and parasellar regions are unremarkable. The cerebellar tonsils are in nor mal position. The cerebellum is unremarkable. Bilateral lens replacement. Otherwise, orbits and globes are unremarkable. The paranasal sinuses and mastoids are clear. There are no worrisome calvarial lesions. 7 mm left frontal lobe lytic lesion: U nchanged on prior imaging. Impression: No evidence of acute intracranial abnormality.
== END 2024-11-07 18:45 | disposition home or self-care (01) ==
LOC: ER 15:56 → EDBD 15:56 → ER 18:45
DX: S00.81XA Abrasion of other part of head, initial encounter (principal); E11.22 Type 2 diabetes mellitus with diabetic chronic kidney disease; E78.5 Hyperlipidemia, unspecified; I48.91 Unspecified atrial fibrillation; I12.9 Hypertensive chronic kidney disease with stage 1 through stage 4 chronic kidney disease, or unspecified chronic kidney disease; N18.9 Chronic kidney disease, unspecified; Z79.899 Other long term (current) drug therapy; Z88.1 Allergy status to other antibiotic agents; Z79.84 Long term (current) use of oral hypoglycemic drugs; Z79.82 Long term (current) use of aspirin; Z79.01 Long term (current) use of anticoagulants; Z85.9 Personal history of malignant neoplasm, unspecified; W06.XXXA Fall from bed, initial encounter; Y93.89 Activity, other specified; Y92.89 Other specified places as the place of occurrence of the external cause; Y99.8 Other external cause status
CPT/HCPCS: 70450

== ENCOUNTER 2025-05-14 10:33 | Inpatient (IN) | payer OTHER ==
[2025-05-14] VITALS (35 sets, daily range): BP systolic 101–163; BP diastolic 35–79; PULSE 33–69; RESP 11–19; TEMP 97.1–97.6; O2SAT 92–100
[~2025-05-14] VITALS: Ht 172.7 cm; Wt 75.1 kg
--- NOTE | 2025-05-14 11:06 | ED.PDOC ---
History of Present Illness HPI Comments 79 year old male with PMHx cancer, CKF, a-fib, DM, HLD, HTN presents to the ED with a chief complaint of bradycardia onset today. Per EMS, patient went to [facility] for a physical, was bradycardiac in the low 30s, 911 was called. Upon ED arrival, HR was 33, BP 157/62. Patient states he currently has no c omplaints. Denies fever, chills, chest pain, shortness of breath, dizziness, headache, blurred vision, ear ringing, numbness/tingling, dysuria, hematuria. No other symptoms or modifying factors present at this time. Chief Complaint: Dizziness Time Seen by MD: 10:55 Primary Care Provider: MICHAEL Reviewed Notes: Medications, Allergies Allergies: Coded Allergies: Metronidazole (Verified Allergy, Unknown, 11/07/24) Home Meds Active Scripts Pantoprazole Sodium Sesquihydr (Protonix) 40 Mg Tab, 40 MG PO DAILY, #30 TAB Prov:DAKOTA TATUM MD 01/06/24 Spironolactone (Aldactone) 25 Mg Tab, 25 MG PO DAILY for 90 Days, #90 TAB Prov:IVONE GRAF RESIDENT 10/20/23 Empagliflozin (Jardiance) 10 Mg Tab, 10 MG PO DAILY for 90 Days, #90 TAB Prov:IVONE GRAF RESIDENT 10/20/23 Reported Medications Hydrochlorothiazide (Hydrochlorothiazide) 25 Mg Tab, 1 TAB PO DAILY 01/05/24 Megestrol Acetate (Megace) 20 Mg Tb, 1 TAB PO BID 01/05/24 Pantoprazole Sodium Sesquihydr (Pantoprazole Sodium) 40 Mg Tab, 1 TAB PO BID 10/17/23 Hydrocodone-Acetaminophen (Hydrocodone/Acetaminophen 10-325 mg) 1 Tab Tab, 1 TAB PO QID PRN 10/17/23 Fluticasone Propionate (Fluticasone Propionate) 0.05 % Cre, 50 MCG COLEMAN BID for 30 Days, MCG both nostrils 09/17/22 Cholecalciferol (Vitamin D-3) 5,000 Unit Cap, 5000 UNIT PO DAILY, CAP 09/17/22 Aspirin (Aspir-Low) 81 Mg Tab, 81 MG PO DAILY for 30 Days, MG 09/17/22 Potassium Chloride (POTASSIUM CHLORIDE CR) 10 Meq Tb, 10 MEQ PO TID, TAB 09/17/22 Lisinopril (Lisinopril) 40 Mg Tab, 1 TAB PO DAILY 09/16/22 Metoprolol Tartrate (LOPRESSOR TABLET) 50 Mg Tb, 1 TAB PO BID 09/16/22 Metformin Hydrochloride (Metformin Hcl) 500 Mg Tab, 1 TAB PO BID 09/16/22 Gabapentin (Gabapentin) 800 Mg Tab, 1 TAB PO TID 09/16/22 Rosuvastatin Calcium (Rosuvastatin Calcium) 40 Mg Tab, 1 TAB PO DAILY 09/16/22 Information Source: Patient, Emergency Med Personnel Mode of Arrival: EMS Severity: Moderate Timing: Hours Duration: Since onset Prehospital treatment: None Past Medical History PAST MEDICAL HISTORY: AFIB, Cancer, CKF, DM, High Lipids, HTN Family History Family History: Reviewed,noncontributory to illness Social History Smoker: Non-Smoker Alcohol: Denies ETOH Use Drugs: Denies Drug Use Lives In: Home Constitutional: denies: chills, diaphoresis, fatigue, fever, malaise, sweats, weakness, others EENTM: denies: blurred vision, double vision, ear bleeding, ear discharge, ear drainage, ear pain, ear ringing, eye pain, eye redness, hearing loss, mouth pain, mouth swelling, nasal discharge, nose bleeding, nose congestion, nose pain, photophobia, tearing, throat pain, throat swelling, voice changes, others Respiratory: denies: cough, hemoptysis, orthopnea, SOB at rest, shortness of breath, SOB with excertion, stridor, wheezing, others Cardiovascular: reports: others (bradycardia ); denies: chest pain, dizzy spells, diaphoresis, Dyspnea on exertion, edema, irregular heart beat, left arm pain, lightheadedness, palpitations, PND, syncope Gastrointestinal: denies: abdomen distended, abdominal pain, blood streaked bowels, constipated, diarrhea, dysphagia, difficulty swallowing, hematemesis, melena, nausea, poor appetite, poor fluid intake, rectal bleeding, rectal pain, vomiting, others Genitourinary: denies: burning, dysuria, flank pain, frequency, hematuria, incontinence, penile discharge, penile sore, pain, testicle pain, testicle swelling, urgency, others Neurological: denies: dizziness, fainting, headache, left sided numbness, left sided weakness, numbness, paresthesia, pre-existing deficit, right sided numbness, right sided weakness, seizure, speech problems, tingling, tremors, weakness, others Musculoskeletal: denies: back pain, gout, joint pain, joint swelling, muscle pain, muscle stiffness, neck pain, others Integumetry: denies: bruises, change in color, change in hair/nails, dryness, laceration, lesions, lumps, rash, wounds, others Allergic/Immunocompromised: denies: Difficulty Healing, Frequent Infections, Hives, Itching, others Hematologic/Lymphatic: denies: anemia, blood clots, easy bleeding, easy bruising, swollen glands, others Endocrine: denies: excessive hunger, excessive sweating, excessive thirst, excessive urination, flushing, intolerance to cold, intolerance to heat, unexplained weight gain, unexplained weight loss, others Psychiatric: denies: anxiety, bipolar disorder, depression, hopeless, panic disorder, schizophrenia, sleepless, suicidal, others All Other Systems: Reviewed and Negative Physical Exam General Appearance: Moderate Distress, Normal HEENT: Normal ENT Inspection, Pharynx Normal, TMs Normal Neck: Full Range of Motion, Non-Tender, Normal, Normal Inspection Respiratory: Chest Non-Tender, Lungs Clear, No Accessory Muscle Use, No Respiratory Distress, Normal Breath Sounds Cardiovascular: Bradycardia, No Edema, No JVD, No Murmur, No Gallop, Normal Peripheral Pulses Breast Exam: Deferred Gastrointestinal: No Organomegaly, Non Tender, No Pulsatile Mass, Normal Bowel Sounds, Soft Genitalia: Deferred Pelvic: Deferred Rectal: Deferred Extremities: No calf tenderness, Normal capillary refill, Normal inspection, Normal range of motion, Non-tender, No pedal edema Musculoskeletal : Apperance: Normal Neurologic: Alert, local superintendent II-XII nml as Tested, No Motor Deficits, Normal Affect, Normal Mood, No Sensory Deficits Cerebellar Function: NOT DONE Reflexes: NOT DONE Skin: Dry, Normal Color, Warm Peripheral Pulses: 3+ Radial (R), 3+ Radial (L) Lymphatic: No Adenopathy Was a procedure done? Was a procedure done?: No Differential Dx Considerations may include: Bradycardia X-Ray, Labs, Meds, VS Vital Signs Date Time Temp Pulse Resp B/P (MAP) Pulse Ox O2 Delivery O2 Flow Rate FiO2 05/14/25 12:15 82/30 05/14/25 12:09 77/25 05/14/25 11:48 135/58 05/14/25 11:13 33 05/14/25 10:48 33 100 Room Air* 0 21 05/14/25 10:48 97.8 32 13 151/61 (91) 100 97.8 05/14/25 10:43 33 05/14/25 10:38 97.8 33 18 157/62 99 97.8 Lab Test 05/14/25 12:04 05/14/25 11:40 Range/Units POC Glucose 156 H 70-106 mg/dl White Blood Count 7.8 4.4-10.8 10^3/uL Red Blood Count 4.38 L 4.5-5.90 10^6/uL Hemoglobin 11.5 L 13.5-17.5 g/dL Hematocrit 35.3 L 41.0-53.0 % Mean Corpuscular Volume 80.5 80.0-100.0 fL Mean Corpuscular Hemoglobin 26.2 L 28.0-32.0 pg Mean Corpuscular Hemoglobin Concent 32.5 32.0-36.0 g/dL Red Cell Distribution Width 17.2 H 11.8-14.3 % Platelet Count 320 140-450 10^3/uL Mean Platelet Volume 9.4 6.9-10.8 fL Neutrophils (%) (Auto) 68.9 37.0-80.0 % Lymphocytes (%) (Auto) 18.4 10.0-50.0 % Monocytes (%) (Auto) 9.2 0.0-12.0 % Eosinophils (%) (Auto) 2.3 0.0-7.0 % Basophils (%) (Auto) 1.2 0.0-2.0 % Neutrophils # (Auto) 5.4 1.6-8.6 10 ^3/uL Lymphocytes # (Auto) 1.4 0.4-5.4 10 ^3/uL Monocytes # (Auto) 0.7 0-1.3 10 ^3/uL Eosinophils # (Auto) 0.2 0-0.8 10 ^3/uL Basophils # (Auto) 0.1 0-0.2 10 ^3/uL Nucleated Red Blood Cells 0.0 % Sodium Level 138 136-145 mmol/L Potassium Level 4.7 3.5-5.1 mmol/L Chloride Level 106 98-107 mmol/L Carbon Dioxide Level 22 20-31 mmol/L Anion Gap 10 5-15 Blood Urea Nitrogen 28 H 9-23 mg/dL Creatinine 1.43 H 0.700-1.30 mg/dL Glomerular Filtration Rate Calc 50 >90 mL/min BUN/Creatinine Ratio 19.6 10.0-20.0 Serum Glucose 157 H 74-106 mg/dL Calcium Level 9.7 8.7-10.4 mg/dL Troponin I High Sensitivity 12 </=54 ng/L Current Medications Medications (Trade) Dose Ordered Sig/Simona Route Start Time Stop Time Status Last Admin Glucagon (Glucagen) 1 mg ONCE ONCE IV 05/14/25 11:15 05/14/25 11:16 DC 05/14/25 11:19 Dopamine HCl/ Dextrose 250 ml @ 14.25 mls/ hr [id number] ONCE IV 05/14/25 11:15 05/15/25 04:47 05/14/25 11:48 Ondansetron HCl (Zofran) 4 mg ONCE ONCE IV 05/14/25 11:30 05/14/25 11:31 DC 05/14/25 11:33 Acetaminophen/ Hydrocodone Bitart ([place] 10/325MG Tab) 1 tab ONCE ONCE PO 05/14/25 11:45 05/14/25 11:46 DC 05/14/25 11:44 Patient alert. Answering questions. Bradycardic. Came from [facility]. Saturation pristine on room air. EKG does show bradycardia. Was given glucagon. Started dopamine. Unstable for transfer. Explained to the patient. Continue monitoring. [facility] approved inpatient admission [id number]. [place] [address] Ph: [phone] DIAGNOSTIC IMAGING Diagnostic Imaging Report : [id number] Signed PATIENT: SOFÍA QUIÑONEZ ACCT: [id number] UNIT: [id number] : 1945 LOC: ER ROOM / BED: / AGE / SEX: 79 / M ADM STATUS: REG ER SERVICE [id number] ORDERING PHYSICIAN: WERO BROWER MD PROCEDURE(s): CXRP - CHEST PORTABLE REASON: sob ORDER NUMBER(s): [id number], ACCESSION NUMBER(s): [id number] CLINICAL HISTORY: sob TECHNIQUE: Single view of the chest was obtained. COMPARISON: XY CHEST PORTABLE on DOS: 04/21/24, XY CHEST TWO VIEWS ROUTINE on DOS: 11/09/23, XY CHEST PORTABLE on DOS: 10/17/23, XY CHEST TWO VIEWS ROUTINE on DOS: 05/25/23 FINDINGS: The heart size is mildly enlarged and pulmonary vasculature appears normal. There are patchy right basilar opacities. IMPRESSION: Patchy right basilar opacities, likely atelectasis and/or infection. ATED BY: GARRET SALAMANCA MD DICTATED DATE/TIME: 05/14/251205 SIGNED BY: GARRET SALAMANCA MD SIGNED DATE/TIME: 05/14/25 120 CC: Time of 1ST Reevaluation: : Reevaluation 1ST: Unchanged Patient Education/Counseling: Diagnosis, Treatment, Prognosis Family Education/Counseling: No Family Present SEPSIS Sepsis Screen Date sepsis recognized/suspect: May 14, 2025 Time Sepsis recognized/suspect: 1038 Recent Procedure: No On Antibiotic Therapy: No Respiratory Rate >20: No Heart Rate >90: No Temp<36 C (96.8 F) or >38.3 C: No SBP <90 or MAP <65 mmHG: No New Acute Mental Status Change: No Is the patient on CPAP, BIPAP,: No Physician Orders Dopamine 1600mcg/Ml D5w (05/14/25 11:15) Hand I Cutter (05/14/25 ) Chest Portable (05/14/25 11:28) Vital Signs Date Time Temp Pulse Resp B/P (MAP) Pulse Ox O2 Delivery O2 Flow Rate FiO2 05/14/25 12:15 82/30 05/14/25 12:09 77/25 05/14/25 11:48 135/58 05/14/25 11:13 33 05/14/25 10:48 33 100 Room Air* 0 21 05/14/25 10:48 97.8 32 13 151/61 (91) 100 97.8 05/14/25 10:43 33 05/14/25 10:38 97.8 33 18 157/62 99 97.8 Laboratory Tests Test 05/14/25 11:40 White Blood Count 7.8 10^3/uL (4.4-10.8) Medications Medications Dose Ordered Sig/Simona Route Start Time Stop Time Status Last Admin Dose Admin Acetaminophen/ Hydrocodone Bitart 1 tab ONCE ONCE PO 05/14/25 11:45 05/14/25 11:46 DC 05/14/25 11:44 Dopamine HCl/ Dextrose 250 ml @ 14.25 mls/ hr [id number] ONCE IV 05/14/25 11:15 05/15/25 04:47 05/14/25 11:48 Glucagon 1 mg ONCE ONCE IV 05/14/25 11:15 05/14/25 11:16 DC 05/14/25 11:19 Ondansetron HCl 4 mg ONCE ONCE IV 05/14/25 11:30 05/14/25 11:31 DC 05/14/25 11:33 Departure 1 Departure Time of Disposition: 11:30 Impression: Primary Impression: Bradycardia Disposition: ADMITTED INPATIENT Admit to: Med Surg Condition: Guarded Critical Care Note Critical Care Time?: Yes (90 min-critical care time only) Stability Stability form required: No Heart Score Heart Score: Heart Score Response (Comments) Value History Slightly Suspicious 0 EKG Normal 0 Age >65 2 Risk Factors >3 or Hx ASHD 2 Troponin Normal limit 0 Total 4 I personally scribed for WERO BROWER MD ([email or web address]) on 05/14/25 at 11:06. Electronically submitted by Krissy Wright ([email or web address]). I personally scribed for WERO BROWER MD ([email or web address]) on 05/14/25 at 12:30. Electronically submitted by Krissy Wright ([email or web address]). WERO BROWER MD May 14, 2025 11:06
[2025-05-14] MEDS: GLUCAGON EMERG KIT 1mg/1ml IV ONE ×2 (11:19→13:54)
[2025-05-14] MEDS: ONDANSETRON HCL 4 MG/2 ML VIAL IV ONE ×2 (11:33→13:59)
[2025-05-14] MEDS: ONDANSETRON HCL 4 MG/2 ML VIAL ONE ×2 (11:34→14:04)
[2025-05-14] MEDS: HYDROcodone-ACET 10/325MG TAB PO ONE (11:44)
[2025-05-14] MEDS: DOPamine 1600MCG/ML D5W 250 ML IV ONE (11:48)
--- NOTE | 2025-05-14 12:09 | DVH ---
CLINICAL HISTORY: sob TECHNIQUE: Single view of the chest was obtained. COMPARISON: XY CHEST PORTABLE on DOS: 04/21/24, XY CHEST TWO VIEWS ROUTINE on DOS: 11/09/23, XY CHEST PORTABLE on DOS: 10/17/23, XY CHEST TWO VIEWS ROUTINE on DOS: 05/25/23 FINDINGS: The heart size is mildly enlarged and pulmonary vasculature appears normal. There are patchy right basilar opacities. IMPRESSION: Patchy right basilar opacities, likely atelectasis and/or infection.
--- NOTE | 2025-05-14 12:13 | ECG ---
[facility] Test Date: 2025-05-14 Test Time: 10:43:18 Pat Name: SOFÍA QUIÑONEZ Department: ED Room: [address] [place] [address] Gender: M [employer]: RAJ : 1945 Requested By: WERO BROWER Order Number: [id number] Reading MD: Brigido Mariano Measurements Intervals [place] Rate: 33 P: 0 IA: 0 QRS: 143 QRSD: 142 T: -8 QT: 682 QTc: 506 Interpretive Statements Junctional rhythm Right bundle branch block Probable anteroseptal infarct, old Baseline wander in lead(s) II,III,aVF Electronically Signed On 05-14-2025 15:09:52 PST by Brigido Mariaon Please click the below link to view image of tracing.
[2025-05-14 12:15] LABS: Hematocrit 35.3 % (41.0-53.0); Hemoglobin 11.5 g/dL (13.5-17.5); Mean Corpuscular Hemoglobin 26.2 pg (28.0-32.0); Mean Corpuscular Volume 80.5 fL (80.0-100.0); Nucleated Red Blood Cells % 0.0 %
[2025-05-14 12:18] LABS: Chloride 106 mmol/L (98-107); Potassium 4.7 mmol/L (3.5-5.1); Sodium 138 mmol/L (136-145)
[2025-05-14 12:19] LABS: Anion Gap 10 (5-15); Calcium 9.7 mg/dL (8.7-10.4); Carbon Dioxide 22 mmol/L (20-31)
[2025-05-14 12:24] LABS: BUN/Creatinine Ratio 19.6 (10.0-20.0)
[2025-05-14 12:28] LABS: Blood Urea Nitrogen 28 mg/dL (9-23); Glucose 157 mg/dL (74-106)
[2025-05-14] MEDS ORDERED: ACETAMINOPHEN 325 MG TAB PO PRN (13:30)
[2025-05-14] MEDS ORDERED: MORPHINE SULFATE INJ 2 MG/ml SYRG IV ONE (13:45)
[2025-05-14] MEDS ORDERED: ONDANSETRON HCL 4 MG/2 ML VIAL IV PRN (14:00)
[2025-05-14] MEDS: MORPHINE SULFATE 4 MG/ML SYR/VIAL IV ONE (14:19)
[2025-05-14] MEDS: HYDROcodone-ACET 5/325MG TAB PO ONE (14:32)
[2025-05-14] MEDS: ENOXAPARIN SOD 80 MG/0.8ML SYRINGE SC SCH (14:33)
--- NOTE | 2025-05-14 14:43 | DVHHP2 ---
History of Present Illness History of Present Illness This is a 79-year-old male with past medical history of prostate cancer, CKD, diabetes, hyperlipidemia, and hypertension. He presented after being found bradycardic during a visit to his PCP at [facility]. His heart rate was noted to be 33, and EMS was called. On arrival to the ED, his BP was 159/62. According to the patient, he occasionally experiences dizziness when standing and has had prior episodes of loss of consciousness, though he does not recall the details. The initial EKG showed a junctional rhythm, but after cardiology reevaluation in the ED, the rhythm was determined to be a ventricular escape rhythm. The patients home medication list included both metoprolol and propranolol, along with Xarelto (last dose taken last night). It was suspected that beta- blockade contributed to the severe bradycardia. He was started on dopamine infusion at 14 mcg/kg/min for chronotropic support. Glucagon 5 mg was given for beta-soledad reversal. Cardiology assessed the patient and recommended transvenous pacemaker placement, followed by a permanent pacemaker once anticoagulation washes out. He is currently being transported to the labeling associate. Past Medical History: Prostate cancer sp radiation Chronic kidney disease (Cr 1.43, GFR 50) Diabetes mellitus Hypertension Hyperlipidemia Home Medications: Aspirin, Jardiance, Fluticasone, Gabapentin, Lisinopril, Megestrol, Metformin, Metoprolol, Propranolol, Xarelto Social History: Lives at home. No alcohol or drug use reported. Review of Systems Allergies: Coded Allergies: Metronidazole (Verified Allergy, Unknown, 11/07/24) Medications Current Medications Medications Dose Ordered Sig/Simona Route Start Time Stop Time Status Last Admin Dose Admin Acetaminophen 650 mg Q6HP PRN PO 05/14/25 13:30 Enoxaparin Sodium 80 mg Q12HR SC 05/14/25 13:51 05/14/25 14:33 80 MG Ondansetron HCl 4 mg Q4HPRN PRN IV 05/14/25 14:00 Exam Vital Signs Vital Signs Date Time Temp Pulse Resp B/P (MAP) Pulse Ox O2 Delivery O2 Flow Rate FiO2 05/14/25 14:01 31 12 118/48 (71) 98 05/14/25 10:48 Room Air* 0 21 05/14/25 10:48 97.8 97.8 Exam General: Alert, cooperative, no acute distress. Vital Signs: HR 33 on arrival; BP 159/62 later hypotension ; afebrile; oxygenation stable. HEENT: No scleral icterus. Neck: No JVD. CV: Bradycardic, regular ventricular escape rhythm, no murmurs appreciated. Lungs: Clear to auscultation bilaterally. Abdomen: Soft, non-distended, non-tender. Extremities: No edema. Neuro: Oriented, no focal deficits. Skin: Warm, dry. Labs/Xrays Labs Test 05/14/25 12:04 05/14/25 11:40 Range/Units POC Glucose 156 H 70-106 mg/dl White Blood Count 7.8 4.4-10.8 10^3/uL Red Blood Count 4.38 L 4.5-5.90 10^6/uL Hemoglobin 11.5 L 13.5-17.5 g/dL Hematocrit 35.3 L 41.0-53.0 % Mean Corpuscular Volume 80.5 80.0-100.0 fL Mean Corpuscular Hemoglobin 26.2 L 28.0-32.0 pg Mean Corpuscular Hemoglobin Concent 32.5 32.0-36.0 g/dL Red Cell Distribution Width 17.2 H 11.8-14.3 % Platelet Count 320 140-450 10^3/uL Mean Platelet Volume 9.4 6.9-10.8 fL Neutrophils (%) (Auto) 68.9 37.0-80.0 % Lymphocytes (%) (Auto) 18.4 10.0-50.0 % Monocytes (%) (Auto) 9.2 0.0-12.0 % Eosinophils (%) (Auto) 2.3 0.0-7.0 % Basophils (%) (Auto) 1.2 0.0-2.0 % Neutrophils # (Auto) 5.4 1.6-8.6 10 ^3/uL Lymphocytes # (Auto) 1.4 0.4-5.4 10 ^3/uL Monocytes # (Auto) 0.7 0-1.3 10 ^3/uL Eosinophils # (Auto) 0.2 0-0.8 10 ^3/uL Basophils # (Auto) 0.1 0-0.2 10 ^3/uL Nucleated Red Blood Cells 0.0 % Sodium Level 138 136-145 mmol/L Potassium Level 4.7 3.5-5.1 mmol/L Chloride Level 106 98-107 mmol/L Carbon Dioxide Level 22 20-31 mmol/L Anion Gap 10 5-15 Blood Urea Nitrogen 28 H 9-23 mg/dL Creatinine 1.43 H 0.700-1.30 mg/dL Glomerular Filtration Rate Calc 50 >90 mL/min BUN/Creatinine Ratio 19.6 10.0-20.0 Serum Glucose 157 H 74-106 mg/dL Calcium Level 9.7 8.7-10.4 mg/dL Troponin I High Sensitivity 12 </=54 ng/L SEPSIS Sepsis Screen Date sepsis recognized/suspect: May 14, 2025 Time Sepsis recognized/suspect: 1047 Recent Procedure: Yes On Antibiotic Therapy: No Respiratory Rate >20: No Heart Rate >90: No Temp<36 C (96.8 F) or >38.3 C: No SBP <90 or MAP <65 mmHG: No New Acute Mental Status Change: No Is the patient on CPAP, BIPAP,: No Physician Orders Dopamine 1600mcg/Ml D5w (05/14/25 11:15) Solar Mechanical Engineer (05/14/25 ) Chest Portable (05/14/25 11:28) Admit (05/14/25 13:21) Code Status (05/14/25 13:21) Vital Signs .PER UNIT PROTOCOL (05/14/25 13:21) Review Orders With Adm.Md (05/14/25 13:21) Maintain Bed Rest (05/14/25 13:21) Npo (Nothing By Mouth) Diet (05/14/25 Lunch) Acetaminophen Tablet (Tylenol Tablet) (05/14/25 13:30) Notify Md Of Changes From Base (05/14/25 13:21) Advance Directive (05/14/25 13:21) Patient Condition (05/14/25 13:21) Allergies (05/14/25 13:21) Drug Screen (05/14/25 13:21) Oxygen By Nasal Cannula (05/14/25 13:21) Stat Ekg For Chest Pain (05/14/25 13:21) Notify Md Of Changes From Base (05/14/25 13:21) Rail Express Clerk For 24 Hours (05/14/25 13:21) Emergency Dysrhythmia Protocol (05/14/25 13:21) Rhythm Strips Once Every Shift (05/14/25 13:21) * Cardiology Consult (05/14/25 13:21) Enoxaparin Sodium (Lovenox) (05/14/25 13:51) Ondansetron Hcl (Zofran) (05/14/25 14:00) Vital Signs Date Time Temp Pulse Resp B/P (MAP) Pulse Ox O2 Delivery O2 Flow Rate FiO2 05/14/25 14:01 31 12 118/48 (71) 98 05/14/25 12:42 33 14 96/29 (51) 93 05/14/25 12:20 83/30 05/14/25 12:15 82/30 05/14/25 12:09 77/25 05/14/25 11:48 135/58 05/14/25 11:13 33 05/14/25 10:48 33 100 Room Air* 0 21 05/14/25 10:48 97.8 32 13 151/61 (91) 100 97.8 05/14/25 10:43 33 05/14/25 10:38 97.8 33 18 157/62 99 97.8 Laboratory Tests Test 05/14/25 11:40 White Blood Count 7.8 10^3/uL (4.4-10.8) Medications Medications Dose Ordered Sig/Simona Route Start Time Stop Time Status Last Admin Dose Admin Acetaminophen/ Hydrocodone Bitart 1 tab ONCE ONCE PO 05/14/25 11:45 05/14/25 11:46 DC 05/14/25 11:44 1 TAB Acetaminophen/ Hydrocodone Bitart 1 tab ONCE ONCE PO 05/14/25 14:15 05/14/25 14:18 DC 05/14/25 14:32 1 TAB Dopamine HCl/ Dextrose 250 ml @ 14.25 mls/ hr [id number] ONCE IV 05/14/25 11:15 05/15/25 04:47 05/14/25 11:48 14.25 MLS/HR Enoxaparin Sodium 80 mg Q12HR SC 05/14/25 13:51 05/14/25 14:33 80 MG Glucagon 1 mg ONCE ONCE IV 05/14/25 11:15 05/14/25 11:16 DC 05/14/25 11:19 1 MG Glucagon 4 mg ONCE ONCE IV 05/14/25 13:30 05/14/25 13:31 DC 05/14/25 13:54 4 MG Ondansetron HCl 4 mg ONCE ONCE IV 05/14/25 11:30 05/14/25 11:31 DC 05/14/25 11:33 4 MG Ondansetron HCl 4 mg ONCE ONCE IV 05/14/25 14:15 05/14/25 14:16 DC 05/14/25 13:59 4 MG Assessment/Plan Assessment/Plan A 79-year-old male with PMHx prostate cancer, CKD (GFR 50), diabetes, hypertension, hyperlipidemia, presenting with profound bradycardia due to ventricular escape rhythm, likely worsened by beta-soledad use. Requires transvenous pacemaker and later permanent pacemaker after anticoagulation washout. #Ventricular Escape Rhythm / Severe Bradycardia #Paroxysmal atrial fibrillation Initially junctional rhythm; later ideoventricular rhythm Home metoprolol and propranolol likely major contributors. Continue dopamine infusion until paced. Proceed with transvenous pacing in labeling associate now. Hold metoprolol and propranolol. Glucagon 5 mg given for beta-soledad reversal. Hold Xarelto, allow washout before PPM placement. Enoxaparin only; confirm with cardiology to restart it #CKD Stage 3a (Cr 1.43, GFR 50) #Hypertension Avoid nephrotoxic meds. Hold lisinopril temporarily until hemodynamics stable. Monitor BMP daily. #Diabetes Plan: Hold Jardiance and metformin. Per hospital course start ISS Disposition ICUlevel of care while on vasoactive support and awaiting pacing. Case discussed with Dr Car Plan discussed with: Patient, Other (rn) My Orders Orders - BEULAH HILL RESIDENT Procedure Category Date Status Time Admit ADMIT 05/14/25 Transmitted 13:21 Code Status CODE 05/14/25 Transmitted 13:21 Vital Signs [facility] 05/14/25 In Process 13:21 Review Orders With TRACY 05/14/25 In Process Adm. 13:21 Maintain Bed Rest [facility] 05/14/25 In Process 13:21 Npo (Nothing By DIET 05/14/25 Transmitted Mouth) Diet Lunch Acetaminophen Tablet PHA 05/14/25 In Process (Tylenol Tablet) 13:30 Notify Md Of Changes [facility] 05/14/25 In Process From Base 13:21 Advance Directive [facility] 05/14/25 In Process 13:21 Patient Condition ORDERS 05/14/25 Transmitted 13:21 Allergies [facility] 05/14/25 In Process 13:21 Drug Screen LAB 05/14/25 Logged 13:21 Oxygen By Nasal RT 12/2/25 Transmitted Cannula 13:21 Stat Ekg For Chest [facility] 05/14/25 In Process Pain 13:21 Notify Md Of Changes [facility] 05/14/25 In Process From Base 13:21 Rail Express Clerk For [facility] 05/14/25 In Process 24 Hours 13:21 Emergency Dysrhythmia [facility] 05/14/25 In Process Protocol 13:21 Rhythm Strips Once [facility] 05/14/25 In Process Every Shift 13:21 * Cardiology Consult CONS 05/14/25 Transmitted 13:21 Enoxaparin Sodium PHA 05/14/25 In Process (Lovenox) 13:51 Ondansetron Hcl PHA 05/14/25 In Process (Zofran) 14:00 Date of Service: May 14, 2025 Billing Provider: TIFFANY CAR MD Common Visit Codes: [id number] INP/OBS CARE (HIGH) BEULAH HILL RESIDENT May 14, 2025 14:43
--- NOTE | 2025-05-14 14:48 | DVHINCON2 ---
RAMANDEEP MCLEAN [facility] 05/14/25 1448: Date Seen: May 14, 2025 Referring Physician MD Reynaldo Reason for Consultation Profound bradycardia History of Present Illness This is a pleasant 79-year-old man who presented to the emergency room via EMS with a chief complaint of profound bradycardia. Per patient, he attended a regular visit with his PCP at a local [facility] where he was found to be with profound bradycardia for which he underwent a 12-lead electrocardiogram revealing an idioventricular rhythm with an associated right bundle branch block and a heart rate in the 30s bpm with SBP in the 150s mmHg. At that time, the patient denied any symptoms including chest pain, SOB, dizziness, lightheadedness, or syncopal events and was transported to the emergency room. Upon arrival to the emergency room he underwent a subsequent 12 lead electrocardiogram revealing a junctional rhythm in the 30s bpm. He was me dicated with glucagon IV and placed on a dopamine drip for hemodynamic support. At time of assessment, the patient was found with a what appears to be an idioventricular rhythm at 30 bpm with an associated blood pressure of 90s/20s mmHg and the patient now complaining of generalized weakness. Per patient, he has a history of unspecified atrial fibrillation with propranolol 20 mg b.i.d. therapy initiated by PCP recently. Home medications also included metoprolol tartrate 50 mg b.i.d. The patient is unsure if he is taking both beta-blockers. Last Xarelto 15 mg intake was last night. Significant medical history includes unspecified atrial fibrillation on Xarelto therapy, unspecified congestive heart failure, hypertension, dyslipidemia, [id number]-ghpwyfnbe diabetes mellitus, obstructive sleep apnea, history of prostate cancer with radiation status post prostatectomy, hiatal hernia, chronic back pain status post implanted neurostimulator, opiate use disorder, nephrolithiasis, GERD, and PTSD. Past Medical History Past medical history reviewed. No other significant than mentioned above. Past Surgical History Prostatectomy Back surgeries x7 Spinal stimulator implant Vasectomy Colon polypectomy Family History: Arthritis G8 MOTHER, Onset:50's - 60 Family History Family history reviewed. Social History Denies the use of illicit drugs, alcohol, or tobacco use. Allergies: Coded Allergies: Metronidazole (Verified Allergy, Unknown, 11/07/24) Home Meds Active Scripts Pantoprazole Sodium Sesquihydr (Protonix) 40 Mg Tab, 40 MG PO DAILY, #30 TAB Prov:BAVEJA,DAKOTA MD 01/06/24 Spironolactone (Aldactone) 25 Mg Tab, 25 MG PO DAILY for 90 Days, #90 TAB Prov:IVONE GRAF RESIDENT 10/20/23 Empagliflozin (Jardiance) 10 Mg Tab, 10 MG PO DAILY for 90 Days, #90 TAB Prov:IVONE GRAF RESIDENT 10/20/23 Reported Medications Hydrochlorothiazide (Hydrochlorothiazide) 25 Mg Tab, 1 TAB PO DAILY 01/05/24 Megestrol Acetate (Megace) 20 Mg Tb, 1 TAB PO BID 01/05/24 Pantoprazole Sodium Sesquihydr (Pantoprazole Sodium) 40 Mg Tab, 1 TAB PO BID 10/17/23 Hydrocodone-Acetaminophen (Hydrocodone/Acetaminophen 10-325 mg) 1 Tab Tab, 1 TAB PO QID PRN 10/17/23 Fluticasone Propionate (Fluticasone Propionate) 0.05 % Cre, 50 MCG COLEMAN BID for 30 Days, MCG both nostrils 09/17/22 Cholecalciferol (Vitamin D-3) 5,000 Unit Cap, 5000 UNIT PO DAILY, CAP 09/17/22 Aspirin (Aspir-Low) 81 Mg Tab, 81 MG PO DAILY for 30 Days, MG 09/17/22 Potassium Chloride (POTASSIUM CHLORIDE CR) 10 Meq Tb, 10 MEQ PO TID, TAB 09/17/22 Lisinopril (Lisinopril) 40 Mg Tab, 1 TAB PO DAILY 09/16/22 Metoprolol Tartrate (LOPRESSOR TABLET) 50 Mg Tb, 1 TAB PO BID 09/16/22 Metformin Hydrochloride (Metformin Hcl) 500 Mg Tab, 1 TAB PO BID 09/16/22 Gabapentin (Gabapentin) 800 Mg Tab, 1 TAB PO TID 09/16/22 Rosuvastatin Calcium (Rosuvastatin Calcium) 40 Mg Tab, 1 TAB PO DAILY 09/16/22 Home Meds Home medications reviewed. Current Medications Current Medications Medications (Trade) Dose Ordered Sig/Simona Route PRN Reason Start Time Stop Time Status Last Admin Acetaminophen (Tylenol Tablet) 650 mg Q6HP PRN PO PAIN SCALE 1-3 OR TEMP>100.4 05/14/25 13:30 Enoxaparin Sodium (Lovenox) 80 mg Q12HR SC 05/14/25 13:51 05/14/25 14:33 Ondansetron HCl (Zofran) 4 mg Q4HPRN PRN IV NAUSEA / VOMITING 05/14/25 14:00 Review of Systems Constitutional: Generalized weakness Ears, Nose, & Throat: No symptom reported Eyes: No symptom reported Neurological: No symptoms reported Pulmonary/Respiratory: No symptom reported Cardiovascular: No symptom reported Gastrointestinal: No symptom reported Genitourinary: No symptom reported Musculoskeletal: No symptom reported Skin: No symptom reported Psychiatric: No symptom reported Endocrine: No symptom reported Hemotologic/Lymphatic: No symptom reported Vital Signs Vital Signs Date Time Temp Pulse Resp B/P (MAP) Pulse Ox O2 Delivery O2 Flow Rate FiO2 05/14/25 14:01 31 12 118/48 (71) 98 05/14/25 10:48 Room Air* 0 21 05/14/25 10:48 97.8 97.8 Physical Exam General Appearance: Cooperative. Appears lethargic. Well nourished. In no acute distress Head Exam: Normal inspection Neck Exam: Normal inspection. Non-tender. Normal alignment Pulmonary/Respiratory: Chest non-tender. Diminished R>L bilateral breath sounds Cardiovascular/Chest: Regular rate and rhythm. S1, S2. idioventricular rhythm at 30 bpm. No murmurs. No JVD. Peripheral Pulses: 2+ Radial (R). 2+ Radial (L). 2+ Pedal (R). 2+ Pedal (L) Abdominal Exam: Normal bowel sounds Ankle Exam: Negative ankle edema Lower extremities: Negative lower extremity edema Neuro/Mental Status: A&O x4. Coherent Thoughts/Psych: Normal thought pattern. Appropriate mood and affect. Good judgement and insight Appearance: In no acute distress Skin Exam: Normal inspection. Pale color. Warm. Dry Labs/Diagnostic Data Labs Test 05/14/25 12:04 05/14/25 11:40 Range/Units POC Glucose 156 H 70-106 mg/dl White Blood Count 7.8 4.4-10.8 10^3/uL Red Blood Count 4.38 L 4.5-5.90 10^6/uL Hemoglobin 11.5 L 13.5-17.5 g/dL Hematocrit 35.3 L 41.0-53.0 % Mean Corpuscular Volume 80.5 80.0-100.0 fL Mean Corpuscular Hemoglobin 26.2 L 28.0-32.0 pg Mean Corpuscular Hemoglobin Concent 32.5 32.0-36.0 g/dL Red Cell Distribution Width 17.2 H 11.8-14.3 % Platelet Count 320 140-450 10^3/uL Mean Platelet Volume 9.4 6.9-10.8 fL Neutrophils (%) (Auto) 68.9 37.0-80.0 % Lymphocytes (%) (Auto) 18.4 10.0-50.0 % Monocytes (%) (Auto) 9.2 0.0-12.0 % Eosinophils (%) (Auto) 2.3 0.0-7.0 % Basophils (%) (Auto) 1.2 0.0-2.0 % Neutrophils # (Auto) 5.4 1.6-8.6 10 ^3/uL Lymphocytes # (Auto) 1.4 0.4-5.4 10 ^3/uL Monocytes # (Auto) 0.7 0-1.3 10 ^3/uL Eosinophils # (Auto) 0.2 0-0.8 10 ^3/uL Basophils # (Auto) 0.1 0-0.2 10 ^3/uL Nucleated Red Blood Cells 0.0 % Sodium Level 138 136-145 mmol/L Potassium Level 4.7 3.5-5.1 mmol/L Chloride Level 106 98-107 mmol/L Carbon Dioxide Level 22 20-31 mmol/L Anion Gap 10 5-15 Blood Urea Nitrogen 28 H 9-23 mg/dL Creatinine 1.43 H 0.700-1.30 mg/dL Glomerular Filtration Rate Calc 50 >90 mL/min BUN/Creatinine Ratio 19.6 10.0-20.0 Serum Glucose 157 H 74-106 mg/dL Calcium Level 9.7 8.7-10.4 mg/dL Troponin I High Sensitivity 12 </=54 ng/L Assessment Sick sinus syndrome with profound bradycardia Unspecified atrial fibrillation with slow ventricular rate (on Xarelto/Propanolol/?metoprolol) Chronic compensated HFpEF Dwf-aqzkvpa-gtsrbaxcd diabetes mellitus Presence of implanted neurostimulator Chronic back pain with opioid dependence Dyslipidemia Plan/Recommendation (Dr. Singh) Patient seen and examined by Dr. Singh. Given profound bradycardia with ass ociated acute hypotension and hemodynamic instability, the patient has been scheduled for an urgent temporary transvenous pacemaker implantation. In the meantime, continue with dopamine drip titrate as necessary for a HR > 50 bpm and MAP >60 mmHg. Avoid AV oscar blocking agents. Hold DOAC therapy and/or antiplatelet therapy and only continue therapeutic Lovenox SC for the time b eing. The patient may be a candidate for an eventual permanent pacemaker implantation. We will continue to monitor closely. Notify hemodynamic changes accordingly. Further orders per clinical course. Thank you for allowing us to participate in this patient's care. Please call if you have any questions or concerns. Critical care time: 50 minutes. This medical document was created using an electronic medical record system with voice recognition software and computerized dictation system. Although this document has been carefully reviewed, there might still be some phonetic and typographical errors. Occasional wrong-word or ``sound-alike substitutions may have occurred due to the inherent limitations of voice recognition software. These areas are purely typographical due to imperfections of the software programs and do not reflect any compromise in the patient's medical care. Please read the chart carefully and recognize, using context, where these substitutions have occurred. Plan discussed with: Patient, Other NYHA Physical activity limitations: NA Date of Service: May 14, 2025 Billing Provider: RAMANDEEP MCLEAN [facility] Cardiology Common Codes: [id number] CARE 30-74 MIN DEREK SINGH MD 05/14/251928: Date Seen: May 14, 2025 Referring Physician Addendum note; Patient was seen and examined in the emergency department. Plan was formulated with Ms. Alexus Mclean cardiology FURNITURE ASSEMBLER AND INSTALLER as above. Patient is a 79-year-old gentleman with history of atrial fibrillation on chronic anticoagulation with Xarelto who was sent to the ED after being found to be significantly bradycardic and in junctional versus idioventricular rhythm. In the ED patient was started on dopamine for hemodynamic support. Nonetheless he continued to be bradycardic with heart rate in the 30s at which point patient is complaining of generalized fatigue and he seems pale. Plan was made to take the patient for temporary transvenous pacer wire placement. We will give beta soledad time to wash out however most likely patient will require PPM given he will likely need beta-soledad for his atrial fibrillation. Hold Xarelto in anticipation of possible requirement for PPM. Start anticoagulation with heparin drip or Lovenox in the meantime. Derek Singh MD ,M.Sc. Interventional and Structural cardiology Family History: Arthritis G8 MOTHER, Onset:50's - 60 Allergies: Coded Allergies: Metronidazole (Verified Allergy, Unknown, 11/07/24) Home Meds Active Scripts Pantoprazole Sodium Sesquihydr (Protonix) 40 Mg Tab, 40 MG PO DAILY, #30 TAB Prov:DAKOTA TATUM MD 01/06/24 Spironolactone (Aldactone) 25 Mg Tab, 25 MG PO DAILY for 90 Days, #90 TAB Prov:IVONE GRAF RESIDENT 10/20/23 Empagliflozin (Jardiance) 10 Mg Tab, 10 MG PO DAILY for 90 Days, #90 TAB Prov:IVONE GRAF RESIDENT 10/20/23 Reported Medications Hydrochlorothiazide (Hydrochlorothiazide) 25 Mg Tab, 1 TAB PO DAILY 01/05/24 Megestrol Acetate (Megace) 20 Mg Tb, 1 TAB PO BID 01/05/24 Pantoprazole Sodium Sesquihydr (Pantoprazole Sodium) 40 Mg Tab, 1 TAB PO BID 10/17/23 Hydrocodone-Acetaminophen (Hydrocodone/Acetaminophen 10-325 mg) 1 Tab Tab, 1 TAB PO QID PRN 10/17/23 Fluticasone Propionate (Fluticasone Propionate) 0.05 % Cre, 50 MCG COLEMAN BID for 30 Days, MCG both nostrils 09/17/22 Cholecalciferol (Vitamin D-3) 5,000 Unit Cap, 5000 UNIT PO DAILY, CAP 09/17/22 Aspirin (Aspir-Low) 81 Mg Tab, 81 MG PO DAILY for 30 Days, MG 09/17/22 Potassium Chloride (POTASSIUM CHLORIDE CR) 10 Meq Tb, 10 MEQ PO TID, TAB 09/17/22 Lisinopril (Lisinopril) 40 Mg Tab, 1 TAB PO DAILY 09/16/22 Metoprolol Tartrate (LOPRESSOR TABLET) 50 Mg Tb, 1 TAB PO BID 09/16/22 Metformin Hydrochloride (Metformin Hcl) 500 Mg Tab, 1 TAB PO BID 09/16/22 Gabapentin (Gabapentin) 800 Mg Tab, 1 TAB PO TID 09/16/22 Rosuvastatin Calcium (Rosuvastatin Calcium) 40 Mg Tab, 1 TAB PO DAILY 09/16/22 RAMANDEEP MCLEAN May 14, 2025 14:48 DEREK SINGH MD May 14, 2025 19:29
[2025-05-14 15:13] LABS: Triglycerides 125 mg/dL (< 150)
[2025-05-14 15:15] LABS: Cholesterol 95 mg/dL (< 200)
[2025-05-14 15:16] LABS: HDL Cholesterol 35 mg/dL (40-59); INR 1.19 (0.9-1.15); Partial Thromboplastin Time 30.3 SEC (24.5-34.5); Prothrombin Time 12.4 sec (9.3-11.8)
[2025-05-14] MEDS: fentaNYL CITRATE 100 MCG/2 ML VL ONE (15:34)
[2025-05-14] MEDS: MIDAZOLAM HCL 2MG/2ML 2ml VIAL (1mg/ml) ONE (15:34)
--- NOTE | 2025-05-14 16:07 | DVHOP2 ---
Operative Report - 2 Report Details Date: 05/14/25 Preop Diagnosis: Sinus bradycardia with junctional rhythm Postop Diagnosis: Same Surgeon: Yana Singh MD Anesthesiologist: Local anesthetics Anesthesia: Local Consent: The patient was informed of the risks and benefits of the procedure. These include but are not limited to complications of anesthesia, postoperative infection, incomplete relief of symptoms, recurrence of symptoms, damage to blood vessels, nerves and tendons, deep venous thrombosis, pulmonary embolism and possible need for repeat surgery in the future. Complications: Non apparent Estimated Blood Loss: 2 mL Findings: s/p temporary venous pacer insertion Indications for Surgery: Significant bradycardia lead junctional rhythm and subsequent hypotension requiring pressors in the setting of beta-soledad use (patient reports he has been taking metoprolol and propranolol both) Name of Procedure Performed Temporary transvenous pacer insertion wire right femoral vein Procedure Details Procedure Details: Informed consent was obtained. Patient was brought to cardiac catheterization lab. He was prepped and draped in a sterile fashion. Under ultrasound guidance 1% lidocaine was injected over the area of right femoral vein. Next under ultrasound guidance right femoral vein was accessed using a cook needle and 035 wire was advanced into the right femoral vein under fluoroscopic guidance. Next a six Cambodian femoral catheter was placed in the right femoral vein. Next five Cambodian temporary venous pacer was inserted into the RFV and under fluoroscopic guidance advanced into RV. Pacer was tested a different occurrence. It was said at pacing rate of 60 beats per minute and five milliampere. Summary: - Successful insertion of five Cambodian EDP wire right femoral vein with pacing rate at 60 beats per minute at five milliamps appears - Femoral sheath was secured in place wire sutures Recommendations: - Patient takes anticoagulation (rivaroxaban) last dose the night before admission for atrial fibrillation - Hold Xarelto mildly inpatient in case patient would require permanent pacemaker placement - Start either heparin drip or Lovenox therapeutic level for nonvalvular atrial fibrillation Condition Stable Disposition Still a Patient Date of Service: May 14, 2025 Billing Provider: YANA SINGH MD Cardiology Common Codes: [id number] CARE 30-74 MIN Card. Pacer Implants/Gen [id number] TTVPM/PACER YANA SINGH MD May 14, 2025 16:07
[2025-05-14] MEDS ORDERED: HYDROcodone-ACET 5/325MG TAB PO PRN (16:45)
--- NOTE | 2025-05-14 16:59 | DVHSR ---
APPROVED REPORT EXAM: Two-dimensional and M-mode echocardiogram with Doppler and color Doppler. Blood Pressure: 96/29 mmHg INDICATION Bradycardia RISK FACTORS Height: 5'8", Weight: 167 DIMENSIONS LVDd 5.0 (3.8-5.7cm) LA (2D) 4.3 (1.9-4.0cm) Aortic Root 3.9 (2.0-3.7cm) LVDs 2.8 (2.5-4.0cm) LA (MM) (1.9-4.0cm) Aortic Cusp Exc 1.9 (1.5-2.0cm) EF (%) 75.0 (55-70%) Rt. Atrium 4.6 (1.9-4.0cm) Asc. Aorta cm IVSd 1.2 (0.7-1.1cm) RV (D) (1.8-2.4cm) PWd 1.4 (0.7-1.1cm) Mitral Valve Mitral Mitral Stenosis E/A ratio 0.0 2D MVA cm2 Aortic Valve Aortic Valve Aortic Stenosis V1 2.00m/s AO Mean GR. 8mmHg V2 2.16m/s AO Peak GR. 19mmHg LVOT Diameter 2.2 (1.8-2.4cm) Doppler NICHOLAS 3.52cm2 Pulmonic Valve V2 1.38m/s Tricuspid Valve TR Velocity 3.50m/s RVSP 57mmHg Other Information Quality : Rhythm : Bradycardia Conclusion Left ventricle: The cavity size is normal. Wall thickness is the upper limits of normal. Calculated ejection fraction 75%. Normal diastolic function. Right ventricle : Systolic function is normal. Estimated RVSP 57 mm Hg. There is left atrial enlargement. There is right atrial enlargement. Aortic valve: Trileaflet aortic valve. No aortic stenosis or aortic regurgitation Mitral valve: There is no mitral stenosis. There is trace mitral regurgitation. Tricuspid valve: There is moderate tricuspid regurgitation. Pulmonary valve: There is mild pulmonic regurgitation. Pericardium: There is no pericardial effusion. Inferior vena cava: The vessel is normal in size. There is normal respiratory phasic variation.
[2025-05-14] MEDS: HYDROcodone-ACET 7.5/325MG TAB PO PRN (17:26)
--- NOTE | 2025-05-14 18:12 | DVH ---
INDICATION: s/p pacemaker TECHNIQUE: Frontal view of the chest. COMPARISON: XY CHEST PORTABLE on DOS: 05/14/25, XY CHEST PORTABLE on DOS: 04/21/24, XY CHEST PORTABLE on DOS: 10/17/23 FINDINGS/IMPRESSION: Interval placement of pacemaker with lead extending from below the diaphragm and projecting over the left ventricle. Spinal stimulator leads are noted. There is lucency within the left lower thorax, which likely reflects a skin fold, though a repeat examination may be obtained with improved positioning to exclude pneumothorax. Unchanged cardiomediastinal silhouette. No pleural effusion. Unchanged osseous structures.
[2025-05-14 18:19] LABS: Phencyclidine Screen, Urine Neg (NEGATIVE)
[2025-05-14 18:20] LABS: Barbiturate Scree,Urine Neg (NEGATIVE); Opiate Scree,Urine Pos (NEGATIVE)
[2025-05-14 18:21] LABS: Amphetamine Screen, Urine Neg (NEGATIVE); Benzodiazephine Screen, Urine Neg (NEGATIVE); Cannabinoid Screen, Urine Neg (NEGATIVE); Cocaine Screen, Urine Neg (NEGATIVE)
[2025-05-14] MEDS ORDERED: DEXTROSE (50%) 50ML SYRG IV PRN (18:30)
[2025-05-15] VITALS (84 sets, daily range): BP systolic 103–138; BP diastolic 51–67; PULSE 54–60; RESP 9–21; TEMP 97.9–99.4; O2SAT 89–99
[2025-05-15] MEDS: ACCU-CHEK COMFORT CURVE STRIP VI SCH
[2025-05-15] MEDS: InsuLIN REG 1unit/0.01ml Soln (100units/ml) SC SCH
[2025-05-15 04:03] LABS: Hemoglobin 10.5 g/dL (13.5-17.5); Nucleated Red Blood Cells % 0.1 %
[2025-05-15 04:05] LABS: Hematocrit 32.5 % (41.0-53.0); Mean Corpuscular Hemoglobin 26.1 pg (28.0-32.0); Mean Corpuscular Volume 80.6 fL (80.0-100.0)
[2025-05-15 04:21] LABS: Alanine Aminotransferase 18 U/L (7-40); Alkaline Phosphatase 93 U/L (46-116); Anion Gap 13 (5-15); Calcium 9.9 mg/dL (8.7-10.4); Carbon Dioxide 21 mmol/L (20-31); Chloride 105 mmol/L (98-107); Potassium 4.8 mmol/L (3.5-5.1); Sodium 139 mmol/L (136-145)
[2025-05-15 04:22] LABS: BUN/Creatinine Ratio 20.4 (10.0-20.0); Glucose 76 mg/dL (74-106); Total Protein 6.2 g/dL (5.7-8.2)
[2025-05-15 04:24] LABS: Albumin 3.9 g/dL (3.2-4.8); Bilirubin, Total 0.4 mg/dL (0.2-1.0)
[2025-05-15 04:26] LABS: Blood Urea Nitrogen 32 mg/dL (9-23)
--- NOTE | 2025-05-15 05:11 | DVH ---
CHEST RADIOGRAPH Indication: TV pacer Technique: Single frontal view of the chest was obtained COMPARISON: XY CHEST PORTABLE on DOS: 05/14/25, XY CHEST PORTABLE on DOS: 05/14/25, XY CHEST PORTABLE on DOS: 04/21/24, XY CHEST TWO VIEWS ROUTINE on DOS: 11/09/23, XY CHEST PORTABLE on DOS: 10/17/23 FINDINGS: Lines and Tubes: None Lungs: Clear Pleura: No effusion. No pneumothorax. Cardiomediastinal contours: Unremarkable Bones: Unremarkable IMPRESSION: 1. No acute disease.
[2025-05-15] MEDS: ENOXAPARIN SOD 80 MG/0.8ML SYRINGE SC SCH (09:44)
--- NOTE | 2025-05-15 13:42 | DVHPNRES ---
Progress Note Date Seen: May 15, 2025 Resident Creating Document: DEL LO RESIDENT Medical Necessity Reason Pt with a Central, PICC or Fol: Yes The following are medically ne: Denton Catheter Subjective Review of Systems Mr. Hendrix is a 79 year old male with PMHx of prostate cancer s/p prostatectomy and radiation in 2009, CKD, Atrial Fibrillation on Xarelto, diabetes mellitus, hypertension, chronic back pain, and dyslipidemia, who presented to [facility] via EMS due to bradycardia. The patient was at a routine physical with his PCP at a local [place] clinic when he was found to have HR in the 30s, 12-lead electrocardiogram revealing an idioventricular rhythm with an associated right bundle branch block and a heart rate in the 30s bpm., for which 911 was called and he was transferred to the emergency department. On evaluation in the ED, the patient was afebrile, HR 33 bpm, originally hypertensive then slightly hypotensive. 12 lead electrocardiogram revealing a junctional rhythm in the 30s bpm. Initial labs significant for normocytic hypochromic anemia, elevated creatinine of 1.43, and BUN of 28. PT of 12.4, INR 1.19, and UDS positive fo opiates. Initial chest xray shows patchy right basilar opacities, however this does not appear on follow up xray. On evaluation, it was found that the patient was on both metoprolol tartrate 50 mg BID and propranolol 20 mg BID. Glucagon was given and dopamine for vasopressor support and was admitted on ICU status. He was evaluated by cardiology who recommended transvenous pacemaker placement, followed by permanent pacemaker once anticoagulation washes out. He was taken to the veterinary laboratory diagnostician and transvenous pacemaker was placed in the right femoral region with a set rate of 60 bpm. On initial evaluation in the ICU, the patient is well. States he began to have dizziness upon standing and some shortness of breath approximately six months ago, around the time he was prescribed propranolol. At this time, refers only back pain associated to chronic back problems, denies dizziness, generalized weakness, shortness of breath, palpitations, and chest pain. He states he began to feel dizziness upon standing approximately 6 months ago. He is afebrile, HR 60 (rhythm set by pacer), with MAP within normal range. CBC is stable, renal function is slightly worsened. Patient is pending further evaluation by cardiology for permanent pacemaker placement. Prior medical history: Prostate cancer, CKD, Atrial fibrillation, hypertension, diabetes mellitus, dyslipidemia, chronic back pain Prior surgical history: Prostatectomy, hiatal hernia repair, spinal stimulator implant placement, vasectomy, colon polypectomy Allergies: Per record, patient is allergic to metronizadole, however patient denies Social history: Refers previous tobacco, marijuana, methamphetamine, and heavy alcohol use, with cessatiton approximately 37 years ago Home medications: Aspirin, jardiancem fluticasone, metformin, Xarelto Objective vital signs Vital Sign Date Time Temp Pulse Resp B/P (MAP) Pulse Ox O2 Delivery O2 Flow Rate FiO2 05/15/25 12:15 60 9 117/57 (77) 94 05/15/25 12:00 Room Air* 0 21 05/15/25 08:00 99.2 99.2 Total Intake and Output 05/14/25 05/14/25 05/15/25 15:00 23:00 07:00 Intake Total 400 ml Output Total 375 ml 450 ml Balance -375 ml -50 ml medications Current Medications Medications Dose Ordered Sig/Simona Route Start Time Stop Time Status Last Admin Dose Admin Acetaminophen 650 mg Q6HP PRN PO 05/14/25 13:30 Ondansetron HCl 4 mg Q4HPRN PRN IV 05/14/25 14:00 Enoxaparin Sodium 80 mg Q12HR SC 05/15/25 10:00 05/15/25 09:44 80 MG Acetaminophen/ Hydrocodone Bitart 1 tab Q6HPRN PRN PO 05/14/25 16:45 Cancel Acetaminophen/ Hydrocodone Bitart 1 tab Q6HP PRN PO 05/14/25 17:15 05/15/25 12:35 1 TAB Diagnostic Test (Pha) 1 strip Q6HR 05/15/25 00:00 05/15/25 12:21 1 STRIP Insulin Human Regular Q6HR SC 05/15/25 00:00 Dextrose 50 ml UD PRN IV 05/14/25 18:30 Examination General: Alert, AOx4, follows commands HEENT: Normocephalic, atraumatic, pupils are reactive, pale conjunctive, moist mucous membranes Respiratory/pulmonary: Bilateral chest expansion, no pain on palpation of chest wall, clear lungs bilaterally, vesicular murmur without crackles or wheezing Cardiovascular: Paced rhythm Abdomen: Abdomen nondistended, non-distended, normal bowel sounds, soft, no pain on palpation to any abdominal quadrants : Denton present draining dark brown urine Extremities: No deformities, no peripheral edema, pulses are palpable, presence of pacer in right groin region Peripheral pulses: 2+ radial (R), 2+ radial (L), 2+ Dorsalis pedis (R), 2 + Dorsalis pedis (L) Skin: No rashes or pruritus Neurological: Alert, AOx4, no focal deficits noted laboratory and microbiology Laboratory Tests 05/15/25 02:56 Test 05/15/25 02:56 Range/Units Serum Glucose 76 74-106 mg/dL Problem List/Assessment/Plan Problem List/Assessment/Plan Assessment and Plan: Neurology # Alert Cardiovascular # Possible Sick Sinus Syndrome with bradycardia - Dopamine infusion discontinued - Cardiology is on board, patient is candidate for permanent pacemaker - S/p Temporary transvenous pacemaker implantation 05/14/2025 - Avoid AV oscar blocking agents - Metoprolol and propranolol discontinued at this time - Glucagon 5 mg given once for beta soledad reversal # Paroxysmal Atrial fibrillation - [id number]: 4 - On Xarelto, discontinued due to possible pending pacemaker - Lovenox therapeutic dose # Chronic Systolic and Diastolic Heart Failure, not exacerbated (per records) - Echocardiogram 05/15/2025: Left ventricle: The cavity size is normal. Wall thickness is the upper limits of normal. Calculated ejection fraction 75%. Normal diastolic function. Right ventricle : Systolic function is normal. Estimated RVSP 57 mm Hg. There is left atrial enlargement. There is right atrial enlargement. Aortic valve: Trileaflet aortic valve. No aortic stenosis or aortic regurgitation Mitral valve: There is no mitral stenosis. There is trace mitral regurgitation. Tricuspid valve: There is moderate tricuspid regurgitation. Pulmonary valve: There is mild pulmonic regurgitation. Pericardium: There is no pericardial effusion. Inferior vena cava: The vessel is normal in size. There is normal respiratory phasic variation. - Hold Spironolactone until blood pressure is more controlled # Hypertension - Monitor - Lisinopril was discontinued due to low blood pressure # Dyslipidemia Respiratory # Pneumonia, ruled out - Ceftriaxone discontinued GI # Peptic ulcer prophylaxis -Pantoprazole 40 mg IV daily # History of hiatal hernia # Denton catheter draining brown urine - UA pending #History of Prostate cancer in 2009 - S/p Prostatectomy - S/p Prostate radiation Possible Complicated UTI - Ceftriaxone 1 mg IV daily - Urine culture ordered Nephrology #CKD stage 3a - Avoid nephrotoxic drugs - Monitor BMP - Urine protein/ creatinine ordered - Urine sodium # Rhabdomyolisis ruled out - CK: 27 Hem/onc #Normocytic hypochromic anemia - Monitor H and H Endocrine #Type 2 Diabetes Mellitus - Hold Jardiance and Metformin - SSI - Accu-cheks MSK # Chronic back pain - Lyons 7.5 mg/ 325 mg PO q 6 hours - Morphine 1 mg IV q 6 hrs PRN DVT prophylaxis - Lovenox therapeutic dose due to AFib PUD prophylaxis: - Protonix 40 mg IV daily Lines - Denton catheter : 05/14/2025 - R peripheral line: 05/14/2025 Drips during mech ventilation - Dopamine discontinued Nutrition: - Cardiac diet Critical care time 62 minutes excluding procedure. Code status discussed greater than 20 minutes: Full CODE STATUS. His , Susan, was contacted via telephone for updates Plan discussed with Dr. Baron Plan discussed with: Patient, Spouse, Other (Nurse) My Orders My Orders Orders - DEL LO RESIDENT Procedure Category Date Status Time Urinalysis LAB 05/15/25 Logged 10:40 Creatine Kinase LAB 05/15/25 In Process 13:32 Dietary Evaluation Review Comments: Nutrition Recommendation: 1) CCHO 75gm + cardiac diet 2) Glucerna 240ml TID 3) Monitor PO intake, lab values, weight trend, and I/O Expected Outcomes/Goals: Intake to meet >75% estimated needs FU 3-5 days Visit Coding STANDARD RES Billing Provider: JELANI BARON MD Date of Service if different f: May 15, 2025 DEL LO RESIDENT May 15, 2025 13:42
[2025-05-15] MEDS: MORPHINE SULFATE 4 MG/ML SYR/VIAL IV PRN (14:36)
--- NOTE | 2025-05-15 14:37 | DVHPN2 ---
Consult Progress Note Subjective Other Systems: Patient remains in V paced rhythm at 60 bpm with transvenous pacemaker in place Objective vital signs Vital Sign Date Time Temp Pulse Resp B/P (MAP) Pulse Ox O2 Delivery O2 Flow Rate FiO2 05/15/25 14:00 15 97 Room Air* 0 21 05/15/25 14:00 60 05/15/25 13:45 137/53 (81) 05/15/25 13:15 99.4 99.4 Total Intake and Output 05/14/25 05/14/25 05/15/25 15:00 23:00 07:00 Intake Total 400 ml Output Total 375 ml 450 ml Balance -375 ml -50 ml medications Current Medications Medications Dose Ordered Sig/Simona Route Start Time Stop Time Status Last Admin Dose Admin Acetaminophen 650 mg Q6HP PRN PO 05/14/25 13:30 Ondansetron HCl 4 mg Q4HPRN PRN IV 05/14/25 14:00 Enoxaparin Sodium 80 mg Q12HR SC 05/15/25 10:00 05/15/25 09:44 80 MG Acetaminophen/ Hydrocodone Bitart 1 tab Q6HPRN PRN PO 05/14/25 16:45 Cancel Acetaminophen/ Hydrocodone Bitart 1 tab Q6HP PRN PO 05/14/25 17:15 05/15/25 12:35 1 TAB Diagnostic Test (Pha) 1 strip Q6HR 05/15/25 00:00 05/15/25 12:21 1 STRIP Insulin Human Regular Q6HR SC 05/15/25 00:00 Dextrose 50 ml UD PRN IV 05/14/25 18:30 Morphine Sulfate 1 mg Q4HPRN PRN IV 05/15/25 14:45 Examination: GENERAL:Normal, LUNGS:Normal, CVS:Abnormal (V paced at 60 beats per minute with transvenous pacemaker in place), NEURO:Normal laboratory and microbiology Laboratory Tests 05/15/25 02:56 Test 05/15/25 02:56 Range/Units Serum Glucose 76 74-106 mg/dL Problem List/Assessment/Plan Problem List/Assessment/Plan Sick sinus syndrome with profound bradycardia Unspecified atrial fibrillation with slow ventricular rate (on Xarelto/Propanolol/?metoprolol) Chronic compensated HFpEF Moderate tricuspid valve regurgitation Kwg-jnvuqze-zjvlwawme diabetes mellitus Presence of implanted neurostimulator Chronic back pain with opioid dependence Dyslipidemia Plan/Recommendations (Dr. Mariano) Case reviewed and discussed with . Transthoracic echocardiogram reveals an EF of 75% with normal diastolic function. Given profound bradycardia with associated acute hypotension and hemodynamic instability, the patient underwent a temporary transvenous pacemaker implantation. At the time of assessment, the patient remains in AV paced rhythm at 60 beats per minute, MA 5. Given that the patient continues to be paced at set rate, the patient we will need a permanent pacemaker implantation. Given that the patient takes Xarelto therapy at home and last dose was on 05/13/2025, we will plan for permanent pacemaker implantation on 05/17/2025. In the meantime, Avoid AV oscar blocking agents. Hold DOAC therapy and/or antiplatelet therapy and only continue therapeutic Lovenox SC for the time being in anticipation of permanent pacemaker implantation. We will continue to monitor closely. Notify hemodynamic changes accordingly. Further orders per clinical course. Thank you for allowing us to participate in this patient's care. Please call if you have any questions or concerns. Critical care time: 38 minutes. This medical document was created using an electronic medical record system with voice recognition software and computerized dictation system. Although this document has been carefully reviewed, there might still be some phonetic and typographical errors. Occasional wrong-word or ``sound-alike substitutions may have occurred due to the inherent limitations of voice recognition software. These areas are purely typographical due to imperfections of the software programs and do not reflect any compromise in the patient's medical care. Please read the chart carefully and recognize, using context, where these substitutions have occurred. Plan discussed with: Patient, Spouse, Other (Bedside RN) Dietary Evaluation Review Comments: Nutrition Recommendation: 1) CCHO 75gm + cardiac diet 2) Glucerna 240ml TID 3) Monitor PO intake, lab values, weight trend, and I/O Expected Outcomes/Goals: Intake to meet >75% estimated needs FU 3-5 days Date of Service: May 15, 2025 Billing Provider: LILIAM BOLDEN Common Visit Codes: [id number] CARE 30-74 MIN LILIAM BOLDEN May 15, 2025 14:37
[2025-05-15 15:01] LABS: Urine Protein, UAD 1+ (Negative); Urine WBC Clumps PRESENT /hpf (None Seen)
[2025-05-15] MEDS: PANTOPRAZOLE 40 MG/10 ML VIAL INJ IV ONE (16:02)
[2025-05-15 16:33] LABS: Protein, Urine 170.1 mg/dL (1-14)
[2025-05-16] VITALS (45 sets, daily range): BP systolic 104–148; BP diastolic 55–72; PULSE 54–60; RESP 9–20; TEMP 98.2–99.4; O2SAT 90–99
[2025-05-16 04:24] LABS: Anion Gap 10 (5-15); Calcium 9.1 mg/dL (8.7-10.4); Carbon Dioxide 21 mmol/L (20-31); Potassium 4.4 mmol/L (3.5-5.1); Sodium 138 mmol/L (136-145)
[2025-05-16 04:27] LABS: Hematocrit 31.4 % (41.0-53.0); Hemoglobin 10.8 g/dL (13.5-17.5); Mean Corpuscular Hemoglobin 28.1 pg (28.0-32.0); Mean Corpuscular Volume 81.7 fL (80.0-100.0); Nucleated Red Blood Cells % 0.1 %
[2025-05-16 04:30] LABS: BUN/Creatinine Ratio 20.0 (10.0-20.0); Glucose 103 mg/dL (74-106)
[2025-05-16 04:31] LABS: Magnesium 2.0 mg/dL (1.6-2.6)
[2025-05-16 04:34] LABS: Blood Urea Nitrogen 26 mg/dL (9-23); Chloride 107 mmol/L (98-107)
--- NOTE | 2025-05-16 05:55 | DVH ---
CHEST RADIOGRAPH Indication: TRANSVENOUS PACEMAKER POSITIONING Technique: Single frontal view of the chest was obtained COMPARISON: XY CHEST PORTABLE on DOS: 05/15/25, XY CHEST PORTABLE on DOS: 05/14/25, XY CHEST PORTABLE on DOS: 05/14/25, XY CHEST PORTABLE on DOS: 04/21/24, XY CHEST TWO VIEWS ROUTINE on DOS: 11/09/23 FINDINGS: Lines and Tubes: None Lungs: Clear Pleura: No effusion. No pneumothorax. Cardiomediastinal contours: Unremarkable Bones: Unremarkable IMPRESSION: 1. No acute disease.
--- NOTE | 2025-05-16 07:57 | ECG ---
[facility] Test Date: 2025-05-14 Test Time: 16:17:20 Pat Name: SOFÍA QUIÑONEZ Department: Room: [address] [place] [address] A Gender: M Integrity Manager: : 1945 Requested By: BEULAH LO Order Number: [id number] Reading MD: Brigido Mariano Measurements Intervals [place] Rate: 60 P: 0 UT: 0 QRS: -62 QRSD: 164 T: 90 QT: 630 QTc: 630 Interpretive Statements Electronic ventricular pacemaker Electronically Signed On 05-16-2025 11:11:20 PST by Brigido Mariano Please click the below link to view image of tracing.
--- NOTE | 2025-05-16 08:35 | DVHPNRES ---
Progress Note Date Seen: May 16, 2025 Resident Creating Document: DEL LO RESIDENT Medical Necessity Reason Pt with a Central, PICC or Fol: Yes The following are medically ne: [place] Catheter Subjective Review of Systems Mr. Hendrix is a 79 year old male with PMHx of prostate cancer s/p prostatectomy and radiation in 2009, CKD, Atrial Fibrillation on Xarelto, diabetes mellitus, hypertension, chronic back pain, and dyslipidemia, who presented to [facility] via EMS due to bradycardia. The patient was at a routine physical with his PCP at a local [place] clinic when he was found to have HR in the 30s, 12-lead electrocardiogram revealing an idioventricular rhythm with an associated right bundle branch block and a heart rate in the 30s bpm., for which 911 was called and he was transferred to the emergency department. On evaluation in the ED, the patient was afebrile, HR 33 bpm, originally hypertensive then slightly hypotensive. 12 lead electrocardiogram revealing a junctional rhythm in the 30s bpm. Initial labs significant for normocytic hypochromic anemia, elevated creatinine of 1.43, and BUN of 28. PT of 12.4, INR 1.19, and UDS positive fo opiates. Initial chest xray shows patchy right basilar opacities, however this does not appear on follow up xray. On evaluation, it was found that the patient was on both metoprolol tartrate 50 mg BID and propranolol 20 mg BID. Glucagon was given and dopamine for vasopressor support and was admitted on ICU status. He was evaluated by cardiology who recommended transvenous pacemaker placement, followed by permanent pacemaker once anticoagulation washes out. He was taken to the labor economics professor and transvenous pacemaker was placed in the right femoral region with a set rate of 60 bpm. On initial evaluation in the ICU, the patient is well. States he began to have dizziness upon standing and some shortness of breath approximately six months ago, around the time he was prescribed propranolol. At this time, refers only back pain associated to chronic back problems, denies dizziness, generalized weakness, shortness of breath, palpitations, and chest pain. He states he began to feel dizziness upon standing approximately 6 months ago. He was afebrile, HR 60 (rhythm set by pacer), with MAP within normal range. CBC was stable, renal function slightly worsened from admission. Prior medical history: Prostate cancer, CKD, Atrial fibrillation, hypertension, diabetes mellitus, dyslipidemia, chronic back pain Prior surgical history: Prostatectomy, hiatal hernia repair, spinal stimulator implant placement, vasectomy, colon polypectomy Allergies: Per record, patient is allergic to metronizadole, however patient denies Social history: Refers previous tobacco, marijuana, methamphetamine, and heavy alcohol use, with cessatiton approximately 37 years ago Home medications: Aspirin, jardiance, fluticasone, metformin, Xarelto, rosuvastatin, amlodipine, spironolactone, propranolol, metoprolol 05/16/2025: The patient is seen in the ICU. Per nurse, no over night events to report. He is afebrile, heart rate continues to be 60, with MAP within normal range. Labs are stable. Kidney function has improved. Per cardiology, he will go for pacemaker placement tomorrow. Objective vital signs Vital Sign Date Time Temp Pulse Resp B/P (MAP) Pulse Ox O2 Delivery O2 Flow Rate FiO2 05/16/25 06:00 60 05/16/25 06:00 15 95 Room Air* 0 21 05/16/25 05:50 135/65 05/16/25 00:00 98.2 98.2 Total Intake and Output 05/15/25 05/15/25 05/16/25 15:00 23:00 07:00 Intake Total 50 ml 375 ml 250 ml Output Total 250 ml 650 ml Balance 50 ml 125 ml -400 ml medications Current Medications Medications Dose Ordered Sig/Simona Route Start Time Stop Time Status Last Admin Dose Admin Acetaminophen 650 mg Q6HP PRN PO 05/14/25 13:30 Ondansetron HCl 4 mg Q4HPRN PRN IV 05/14/25 14:00 Enoxaparin Sodium 80 mg Q12HR SC 05/15/25 10:00 05/15/25 21:06 80 MG Acetaminophen/ Hydrocodone Bitart 1 tab Q6HPRN PRN PO 05/14/25 16:45 Cancel Acetaminophen/ Hydrocodone Bitart 1 tab Q6HP PRN PO 05/14/25 17:15 05/16/25 07:00 1 TAB Diagnostic Test (Pha) 1 strip Q6HR 05/15/25 00:00 05/16/25 05:36 1 STRIP Insulin Human Regular Q6HR SC 05/15/25 00:00 05/15/25 18:01 2 UNITS Dextrose 50 ml UD PRN IV 05/14/25 18:30 Morphine Sulfate 1 mg Q4HPRN PRN IV 05/15/25 14:45 05/16/25 05:20 1 MG Pantoprazole Sodium 40 mg DAILY IV 05/16/25 10:00 Ceftriaxone Sodium 50 ml @ 100 mls/hr DAILY@09 IV 05/16/25 09:00 Examination General: Alert, AOx4, follows commands HEENT: Normocephalic, atraumatic, pupils are reactive, pale conjunctive, moist mucous membranes Respiratory/pulmonary: Bilateral chest expansion, no pain on palpation of chest wall, clear lungs bilaterally, vesicular murmur without crackles or wheezing Cardiovascular: Paced rhythm Abdomen: Abdomen nondistended, non-distended, normal bowel sounds, soft, no pain on palpation to any abdominal quadrants : [place]enton present draining urine that is still dark but improved from yesterday Extremities: No deformities, no peripheral edema, pulses are palpable, presence of pacer in right groin region Peripheral pulses: 2+ radial (R), 2+ radial (L), 2+ Dorsalis pedis (R), 2 + Dorsalis pedis (L) Skin: No rashes or pruritus Neurological: Alert, AOx4, no focal deficits noted laboratory and microbiology Laboratory Tests 05/16/25 03:20 Test 05/16/25 03:20 Range/Units Serum Glucose 103 74-106 mg/dL Microbiology Date/Time Source Procedure Growth Status 05/14/25 19:05 Nose MRSA Screen - Final Complete Problem List/Assessment/Plan Problem List/Assessment/Plan Assessment and Plan: Neurology # Alert Cardiovascular # Possible Sick Sinus Syndrome with bradycardia - Dopamine infusion discontinued - Cardiology is on board, patient is candidate for permanent pacemaker - S/p Temporary transvenous pacemaker implantation 05/14/2025 - Avoid AV oscar blocking agents - Metoprolol and propranolol discontinued at this time - Glucagon 5 mg given once for beta soledad reversal - Patient will go for pacemaker placement tomorrow # Paroxysmal Atrial fibrillation - [id number]: 4 - Xarelto held before pacemaker placement - Lovenox therapeutic dose, hold tonight's dose # Chronic Systolic and Diastolic Heart Failure, not exacerbated (per records) - Echocardiogram 05/15/2025: Left ventricle: The cavity size is normal. Wall thickness is the upper limits of normal. Calculated ejection fraction 75%. Normal diastolic function. Right ventricle : Systolic function is normal. Estimated RVSP 57 mm Hg. There is left atrial enlargement. There is right atrial enlargement. Aortic valve: Trileaflet aortic valve. No aortic stenosis or aortic regurgitation Mitral valve: There is no mitral stenosis. There is trace mitral regurgitation. Tricuspid valve: There is moderate tricuspid regurgitation. Pulmonary valve: There is mild pulmonic regurgitation. Pericardium: There is no pericardial effusion. Inferior vena cava: The vessel is normal in size. There is normal respiratory phasic variation. - Hold Spironolactone until blood pressure is more controlled # Hypertension - Monitor - Lisinopril was discontinued due to low blood pressure - Amlodipine held # Dyslipidemia Respiratory # Pneumonia, ruled out GI # Peptic ulcer prophylaxis -Pantoprazole 40 mg IV daily # History of hiatal hernia # Denton catheter draining brown urine #History of Prostate cancer in 2009 - S/p Prostatectomy - S/p Prostate radiation Possible Complicated UTI - Ceftriaxone 1 mg IV daily - Urine culture ordered Nephrology #CKD stage 3a - Avoid nephrotoxic drugs - Monitor BMP - Urine protein/ creatinine ordered - Urine sodium # Rhabdomyolisis ruled out - CK: 27 Hem/onc #Normocytic hypochromic anemia - Monitor H and H Endocrine #Type 2 Diabetes Mellitus - Hold Jardiance and Metformin - SSI - Accu-cheks MSK # Chronic back pain - [place] 7.5 mg/ 325 mg PO q 6 hours - Morphine 1 mg IV q 6 hrs PRN - Lidocaine patch DVT prophylaxis - Lovenox therapeutic dose due to AFib PUD prophylaxis: - Protonix 40 mg IV daily Lines - [place]enton catheter : 05/14/2025 - R peripheral line: [facility]14[facility] - Dopamine discontinued Nutrition: - Cardiac diet Critical care time 54 minutes excluding procedure. Code status discussed greater than 20 minutes: Full CODE STATUS. His , Susan, was contacted via telephone for updates Plan discussed with Dr. Viramontes Plan discussed with: Spouse, Other (Nurse) My Orders My Orders Orders - DEL LO Procedure Category Date Status Time Morphine Sulfate PHA 05/15/25 In Process Injection 14:45 Pantoprazole PHA 05/16/25 In Process (Protonix) 10:00 Urine Bacterial ANNALISE 05/15/25 In Process Culture 15:24 Ceftriaxone 1gm/50ml PHA 05/16/25 In Process (Rocephin) 09:00 Chest Portable XY 05/16/25 Resulted 04:00 Dietary Evaluation Review Comments: Nutrition Recommendation: 1) CCHO 75gm + cardiac diet 2) Glucerna 240ml TID 3) Monitor PO intake, lab values, weight trend, and I/O Expected Outcomes/Goals: Intake to meet >75% estimated needs FU 3-5 days Visit Coding STANDARD RES Billing Provider: CORNELIUS VIRAMONTES MD Date of Service if different f: May 16, 2025 Common Visit Codes: 61598-[id number] CARE 30-74 MIN DEL LO RESIDENT May 16, 2025 08:35 CORNELIUS VIRAMONTES MD May 17, 2025 13:21
[2025-05-16] MEDS: PANTOPRAZOLE 40 MG/10 ML VIAL INJ IV SCH (09:26)
[2025-05-16] MEDS: LIDOCAINE 5% TOPICAL PATCH TOP ONE (09:45)
--- NOTE | 2025-05-16 14:01 | DVHPN2 ---
Consult Progress Note Subjective Other Systems: Patient remains V paced at 60 beats per minute with transvenous pacemaker on payroll coordinator Denies any cardiac symptoms at time of assessment Objective vital signs Vital Sign Date Time Temp Pulse Resp B/P (MAP) Pulse Ox O2 Delivery O2 Flow Rate FiO2 05/16/25 13:00 54 16 145/70 (95) 94 05/16/25 12:00 98.4 98.4 05/16/25 12:00 Room Air* 0 21 Total Intake and Output 05/15/25 05/15/25 05/16/25 15:00 23:00 07:00 Intake Total 50 ml 375 ml 250 ml Output Total 250 ml 650 ml Balance 50 ml 125 ml -400 ml medications Current Medications Medications Dose Ordered Sig/Simona Route Start Time Stop Time Status Last Admin Dose Admin Acetaminophen 650 mg Q6HP PRN PO 05/14/25 13:30 Ondansetron HCl 4 mg Q4HPRN PRN IV 05/14/25 14:00 Enoxaparin Sodium 80 mg Q12HR SC 05/15/25 10:00 05/16/25 09:26 80 MG Acetaminophen/ Hydrocodone Bitart 1 tab Q6HPRN PRN PO 05/14/25 16:45 Cancel Acetaminophen/ Hydrocodone Bitart 1 tab Q6HP PRN PO 05/14/25 17:15 05/16/25 12:35 1 TAB Diagnostic Test (Pha) 1 strip Q6HR 05/15/25 00:00 05/16/25 12:21 1 STRIP Insulin Human Regular Q6HR SC 05/15/25 00:00 05/15/25 18:01 2 UNITS Dextrose 50 ml UD PRN IV 05/14/25 18:30 Morphine Sulfate 1 mg Q4HPRN PRN IV 05/15/25 14:45 05/16/25 10:32 1 MG Pantoprazole Sodium 40 mg DAILY IV 05/16/25 10:00 05/16/25 09:26 40 MG Ceftriaxone Sodium 50 ml @ 100 mls/hr DAILY@09 IV 05/16/25 09:00 05/16/25 09:26 100 MLS/HR Examination: GENERAL:Normal, LUNGS:Normal, CVS:Abnormal (V paced on payroll coordinator with transvenous pacemaker), NEURO:Normal laboratory and microbiology Laboratory Tests 05/16/25 03:20 Test 05/16/25 03:20 Range/Units Serum Glucose 103 74-106 mg/dL Problem List/Assessment/Plan Problem List/Assessment/Plan Symptomatic sinus bradycardia with junctional rhythm Paroxysmal atrial fibrillation, Stage 3a (on Xarelto/Propanolol/?metoprolol) Chronic compensated HFpEF Moderate tricuspid valve regurgitation Nqb-ubjsurj-lbldadmcx diabetes mellitus Presence of implanted neurostimulator Chronic back pain with opioid dependence Dyslipidemia Plan/Recommendations (Dr. Mariano) Patient seen and evaluated at bedside with . Transthoracic echocardiogram reveals an EF of 75% with normal diastolic function. Given profound bradycardia with associated acute hypotension and hemodynamic instability, the patient underwent a temporary transvenous pacemaker implantation. At the time of assessment, the patient remains in AV paced rhythm at 60 beats per minute, MA 5. Given that the patient continues to be paced at set rate, the patient we will need a permanent pacemaker implantation. Given that the patient takes Xarelto therapy at home and last dose was on 05/13/2025, we will plan for permanent pacemaker implantation on 05/17/2025. In the meantime, Avoid AV oscar blocking agents. Hold DOAC therapy and/or antiplatelet therapy and only continue therapeutic Lovenox SC for the time being in anticipation of permanent pacemaker implantation. We will continue to monitor closely. Notify hemodynamic changes accordingly. Further orders per clinical course. Thank you for allowing us to participate in this patient's care. Please call if you have any questions or concerns. Critical care time: 38 minutes. This medical document was created using an electronic medical record system with voice recognition software and computerized dictation system. Although this document has been carefully reviewed, there might still be some phonetic and typographical errors. Occasional wrong-word or ``sound-alike substitutions may have occurred due to the inherent limitations of voice recognition software. These areas are purely typographical due to imperfections of the software programs and do not reflect any compromise in the patient's medical care. Please read the chart carefully and recognize, using context, where these substitutions have occurred. Plan discussed with: Patient, Spouse Dietary Evaluation Review Comments: Nutrition Recommendation: 1) CCHO 75gm + cardiac diet 2) Glucerna 240ml TID 3) Monitor PO intake, lab values, weight trend, and I/O Expected Outcomes/Goals: Intake to meet >75% estimated needs FU 3-5 days Date of Service: May 16, 2025 Billing Provider: LILIAM BOLDEN Common Visit Codes: 69435-[id number] CARE 30-74 MIN LILIAM BOLDEN May 16, 2025 14:01
--- NOTE | 2025-05-16 22:22 | DVHPN2 ---
Subjective DOS: 05/16/2025 Patient seen and examined at bedside. Breathing comfortably on room air. Overnight events reviewed. Changes from previous H/P or p: No Changes Objective Vitals Vital Signs Date Time Temp Pulse Resp B/P (MAP) Pulse Ox O2 Delivery O2 Flow Rate FiO2 05/16/25 20:59 60 11 122/63 05/16/25 18:30 96 05/16/25 18:00 Room Air* 0 21 05/16/25 16:00 98.4 98.4 Intake/Output Intake and Output 05/16/25 07:00 Intake Total 675 ml Output Total 900 ml Balance -225 ml Intake Oral 625 ml IV Total 50 ml Output Urine Total 900 ml Exam Gen.: Patient lying in bed in no apparent distress. Breathing on room air. Head: Normocephalic, atraumatic. Eyes: EOMI/PERRLA. Ears: Normal hearing. Normal anatomy. Neck/trachea: Trachea midline, supple. Nose: Normal external anatomy. Mouth: Moist mucous membranes. Chest: Decreased air entry bilaterally. No wheezing or rhonchi. Cardiovascular: Positive S1, positive S2. Regular rate and rhythm. Abdomen: Positive bowel sounds in all 4 quadrants. Soft, non-tender, non- distended. : Deferred. Rectal: Deferred. Skin: Warm, dry. Intact. Extremities: 2+ radial pulses bilaterally. No lower extremity edema. Neuro: Awake, alert, oriented x3. No gross motor or sensory deficits. Cranial nerves II through XII intact. Gait not assessed. Medications Current Medications Medications Dose Ordered Sig/Simona Route Start Time Stop Time Status Last Admin Dose Admin Acetaminophen 650 mg Q6HP PRN PO 05/14/25 13:30 Ondansetron HCl 4 mg Q4HPRN PRN IV 05/14/25 14:00 Enoxaparin Sodium 80 mg Q12HR SC 05/15/25 10:00 05/16/25 20:58 80 MG Acetaminophen/ Hydrocodone Bitart 1 tab Q6HPRN PRN PO 05/14/25 16:45 Cancel Acetaminophen/ Hydrocodone Bitart 1 tab Q6HP PRN PO 05/14/25 17:15 05/16/25 18:31 1 TAB Diagnostic Test (Pha) 1 strip Q6HR 05/15/25 00:00 05/16/25 17:41 1 STRIP Insulin Human Regular Q6HR SC 05/15/25 00:00 05/15/25 18:01 2 UNITS Dextrose 50 ml UD PRN IV 05/14/25 18:30 Morphine Sulfate 1 mg Q4HPRN PRN IV 05/15/25 14:45 05/16/25 20:59 1 MG Pantoprazole Sodium 40 mg DAILY IV 05/16/25 10:00 05/16/25 09:26 40 MG Ceftriaxone Sodium 50 ml @ 100 mls/hr DAILY@09 IV 05/16/25 09:00 05/16/25 09:26 100 MLS/HR Laboratory Results Laboratory Tests 05/16/25 03:20 Chemistry Test 05/16/25 03:20 Calcium Level 9.1 mg/dL (8.7-10.4) Magnesium Level 2.0 mg/dL (1.6-2.6) Urinalysis Test 05/15/25 13:52 Urine Color Dark-brown (Yellow) Urine Clarity Ex.turbid (Clear) Urine pH 5.0 (5.0-9.0) Urine Specific [place] 1.020 (1.001-1.035) Urine Protein 1+ (Negative) H Urine Ketones Negative (Negative) Urine Blood 3+ /uL (Negative) H Urine Nitrite Negative (Negative) Urine Bilirubin Negative (Negative) Urine Urobilinogen Normal mg/dL (Negative) Urine Leukocyte Esterase 1+ /uL (Negative) Urine RBC 1487 /hpf (0 - 3) Urine WBC Clumps Present /hpf (None Seen) Urine Microscopic WBC 204 /HPF (0-3) H Urine Squamous Epithelial Cells None seen /hpf (<5) Urine Bacteria None seen /hpf (None Seen) Urine Mucus Few (None Seen) Urine Creatinine 108.43 mg/dL (30.0-125.0) Urine Protein/Creatinine Ratio 1.57 Urine Sodium 42 mmol/L (40-220) Urine Glucose Normal mg/dL (Normal) Urine Total Protein 170.1 mg/dL (1-14) H Microbiology Microbiology Date/Time Source Procedure Growth Status 05/15/25 13:52 Urine - [place] Urine Culture - Preliminary Resulted 05/14/25 19:05 Nose MRSA Screen - Final Complete Assessment/Plan Assessment/Plan Impression: Possible sick sinus syndrome w/ bradycardia Paroxysmal atrial fibrillation Chronic systolic/diastolic CHF Chronic kidney disease Hx of prostate cancer Anemia Plan: The patient is seen in the ICU. Per nurse, no overnight events to report He is afebrile, heart rate continues to be 60, with MAP within normal range. Labs are stable. Kidney function has improved. Per Cardiology, he will go for pacemaker placement tomorrow Follow up Cardiology recs Supplemental oxygen PRN Titrate to keep O2 sats above 92%. Propranolol + metoprolol on hold. On Lovenox 1 mg/kg q.12 hours On Xarelto for AFib. Empiric antibiotics Pt was noted to have dark-colored urine yesterday, clearing up today. Monitor renal function. Monitor electrolytes. Supplement as necessary. Monitor ins and outs. Denton for strict ins and outs. DVT prophylaxis. Prognosis: Poor given patient's multiple co-morbidities. Condition: Critical Rest of plan per hospitalist and other consultants. A total of 35 minutes of critical care time was spent reviewing the patient record, examining the patient, making a diagnostic and therapeutic plan, discussing this plan with the medical personnel, following up on diagnostic studies and following the patient for clinical stability excluding any and all procedures. At least 50% of this time was spent in direct, [id number] contact. Thank you, Dr. Terry Palacio, for allowing me to participate in this patient's care. Further recommendations will depend on the patient's clinical course. Please do not hesitate to contact me if you have any questions or concerns. This medical document was created using an electronic medical record system with [employer] dictation system. Although these documentations are being carefully reviewed, there may still be some phonetic and typographical changes. The errors are purely typographical, due to imperfection on the software program, and do not reflect any compromise in the patient's medical care. Plan discussed with: Other (RN) Visit Coding Pulmonary Billing Provider: CORNELIUS SULTANA MD Date of Service if different f: May 16, 2025 Common Visit Codes: 98154-[id number] INP/OBS CARE(HIGH), 14241-[id number] CARE 30-74 MIN CORNELIUS SULTANA MD May 16, 2025 22:22
[2025-05-17] VITALS (44 sets, daily range): BP systolic 126–157; BP diastolic 62–86; PULSE 60–70; RESP 8–17; TEMP 97.6–98.5; O2SAT 94–100
[2025-05-17 04:12] LABS: Mean Corpuscular Volume 80.6 fL (80.0-100.0); Nucleated Red Blood Cells % 0.1 %
[2025-05-17 04:14] LABS: Hematocrit 33.1 % (41.0-53.0); Hemoglobin 10.8 g/dL (13.5-17.5); Mean Corpuscular Hemoglobin 26.4 pg (28.0-32.0)
[2025-05-17 04:33] LABS: Anion Gap 9 (5-15); Carbon Dioxide 24 mmol/L (20-31); Chloride 107 mmol/L (98-107); Potassium 4.3 mmol/L (3.5-5.1); Sodium 140 mmol/L (136-145)
[2025-05-17 04:34] LABS: Calcium 9.2 mg/dL (8.7-10.4)
[2025-05-17 04:36] LABS: INR 1.03 (0.9-1.15); Partial Thromboplastin Time 32.6 SEC (24.5-34.5); Prothrombin Time 10.9 sec (9.3-11.8)
[2025-05-17 04:39] LABS: BUN/Creatinine Ratio 20.8 (10.0-20.0); Blood Urea Nitrogen 22 mg/dL (9-23); Magnesium 1.9 mg/dL (1.6-2.6)
[2025-05-17 04:43] LABS: Glucose 110 mg/dL (74-106)
--- NOTE | 2025-05-17 05:50 | DVH ---
CHEST RADIOGRAPH Indication: Eval pacer placement Technique: Single frontal view of the chest was obtained Comparison: XY CHEST PORTABLE on DOS: 05/16/25. FINDINGS: Lines and Tubes: There is an inferior approach pacer with lead overlying the right ventricle. Lungs: No focal consolidation. Pleura: No effusion. No pneumothorax. Cardiomediastinal contours: Unremarkable Bones: No acute osseous abnormality. Neurostimulator projects over the thoracic spine. IMPRESSION: 1. No acute cardiopulmonary disease.
[2025-05-17] MEDS: MAGNESIUM SULFATE 1GM/100ML 100 ML IV ONE (07:45)
[2025-05-17] MEDS: LIDOCAINE 2%HCL (LOCAL ANESTH.) INJ 20ML MDV ONE (12:37)
[2025-05-17] MEDS: fentaNYL CITRATE 100 MCG/2 ML VL ONE ×2 (12:37→20:46)
[2025-05-17] MEDS: IODIXANOL 320MG/ML 100ML BTL IV ONE (12:37)
[2025-05-17] MEDS: MIDAZOLAM HCL 2MG/2ML 2ml VIAL (1mg/ml) ONE ×2 (12:37→20:46)
[2025-05-17] MEDS: VANCOMYCIN HCL 1000 MG VL ONE (12:38)
[2025-05-17] MEDS: VANCOMYCIN 1GM/250ML KIT 250 ML IV ONE (12:38)
--- NOTE | 2025-05-17 14:16 | DVHOP2 ---
Operative Report - 2 Report Details Date: 05/17/25 Preop Diagnosis: High-degree AV block Postop Diagnosis: Successful placement of permanent dual-chamber pacemaker Surgeon: Arnulfo Mariano MD Anesthesiologist: Conscious sedation Anesthesia: Mac, Local Consent: The patient was informed of the risks and benefits of the procedure. These include but are not limited to complications of anesthesia, postoperative infection, incomplete relief of symptoms, recurrence of symptoms, damage to blood vessels, nerves and tendons, deep venous thrombosis, pulmonary embolism and possible need for repeat surgery in the future. Complications: No complications Findings: Complete AV block Indications for Surgery: Complete AV block Name of Procedure Performed Permanent pacemaker implantation Procedure Details Procedure Details: Prior local anesthesia with 2% lidocaine to the left pectoral area patient was prepped and draped in usual fashion an incision made over the left pectoral area with dissection planes with the electrocautery and blunt dissection. A pocket was formed under the left pectoral fascia. Under fluoroscopic guidance we placed a cook needle subsequent to having a venogram. AJ curved guidewire was then inserted. We then placed peel-away sheaths to implant active fixation electrodes into the RV apex and right atrial appendage with adequate capture and sensitivity thresholds. After connecting the generator we sutured the generator and closed the pocket of for flushing with antibiotic solution removing a [employer]Elva antibiotic filled sponge. The pocket was closed with 3-0 Vicryl and the skin was closed with Monocryl. Patient tolerated the procedure well there were no complications. The atrial lead is a ExecOnlineroniLydia S45 serial number [id number]. The ventricular lead is a BiotroniLydia S 53 serial number [id number]. There was a P-wave of 1.4 volts at 0.8 volts 0.4 milliseconds and 566 Ohms of impedance. The ventricular lead had an R-wave of 9.2 volts at 1 volts 0.4 milliseconds and 752 Ohms of impedance. The settings in the right atrial lead at 3 volts 0.4 mA bipolar configuration in both sensing and pacing. Right ventricular lead pulse amplitude at to be volts 0.4 milliseconds bipolar configuration both sensing and pacing. The pacemaker placed he is an AMVIA Edge DRT-T by [employer]. Serial number [id number]. The mode paced was DDD at a lower rate of 60 and an upper rate of 130. Impression: Successful dual-chamber pacemaker placed for high-degree AV block Recommendations continue blood pressure control and risk factor modification. Condition Good Disposition Still a Patient Date of Service: May 17, 2025 Billing Provider: ARNULFO MARIANO Sr., MD Cardiology Common Codes: 76105-QIDSTEO INP/OBS CARE (High) Card. Pacer Implants/Gen [id number] DUAL LEAD PACER ARNULFO MARIANO Sr., MD May 17, 2025 14:16
--- NOTE | 2025-05-17 16:02 | DVH ---
CHEST RADIOGRAPH Indication: post pacemaker Technique: Single frontal view of the chest was obtained Comparison: XY CHEST XRAY 1 VIEW on DOS: 05/17/25, XY CHEST PORTABLE on DOS: 05/16/25, XY CHEST PORTABLE on DOS: 05/15/25 FINDINGS: Lines and Tubes: Interval placement of a bipolar pacemaker in the heart with the pulse generator over the left chest. No pneumothorax on the left. Lungs: No focal consolidation. Pleura: No effusion. No pneumothorax. Cardiomediastinal contours: Unremarkable Bones: No acute osseous abnormality. IMPRESSION: 1. No acute cardiopulmonary disease. 2. Newly placed Dual-chamber pacemaker in place with pulse generator over the left chest.
--- NOTE | 2025-05-17 16:25 | DVHPNRES ---
Progress Note Date Seen: May 17, 2025 Resident Creating Document: DEL LO RESIDENT Medical Necessity Reason Pt with a Central, PICC or Fol: Yes The following are medically ne: [place]enton Catheter Subjective Review of Systems Mr. Hendrix is a 79 year old male with PMHx of prostate cancer s/p prostatectomy and radiation in 2009, CKD, Atrial Fibrillation on Xarelto, diabetes mellitus, hypertension, chronic back pain, and dyslipidemia, who presented to [facility] via EMS due to bradycardia. The patient was at a routine physical with his PCP at a local [place] clinic when he was found to have HR in the 30s, 12-lead electrocardiogram revealing an idioventricular rhythm with an associated right bundle branch block and a heart rate in the 30s bpm., for which 911 was called and he was transferred to the emergency department. On evaluation in the ED, the patient was afebrile, HR 33 bpm, originally hypertensive then slightly hypotensive. 12 lead electrocardiogram revealing a junctional rhythm in the 30s bpm. Initial labs significant for normocytic hypochromic anemia, elevated creatinine of 1.43, and BUN of 28. PT of 12.4, INR 1.19, and UDS positive fo opiates. Initial chest xray shows patchy right basilar opacities, however this does not appear on follow up xray. On evaluation, it was found that the patient was on both metoprolol tartrate 50 mg BID and propranolol 20 mg BID. Glucagon was given and dopamine for vasopressor support and was admitted on ICU status. He was evaluated by cardiology who recommended transvenous pacemaker placement, followed by permanent pacemaker once anticoagulation washes out. He was taken to the tin can laborer and transvenous pacemaker was placed in the right femoral region with a set rate of 60 bpm. On initial evaluation in the ICU, the patient is well. States he began to have dizziness upon standing and some shortness of breath approximately six months ago, around the time he was prescribed propranolol. At this time, refers only back pain associated to chronic back problems, denies dizziness, generalized weakness, shortness of breath, palpitations, and chest pain. He states he began to feel dizziness upon standing approximately 6 months ago. He was afebrile, HR 60 (rhythm set by pacer), with MAP within normal range. CBC was stable, renal function slightly worsened from admission. Prior medical history: Prostate cancer, CKD, Atrial fibrillation, hypertension, diabetes mellitus, dyslipidemia, chronic back pain Prior surgical history: Prostatectomy, hiatal hernia repair, spinal stimulator implant placement, vasectomy, colon polypectomy Allergies: Per record, patient is allergic to metronizadole, however patient denies Social history: Refers previous tobacco, marijuana, methamphetamine, and heavy alcohol use, with cessatiton approximately 37 years ago Home medications: Aspirin, jardiance, fluticasone, metformin, Xarelto, rosuvastatin, amlodipine, spironolactone, propranolol, metoprolol 05/17/2025: The patient is seen in the ICU. Per nurse, no over night events to report. He is afebrile, heart rate continues to be 60, MAP within normal range. Labs are stable. Kidney function continues to improve. The patient went to the tin can laborer today for pacemaker placement. Patient tolerated procedure is now back 8in the CU. Refers he feels tired, denies any pain, nausea, dizziness, palpitations or weakness. 05/16/2025: The patient is seen in the ICU. Per nurse, no over night events to report. He is afebrile, heart rate continues to be 60, with MAP within normal range. Labs are stable. Kidney function has improved. Per cardiology, he will go for pacemaker placement tomorrow. Objective vital signs Vital Sign Date Time Temp Pulse Resp B/P (MAP) Pulse Ox O2 Delivery O2 Flow Rate FiO2 05/17/25 12:30 60 9 98 05/17/25 12:00 97.6 97.6 05/17/25 12:00 Room Air* 0 21 Total Intake and Output 05/16/25 05/16/25 05/17/25 15:00 23:00 07:00 Intake Total 100 ml 400 ml 50 ml Output Total 550 ml 600 ml Balance 100 ml -150 ml -550 ml medications Current Medications Medications Dose Ordered Sig/Simona Route Start Time Stop Time Status Last Admin Dose Admin Acetaminophen 650 mg Q6HP PRN PO 05/14/25 13:30 Ondansetron HCl 4 mg Q4HPRN PRN IV 05/14/25 14:00 Enoxaparin Sodium 80 mg Q12HR SC 05/15/25 10:00 05/16/25 20:58 80 MG Acetaminophen/ Hydrocodone Bitart 1 tab Q6HPRN PRN PO 05/14/25 16:45 Cancel Acetaminophen/ Hydrocodone Bitart 1 tab Q6HP PRN PO 05/14/25 17:15 05/17/25 05:25 1 TAB Diagnostic Test (Pha) 1 strip Q6HR 05/15/25 00:00 05/17/25 05:30 1 STRIP Insulin Human Regular Q6HR SC 05/15/25 00:00 05/15/25 18:01 2 UNITS Dextrose 50 ml UD PRN IV 05/14/25 18:30 Morphine Sulfate 1 mg Q4HPRN PRN IV 05/15/25 14:45 05/17/25 09:11 1 MG Pantoprazole Sodium 40 mg DAILY IV 05/16/25 10:00 05/17/25 09:11 40 MG Ceftriaxone Sodium 50 ml @ 100 mls/hr DAILY@09 IV 05/16/25 09:00 05/17/25 09:10 100 MLS/HR Examination General: Alert, AOx4, follows commands HEENT: Normocephalic, atraumatic, pupils are reactive, pale conjunctive, moist mucous membranes Respiratory/pulmonary: Bilateral chest expansion, no pain on palpation of chest wall, clear lungs bilaterally, vesicular murmur without crackles or wheezing, linear incision observed over left pectoral region, is clean and approximated with bleeding or suppuration Cardiovascular: Paced rhythm Abdomen: Abdomen nondistended, non-distended, normal bowel sounds, soft, no pain on palpation to any abdominal quadrants : Denton present draining urine that is still dark but improved from yesterday Extremities: No deformities, no peripheral edema, pulses are palpable Peripheral pulses: 2+ radial (R), 2+ radial (L), 2+ Dorsalis pedis (R), 2 + Dorsalis pedis (L) Skin: No rashes or pruritus Neurological: Alert, AOx4, no focal deficits noted laboratory and microbiology Laboratory Tests 05/17/25 03:37 Test 05/17/25 03:37 Range/Units Serum Glucose 110 H 74-106 mg/dL Microbiology Date/Time Source Procedure Growth Status 05/15/25 13:52 Urine - [place] Port Urine Culture - Preliminary Resulted 05/14/25 19:05 Nose MRSA Screen - Final Complete Problem List/Assessment/Plan Problem List/Assessment/Plan Assessment and Plan: Neurology # Alert Cardiovascular # Possible Sick Sinus Syndrome with bradycardia - Dopamine infusion discontinued - Cardiology is on board, patient is candidate for permanent pacemaker - S/p Temporary transvenous pacemaker implantation 05/14/2025 - Avoid AV oscar blocking agents - Metoprolol and propranolol discontinued at this time - Glucagon 5 mg given once for beta soledad reversal - S/p pacemaker placement 05/17/2025 # Paroxysmal Atrial fibrillation - [id number]: 4 - Xarelto held before pacemaker placement - Lovenox therapeutic dose # Chronic Systolic and Diastolic Heart Failure, not exacerbated (per records) - Echocardiogram 05/15/2025: Left ventricle: The cavity size is normal. Wall thickness is the upper limits of normal. Calculated ejection fraction 75%. Normal diastolic function. Right ventricle : Systolic function is normal. Estimated RVSP 57 mm Hg. There is left atrial enlargement. There is right atrial enlargement. Aortic valve: Trileaflet aortic valve. No aortic stenosis or aortic regurgitation Mitral valve: There is no mitral stenosis. There is trace mitral regurgitation. Tricuspid valve: There is moderate tricuspid regurgitation. Pulmonary valve: There is mild pulmonic regurgitation. Pericardium: There is no pericardial effusion. Inferior vena cava: The vessel is normal in size. There is normal respiratory phasic variation. - Hold Spironolactone until blood pressure is more controlled # Hypertension - Monitor - Lisinopril was discontinued due to low blood pressure - Amlodipine held # Dyslipidemia Respiratory # Pneumonia, ruled out GI # Peptic ulcer prophylaxis -Pantoprazole 40 mg IV daily # History of hiatal hernia # Denton catheter draining brown urine #History of Prostate cancer in 2009 - S/p Prostatectomy - S/p Prostate radiation Possible Complicated UTI - Ceftriaxone 1 mg IV daily - Urine culture ordered Nephrology #ALMA on CKD stage 3a likely due to VMN, PoA, resolved - Avoid nephrotoxic drugs - Monitor BMP - Urine protein/ creatinine ordered - Urine sodium # Rhabdomyolisis ruled out - CK: 27 Hem/onc #Normocytic hypochromic anemia - Monitor H and H Endocrine #Type 2 Diabetes Mellitus - Hold Jardiance and Metformin - SSI - Accu-cheks MSK # Chronic back pain - [place] 7.5 mg/ 325 mg PO q 6 hours - Morphine 1 mg IV q 6 hrs PRN - Lidocaine patch DVT prophylaxis - Lovenox therapeutic dose due to AFib PUD prophylaxis: - Protonix 40 mg IV daily Lines - Denton catheter : 05/14/2025 - R peripheral line: 05/14/2025 Drips during mech ventilation - Dopamine discontinued Nutrition: - Cardiac diet Critical care time 50 minutes excluding procedure. Code status discussed greater than 20 minutes: Full CODE STATUS. His , Susan, was contacted via telephone for updates Plan discussed with Dr. Viramontes Plan discussed with: Spouse, Other (Nurse (Kyung) ) My Orders My Orders Orders - DEL LO Procedure Category Date Status Time Chest Xray 1 View XY 05/17/25 Resulted 04:00 Dietary Evaluation Review Comments: Nutrition Recommendation: 1) CCHO 75gm + cardiac diet 2) Glucerna 240ml TID 3) Monitor PO intake, lab values, weight trend, and I/O Expected Outcomes/Goals: Intake to meet >75% estimated needs FU 3-5 days Visit Coding STANDARD RES Billing Provider: CORNELIUS VIRAMONTES MD Date of Service if different f: May 17, 2025 Common Visit Codes: [id number] CARE 30-74 MIN DEL LO RESIDENT May 17, 2025 16:25
--- NOTE | 2025-05-17 22:59 | DVHPN2 ---
Subjective DOS: 05/17/2025 Patient seen and examined at bedside. Breathing comfortably on room air. Overnight events reviewed. Changes from previous H/P or p: No Changes Objective Vitals Vital Signs Date Time Temp Pulse Resp B/P (MAP) Pulse Ox O2 Delivery O2 Flow Rate FiO2 05/17/25 18:00 70 05/17/25 18:00 15 98 Room Air* 0 21 05/17/25 18:00 146/84 (104) 05/17/25 16:00 98.5 98.5 Intake/Output Intake and Output 05/17/25 07:00 Intake Total 550 ml Output Total 1150 ml Balance -600 ml Intake Oral 450 ml IV Total 100 ml Output Urine Total 1150 ml Exam Gen.: Patient lying in bed in no apparent distress. Breathing on room air. Head: Normocephalic, atraumatic. Eyes: EOMI/PERRLA. Ears: Normal hearing. Normal anatomy. Neck/trachea: Trachea midline, supple. Nose: Normal external anatomy. Mouth: Moist mucous membranes. Chest: Decreased air entry bilaterally. No wheezing or rhonchi. Cardiovascular: Positive S1, positive S2. Regular rate and rhythm. Abdomen: Positive bowel sounds in all 4 quadrants. Soft, non-tender, non- distended. : Deferred. Rectal: Deferred. Skin: Warm, dry. Intact. Extremities: 2+ radial pulses bilaterally. No lower extremity edema. Neuro: Awake, alert, oriented x3. No gross motor or sensory deficits. Cranial nerves II through XII intact. Gait not assessed. Medications Current Medications Medications Dose Ordered Sig/Simona Route Start Time Stop Time Status Last Admin Dose Admin Acetaminophen 650 mg Q6HP PRN PO 05/14/25 13:30 Ondansetron HCl 4 mg Q4HPRN PRN IV 05/14/25 14:00 Enoxaparin Sodium 80 mg Q12HR SC 05/15/25 10:00 05/16/25 20:58 80 MG Acetaminophen/ Hydrocodone Bitart 1 tab Q6HPRN PRN PO 05/14/25 16:45 Cancel Acetaminophen/ Hydrocodone Bitart 1 tab Q6HP PRN PO 05/14/25 17:15 05/17/25 20:30 1 TAB Diagnostic Test (Pha) 1 strip Q6HR 05/15/25 00:00 05/17/25 18:01 1 STRIP Insulin Human Regular Q6HR SC 05/15/25 00:00 05/15/25 18:01 2 UNITS Dextrose 50 ml UD PRN IV 05/14/25 18:30 Morphine Sulfate 1 mg Q4HPRN PRN IV 05/15/25 14:45 05/17/25 09:11 1 MG Pantoprazole Sodium 40 mg DAILY IV 05/16/25 10:00 05/17/25 09:11 40 MG Ceftriaxone Sodium 50 ml @ 100 mls/hr DAILY@09 IV 05/16/25 09:00 05/17/25 09:10 100 MLS/HR Laboratory Results Laboratory Tests 05/17/25 03:37 Chemistry Test 05/17/25 03:37 Calcium Level 9.2 mg/dL (8.7-10.4) Magnesium Level 1.9 mg/dL (1.6-2.6) Coagulation Test 05/17/25 03:37 Prothrombin Time 10.9 sec (9.3-11.8) Prothrombin Time INR 1.03 (0.9-1.15) Activated Partial Thromboplast Time 32.6 SEC (24.5-34.5) Urinalysis Test 05/15/25 13:52 Urine Color Dark-brown (Yellow) Urine Clarity Ex.turbid (Clear) Urine pH 5.0 (5.0-9.0) Urine Specific [place] 1.020 (1.001-1.035) Urine Protein 1+ (Negative) H Urine Ketones Negative (Negative) Urine Blood 3+ /uL (Negative) H Urine Nitrite Negative (Negative) Urine Bilirubin Negative (Negative) Urine Urobilinogen Normal mg/dL (Negative) Urine Leukocyte Esterase 1+ /uL (Negative) Urine RBC 1487 /hpf (0 - 3) Urine WBC Clumps Present /hpf (None Seen) Urine Microscopic WBC 204 /HPF (0-3) H Urine Squamous Epithelial Cells None seen /hpf (<5) Urine Bacteria None seen /hpf (None Seen) Urine Mucus Few (None Seen) Urine Creatinine 108.43 mg/dL (30.0-125.0) Urine Protein/Creatinine Ratio 1.57 Urine Sodium 42 mmol/L (40-220) Urine Glucose Normal mg/dL (Normal) Urine Total Protein 170.1 mg/dL (1-14) H Microbiology Microbiology Date/Time Source Procedure Growth Status 05/15/25 13:52 Urine - [place] Port Urine Culture - Preliminary Resulted 05/14/25 19:05 Nose MRSA Screen - Final Complete Assessment/Plan Assessment/Plan Impression: 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 Breathing on room air Supplemental oxygen PRN No overnight events. He is afebrile Labs are stable. Kidney function has improved. Pacemaker placement today Cardiology recs appreciated. Patient remains on transvenous pacer. Pain control Avoid oversedation Continue antibiotics Labs and imaging reviewed. Rest of plan as noted below. Plan: Supplemental oxygen PRN Titrate to keep O2 sats above 92%. Propranolol + metoprolol on hold. On Lovenox 1 mg/kg q.12 hours On Xarelto for AFib. Empiric antibiotics Pt was noted to have dark-colored urine on 05/15, clearing up. Monitor renal function. Monitor electrolytes. Supplement as necessary. Monitor ins and outs. Denton for strict ins and outs. DVT prophylaxis. Prognosis: Poor given patient's multiple co-morbidities. Condition: Critical Rest of plan per hospitalist and other consultants. A total of 35 minutes of critical care time was spent reviewing the patient record, examining the patient, making a diagnostic and therapeutic plan, discussing this plan with the medical personnel, following up on diagnostic studies and following the patient for clinical stability excluding any and all procedures. At least 50% of this time was spent in direct, [id number] contact. Thank you, Dr. Terry Palacio, for allowing me to participate in this patient's care. Further recommendations will depend on the patient's clinical course. Please do not hesitate to contact me if you have any questions or concerns. This medical document was created using an electronic medical record system with [employer] dictation system. Although these documentations are being carefully reviewed, there may still be some phonetic and typographical changes. The errors are purely typographical, due to imperfection on the software program, and do not reflect any compromise in the patient's medical care. Plan discussed with: Other (TYLER Vidales) Visit Coding Pulmonary Billing Provider: CORNELIUS SULTANA MD Date of Service if different f: May 17, 2025 Common Visit Codes: [id number] INP/OBS CARE(HIGH), [id number] CARE 30-74 MIN CORNELIUS SULTANA MD May 17, 2025 22:59
[2025-05-18] VITALS (25 sets, daily range): BP systolic 129–170; BP diastolic 63–86; PULSE 70–73; RESP 11–19; TEMP 98.2–99.1; O2SAT 87–100
[2025-05-18 03:49] LABS: Nucleated Red Blood Cells % 0.0 %
[2025-05-18 03:52] LABS: Hematocrit 33.8 % (41.0-53.0); Hemoglobin 11.2 g/dL (13.5-17.5); Mean Corpuscular Hemoglobin 26.5 pg (28.0-32.0); Mean Corpuscular Volume 80.1 fL (80.0-100.0)
[2025-05-18 04:02] LABS: Anion Gap 10 (5-15); Calcium 9.5 mg/dL (8.7-10.4); Carbon Dioxide 24 mmol/L (20-31); Chloride 105 mmol/L (98-107); Potassium 4.3 mmol/L (3.5-5.1); Sodium 139 mmol/L (136-145)
[2025-05-18 04:09] LABS: BUN/Creatinine Ratio 18.6 (10.0-20.0); Blood Urea Nitrogen 19 mg/dL (9-23); Magnesium 1.9 mg/dL (1.6-2.6)
[2025-05-18 04:12] LABS: INR 1.06 (0.9-1.15); Partial Thromboplastin Time 32.3 SEC (24.5-34.5); Prothrombin Time 11.2 sec (9.3-11.8)
[2025-05-18 04:14] LABS: Glucose 137 mg/dL (74-106)
--- NOTE | 2025-05-18 12:57 | DVHPN2 ---
Consult Progress Note Subjective Patient reports: Feels better Objective vital signs Vital Sign Date Time Temp Pulse Resp B/P (MAP) Pulse Ox O2 Delivery O2 Flow Rate FiO2 05/18/25 12:00 98.8 70 13 140/72 (94) 96 98.8 05/18/25 12:00 Room Air* 0 21 Total Intake and Output 05/17/25 05/17/25 05/18/25 15:00 23:00 07:00 Intake Total 50 ml 0 ml 200 ml Output Total 800 ml 800 ml Balance 50 ml -800 ml -600 ml medications Current Medications Medications Dose Ordered Sig/Simona Route Start Time Stop Time Status Last Admin Dose Admin Acetaminophen 650 mg Q6HP PRN PO 05/14/25 13:30 Ondansetron HCl 4 mg Q4HPRN PRN IV 05/14/25 14:00 Enoxaparin Sodium 80 mg Q12HR SC 05/15/25 10:00 05/18/25 09:37 80 MG Acetaminophen/ Hydrocodone Bitart 1 tab Q6HPRN PRN PO 05/14/25 16:45 Cancel Acetaminophen/ Hydrocodone Bitart 1 tab Q6HP PRN PO 05/14/25 17:15 05/18/25 08:10 1 TAB Diagnostic Test (Pha) 1 strip Q6HR 05/15/25 00:00 05/18/25 11:37 1 STRIP Insulin Human Regular Q6HR SC 05/15/25 00:00 05/18/25 11:40 3 UNITS Dextrose 50 ml UD PRN IV 05/14/25 18:30 Morphine Sulfate 1 mg Q4HPRN PRN IV 05/15/25 14:45 05/18/25 11:30 1 MG Pantoprazole Sodium 40 mg DAILY IV 05/16/25 10:00 05/18/25 09:37 40 MG Ceftriaxone Sodium 50 ml @ 100 mls/hr DAILY@09 IV 05/16/25 09:00 05/18/25 09:29 100 MLS/HR Examination: CVS:Abnormal (Tele consistent with V paced rhythm ) laboratory and microbiology Laboratory Tests 05/18/25 02:55 Test 05/18/25 02:55 Range/Units Serum Glucose 137 H 74-106 mg/dL Problem List/Assessment/Plan Problem List/Assessment/Plan Problem List/Assessment/Plan Symptomatic sinus bradycardia with junctional rhythm Paroxysmal atrial fibrillation, Stage 3a (on Xarelto/Propanolol/?metoprolol) Chronic compensated HFpEF Moderate tricuspid valve regurgitation Sml-xjbslky-edyezlioq diabetes mellitus Presence of implanted neurostimulator Chronic back pain with opioid dependence Dyslipidemia Plan/Recommendations (Dr. Mariano) Patient seen and evaluated at bedside with . Transthoracic echocardiogram reveals an EF of 75% with normal diastolic function. Given profound bradycardia with associated acute hypotension and hemodynamic instability, the patient underwent a temporary transvenous pacemaker implantation followed by permanent pacemaker with biotronik device. Normal functioning on telemetry review. Patient interrogation this morning shows normal functioning device. CXR negative for acute cardiopulmonary abnormalities. Stable. On subcu Lovenox resume Xarelto on DC. Advised cardiology follow up on DC. May downgrade from ICU. Stable from Cardiology standpoint he will use it. Most may resume work BP meds as tolerated. Thank you for allowing us to participate in this patient's care. Please call if you have any questions or concerns. Critical care, time spent: 35 minutes This medical document was created using an electronic medical record system with voice recognition software and computerized dictation system. Although this document has been carefully reviewed, there might still be some phonetic and typographical errors. Occasional wrong-word or ``sound-alike substitutions may have occurred due to the inherent limitations of voice recognition software. These areas are purely typographical due to imperfections of the software programs and do not reflect any compromise in the patient's medical care. Please read the chart carefully and recognize, using context, where these substitutions have occurred. Thank you for allowing me to participate in the management of this patient. The treatment plan was discussed with and agreed upon by patient/family including requesting consultants and ordering of imaging/procedures. Plan discussed with: Patient Dietary Evaluation Review Comments: Nutrition Recommendation: 1) CCHO 75gm + cardiac diet 2) Glucerna 240ml TID 3) Monitor PO intake, lab values, weight trend, and I/O Expected Outcomes/Goals: Intake to meet >75% estimated needs FU 3-5 days Date of Service: May 18, 2025 Billing Provider: VITALY ALCARAZ Common Visit Codes: [id number] INP/OBS CARE(HIGH), [id number] CARE 30-74 MIN VITALY ALCARAZ May 18, 2025 12:56
--- NOTE | 2025-05-18 14:39 | DVHPNRES ---
Progress Note Date Seen: May 18, 2025 Resident Creating Document: KENA QUINTANILLA RESIDENT Medical Necessity Reason Pt with a Central, PICC or Fol: Yes The following are medically ne: [place] Catheter Subjective Review of Systems Mr. Hendrix is a 79 year old male with PMHx of prostate cancer s/p prostatectomy and radiation in 2009, CKD, Atrial Fibrillation on Xarelto, diabetes mellitus, hypertension, chronic back pain, and dyslipidemia, who presented to [facility] via EMS due to bradycardia. The patient was at a routine physical with his PCP at a local [facility] when he was found to have HR in the 30s, 12-lead electrocardiogram revealing an idioventricular rhythm with an associated right bundle branch block and a heart rate in the 30s bpm., for which 911 was called and he was transferred to the emergency department. On evaluation in the ED, the patient was afebrile, HR 33 bpm, originally hypertensive then slightly hypotensive. 12 lead electrocardiogram revealing a junctional rhythm in the 30s bpm. Initial labs significant for normocytic hypochromic anemia, elevated creatinine of 1.43, and BUN of 28. PT of 12.4, INR 1.19, and UDS positive fo opiates. Initial chest xray shows patchy right basilar opacities, however this does not appear on follow up xray. On evaluation, it was found that the patient was on both metoprolol tartrate 50 mg BID and propranolol 20 mg BID. Glucagon was given and dopamine for vasopressor support and was admitted on ICU status. He was evaluated by cardiology who recommended transvenous pacemaker placement, followed by permanent pacemaker once anticoagulation washes out. He was taken to the [facility] and transvenous pacemaker was placed in the right femoral region with a set rate of 60 bpm. On initial evaluation in the ICU, the patient is well. States he began to have dizziness upon standing and some shortness of breath approximately six months ago, around the time he was prescribed propranolol. At this time, refers only back pain associated to chronic back problems, denies dizziness, generalized weakness, shortness of breath, palpitations, and chest pain. He states he began to feel dizziness upon standing approximately 6 months ago. He was afebrile, HR 60 (rhythm set by pacer), with MAP within normal range. CBC was stable, renal function slightly worsened from admission. Prior medical history: Prostate cancer, CKD, Atrial fibrillation, hypertension, diabetes mellitus, dyslipidemia, chronic back pain Prior surgical history: Prostatectomy, hiatal hernia repair, spinal stimulator implant placement, vasectomy, colon polypectomy Allergies: Per record, patient is allergic to metronizadole, however patient denies Social history: Refers previous tobacco, marijuana, methamphetamine, and heavy alcohol use, with cessatiton approximately 37 years ago Home medications: Aspirin, jardiance, fluticasone, metformin, Xarelto, rosuvastatin, amlodipine, spironolactone, propranolol, metoprolol 05/17/2025: The patient is seen in the ICU. Per nurse, no over night events to report. He is afebrile, heart rate continues to be 60, MAP within normal range. Labs are stable. Kidney function continues to improve. The patient went to the [facility] today for pacemaker placement. Patient tolerated procedure is now back 8in the CU. Refers he feels tired, denies any pain, nausea, dizziness, palpitations or weakness. 05/16/2025: The patient is seen in the ICU. Per nurse, no over night events to report. He is afebrile, heart rate continues to be 60, with MAP within normal range. Labs are stable. Kidney function has improved. Per cardiology, he will go for pacemaker placement tomorrow. 05/18/2025: The patient is seen in the ICU. Per nurse, no over night events to report. He is afebrile, heart rate continues to be 70, with MAP within normal range. Patient underwent to permanent pacemaker placement yesterday, patient is downgraded to tele. Objective vital signs Vital Sign Date Time Temp Pulse Resp B/P (MAP) Pulse Ox O2 Delivery O2 Flow Rate FiO2 05/18/25 12:00 98.8 70 13 140/72 (94) 96 98.8 05/18/25 12:00 Room Air* 0 21 Total Intake and Output 05/17/25 05/17/25 05/18/25 15:00 23:00 07:00 Intake Total 50 ml 0 ml 200 ml Output Total 800 ml 800 ml Balance 50 ml -800 ml -600 ml medications Current Medications Medications Dose Ordered Sig/Simona Route Start Time Stop Time Status Last Admin Dose Admin Acetaminophen 650 mg Q6HP PRN PO 05/14/25 13:30 Ondansetron HCl 4 mg Q4HPRN PRN IV 05/14/25 14:00 Enoxaparin Sodium 80 mg Q12HR SC 05/15/25 10:00 05/18/25 09:37 80 MG Acetaminophen/ Hydrocodone Bitart 1 tab Q6HPRN PRN PO 05/14/25 16:45 Cancel Acetaminophen/ Hydrocodone Bitart 1 tab Q6HP PRN PO 05/14/25 17:15 05/18/25 14:05 1 TAB Diagnostic Test (Pha) 1 strip Q6HR 05/15/25 00:00 05/18/25 11:37 1 STRIP Insulin Human Regular Q6HR SC 05/15/25 00:00 05/18/25 11:40 3 UNITS Dextrose 50 ml UD PRN IV 05/14/25 18:30 Morphine Sulfate 1 mg Q4HPRN PRN IV 05/15/25 14:45 05/18/25 11:30 1 MG Pantoprazole Sodium 40 mg DAILY IV 05/16/25 10:00 05/18/25 09:37 40 MG Ceftriaxone Sodium 50 ml @ 100 mls/hr DAILY@09 IV 05/16/25 09:00 05/18/25 09:29 100 MLS/HR Examination General: Alert, AOx4, follows commands HEENT: Normocephalic, atraumatic, pupils are reactive, pale conjunctive, moist mucous membranes Respiratory/pulmonary: Bilateral chest expansion, no pain on palpation of chest wall, clear lungs bilaterally, vesicular murmur without crackles or wheezing, linear incision observed over left pectoral region, is clean and approximated with bleeding or suppuration Cardiovascular: Paced rhythm Abdomen: Abdomen nondistended, non-distended, normal bowel sounds, soft, no pain on palpation to any abdominal quadrants : [place]enton present draining urine that is still dark but improved from yesterday Extremities: No deformities, no peripheral edema, pulses are palpable Peripheral pulses: 2+ radial (R), 2+ radial (L), 2+ Dorsalis pedis (R), 2 + Dorsalis pedis (L) Skin: No rashes or pruritus Neurological: Alert, AOx4, no focal deficits noted. laboratory and microbiology Laboratory Tests 05/18/25 02:55 Test 05/18/25 02:55 Range/Units Serum Glucose 137 H 74-106 mg/dL Microbiology Date/Time Source Procedure Growth Status 05/15/25 13:52 Urine - [place] Urine Culture - Final Complete 05/14/25 19:05 Nose MRSA Screen - Final Complete Problem List/Assessment/Plan Problem List/Assessment/Plan Neurology # Alert Cardiovascular # Possible Sick Sinus Syndrome with bradycardia - Dopamine infusion discontinued - Cardiology is on board, patient is candidate for permanent pacemaker - S/p Temporary transvenous pacemaker implantation 05/14/2025 - Avoid AV oscar blocking agents - Metoprolol and propranolol discontinued at this time - Glucagon 5 mg given once for beta soledad reversal - S/p pacemaker placement 05/17/2025 # Paroxysmal Atrial fibrillation - [id number]: 4 - Xarelto held before pacemaker placement - Lovenox therapeutic dose # Chronic Systolic and Diastolic Heart Failure, not exacerbated (per records) - Echocardiogram 05/15/2025: Left ventricle: The cavity size is normal. Wall thickness is the upper limits of normal. Calculated ejection fraction 75%. Normal diastolic function. Right ventricle : Systolic function is normal. Estimated RVSP 57 mm Hg. There is left atrial enlargement. There is right atrial enlargement. Aortic valve: Trileaflet aortic valve. No aortic stenosis or aortic regurgitation Mitral valve: There is no mitral stenosis. There is trace mitral regurgitation. Tricuspid valve: There is moderate tricuspid regurgitation. Pulmonary valve: There is mild pulmonic regurgitation. Pericardium: There is no pericardial effusion. Inferior vena cava: The vessel is normal in size. There is normal respiratory phasic variation. - Hold Spironolactone until blood pressure is more controlled # Hypertension - Monitor - Lisinopril was discontinued due to low blood pressure - Amlodipine held # Dyslipidemia Respiratory # Pneumonia, ruled out GI # Peptic ulcer prophylaxis -Pantoprazole 40 mg IV daily # History of hiatal hernia # Denton catheter draining brown urine #History of Prostate cancer in 2009 - S/p Prostatectomy - S/p Prostate radiation Possible Complicated UTI - Ceftriaxone 1 mg IV daily - Urine culture ordered Nephrology #ALMA on CKD stage 3a likely due to VMN, PoA, resolved - Avoid nephrotoxic drugs - Monitor BMP - Urine protein/ creatinine ordered - Urine sodium # Rhabdomyolisis ruled out - CK: 27 Hem/onc #Normocytic hypochromic anemia - Monitor H and H Endocrine #Type 2 Diabetes Mellitus - Hold Jardiance and Metformin - SSI - Accu-cheks MSK # Chronic back pain - [place] 7.5 mg/ 325 mg PO q 6 hours - Morphine 1 mg IV q 6 hrs PRN - Lidocaine patch DVT prophylaxis - Lovenox therapeutic dose due to AFib PUD prophylaxis: - Protonix 40 mg IV daily Lines - [place] catheter : 05/14/2025 - R peripheral line: 05/14/2025 [facility] - Dopamine discontinued Nutrition: - Cardiac diet patient is downgraded to tele. Critical care time 43 minutes excluding procedure. Code status discussed greater than 20 minutes: Full CODE STATUS. Plan discussed with Dr. Viramontes Plan discussed with: Patient My Orders My Orders Orders - KENA QUINTANILLA RESIDENT Procedure Category Date Status Time Transfer Orders XFER 05/18/25 Transmitted 10:05 Dietary Evaluation Review Comments: Nutrition Recommendation: 1) CCHO 75gm + cardiac diet 2) Glucerna 240ml TID 3) Monitor PO intake, lab values, weight trend, and I/O Expected Outcomes/Goals: Intake to meet >75% estimated needs FU 3-5 days KENA QUINTANILLA RESIDENT May 18, 2025 14:39
--- NOTE | 2025-05-18 23:58 | DVHPN2 ---
Subjective DOS: 05/18/2025 Patient seen and examined at bedside. Breathing comfortably on room air. Overnight events reviewed. Changes from previous H/P or p: No Changes Objective Vitals Vital Signs Date Time Temp Pulse Resp B/P (MAP) Pulse Ox O2 Delivery O2 Flow Rate FiO2 05/18/25 22:57 101 18 133/88 05/18/25 21:00 98.4 97 98.4 05/18/25 20:00 Room Air* 0 21 Intake/Output Intake and Output 05/18/25 07:00 Intake Total 250 ml Output Total 1600 ml Balance -1350 ml Intake Oral 200 ml IV Total 50 ml Output Urine Total 1600 ml Exam Gen.: Patient lying in bed in no apparent distress. Breathing on room air. Head: Normocephalic, atraumatic. Eyes: EOMI/PERRLA. Ears: Normal hearing. Normal anatomy. Neck/trachea: Trachea midline, supple. Nose: Normal external anatomy. Mouth: Moist mucous membranes. Chest: Decreased air entry bilaterally. No wheezing or rhonchi. Cardiovascular: Positive S1, positive S2. Regular rate and rhythm. Abdomen: Positive bowel sounds in all 4 quadrants. Soft, non-tender, non- distended. : Deferred. Rectal: Deferred. Skin: Warm, dry. Intact. Extremities: 2+ radial pulses bilaterally. No lower extremity edema. Neuro: Awake, alert, oriented x3. No gross motor or sensory deficits. Cranial nerves II through XII intact. Gait not assessed. Medications Current Medications Medications Dose Ordered Sig/Simona Route Start Time Stop Time Status Last Admin Dose Admin Acetaminophen 650 mg Q6HP PRN PO 05/14/25 13:30 Ondansetron HCl 4 mg Q4HPRN PRN IV 05/14/25 14:00 Enoxaparin Sodium 80 mg Q12HR SC 05/15/25 10:00 05/18/25 20:57 80 MG Acetaminophen/ Hydrocodone Bitart 1 tab Q6HPRN PRN PO 05/14/25 16:45 Cancel Acetaminophen/ Hydrocodone Bitart 1 tab Q6HP PRN PO 05/14/25 17:15 05/18/25 20:58 1 TAB Diagnostic Test (Pha) 1 strip Q6HR 05/15/25 00:00 05/18/25 22:57 1 STRIP Insulin Human Regular Q6HR SC 05/15/25 00:00 05/18/25 22:57 2 UNITS Dextrose 50 ml UD PRN IV 05/14/25 18:30 Morphine Sulfate 1 mg Q4HPRN PRN IV 05/15/25 14:45 05/18/25 22:57 1 MG Pantoprazole Sodium 40 mg DAILY IV 05/16/25 10:00 05/18/25 09:37 40 MG Ceftriaxone Sodium 50 ml @ 100 mls/hr DAILY@09 IV 05/16/25 09:00 05/18/25 09:29 100 MLS/HR Laboratory Results Laboratory Tests 05/18/25 02:55 Chemistry Test 05/18/25 02:55 Calcium Level 9.5 mg/dL (8.7-10.4) Magnesium Level 1.9 mg/dL (1.6-2.6) Phosphorus Level 2.7 mg/dL (2.4-5.1) Coagulation Test 05/18/25 02:55 Prothrombin Time 11.2 sec (9.3-11.8) Prothrombin Time INR 1.06 (0.9-1.15) Activated Partial Thromboplast Time 32.3 SEC (24.5-34.5) Urinalysis Test 05/15/25 13:52 Urine Color Dark-brown (Yellow) Urine Clarity Ex.turbid (Clear) Urine pH 5.0 (5.0-9.0) Urine Specific [place] 1.020 (1.001-1.035) Urine Protein 1+ (Negative) H Urine Ketones Negative (Negative) Urine Blood 3+ /uL (Negative) H Urine Nitrite Negative (Negative) Urine Bilirubin Negative (Negative) Urine Urobilinogen Normal mg/dL (Negative) Urine Leukocyte Esterase 1+ /uL (Negative) Urine RBC 1487 /hpf (0 - 3) Urine WBC Clumps Present /hpf (None Seen) Urine Microscopic WBC 204 /HPF (0-3) H Urine Squamous Epithelial Cells None seen /hpf (<5) Urine Bacteria None seen /hpf (None Seen) Urine Mucus Few (None Seen) Urine Creatinine 108.43 mg/dL (30.0-125.0) Urine Protein/Creatinine Ratio 1.57 Urine Sodium 42 mmol/L (40-220) Urine Glucose Normal mg/dL (Normal) Urine Total Protein 170.1 mg/dL (1-14) H Microbiology Microbiology Date/Time Source Procedure Growth Status 05/15/25 13:52 Urine - [place] Urine Culture - Final Complete 05/14/25 19:05 Nose MRSA Screen - Final Complete Assessment/Plan Assessment/Plan Impression: 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 Breathing on room air Supplemental oxygen PRN No overnight events. He is afebrile Labs are stable. Kidney function has improved. Patient is s/p pacemaker placement on 05/17/25. Cardiology recs appreciated. Patient remains on transvenous pacer. Patient is stable for downgrade to telemetry. Pain control Avoid oversedation Continue antibiotics Incentive spirometry Labs and imaging reviewed. Rest of plan as noted below. Plan: Supplemental oxygen PRN Titrate to keep O2 sats above 92%. Propranolol + metoprolol on hold. Xarelto held Empiric antibiotics Incentive spirometry Pain control Avoid oversedation Pt was noted to have dark-colored urine on 05/15, cleared up. Monitor renal function. Monitor electrolytes. Supplement as necessary. Monitor ins and outs. [place] for strict ins and outs. DVT prophylaxis - Lovenox. Prognosis: Poor given patient's multiple co-morbidities. Rest of plan per hospitalist and other consultants. Thank you, Dr. Terry Palacio, for allowing me to participate in this patient's care. Further recommendations will depend on the patient's clinical course. Please do not hesitate to contact me if you have any questions or concerns. This medical document was created using an electronic medical record system with [employer] dictation system. Although these documentations are being carefully reviewed, there may still be some phonetic and typographical changes. The errors are purely typographical, due to imperfection on the software program, and do not reflect any compromise in the patient's medical care. Plan discussed with: Patient, Other (RN Eulalio) Visit Coding Pulmonary Billing Provider: CORNELIUS SULTANA MD Date of Service if different f: May 18, 2025 Common Visit Codes: 24030-[id number] INP/OBS CARE(HIGH) CORNELIUS SULTANA MD May 18, 2025 23:58
[2025-05-19] VITALS (8 sets, daily range): BP systolic 120–151; BP diastolic 43–78; PULSE 69–75; RESP 15–19; TEMP 98–98.8; O2SAT 96–100
[2025-05-19 07:10] LABS: Hematocrit 34.8 % (41.0-53.0); Hemoglobin 11.2 g/dL (13.5-17.5); Mean Corpuscular Hemoglobin 26.5 pg (28.0-32.0); Mean Corpuscular Volume 82.3 fL (80.0-100.0); Nucleated Red Blood Cells % 0.1 %
[2025-05-19 07:30] LABS: Alanine Aminotransferase 10 U/L (7-40); Albumin 3.7 g/dL (3.2-4.8); Alkaline Phosphatase 96 U/L (46-116); Anion Gap 11 (5-15); BUN/Creatinine Ratio 19.0 (10.0-20.0); Bilirubin, Total 0.4 mg/dL (0.2-1.0); Blood Urea Nitrogen 22 mg/dL (9-23); Calcium 9.4 mg/dL (8.7-10.4); Carbon Dioxide 22 mmol/L (20-31); Chloride 106 mmol/L (98-107); Potassium 4.2 mmol/L (3.5-5.1); Sodium 139 mmol/L (136-145); Total Protein 6.0 g/dL (5.7-8.2)
[2025-05-19 07:31] LABS: Glucose 116 mg/dL (74-106)
--- NOTE | 2025-05-19 12:52 | DVHPN2 ---
Consult Progress Note Subjective Patient reports: Feels better Objective vital signs Vital Sign Date Time Temp Pulse Resp B/P (MAP) Pulse Ox O2 Delivery O2 Flow Rate FiO2 05/19/25 12:38 98.4 70 18 138/74 (95) 96 98.4 05/19/25 08:00 Room Air* 0 21 Total Intake and Output 05/18/25 05/18/25 05/19/25 15:00 23:00 07:00 Intake Total 650 ml 600 ml 500 ml Output Total 300 ml 300 ml Balance 650 ml 300 ml 200 ml medications Current Medications Medications Dose Ordered Sig/Simona Route Start Time Stop Time Status Last Admin Dose Admin Acetaminophen 650 mg Q6HP PRN PO 05/14/25 13:30 Ondansetron HCl 4 mg Q4HPRN PRN IV 05/14/25 14:00 Enoxaparin Sodium 80 mg Q12HR SC 05/15/25 10:00 05/18/25 20:57 80 MG Acetaminophen/ Hydrocodone Bitart 1 tab Q6HPRN PRN PO 05/14/25 16:45 Cancel Acetaminophen/ Hydrocodone Bitart 1 tab Q6HP PRN PO 05/14/25 17:15 05/19/25 11:36 1 TAB Diagnostic Test (Pha) 1 strip Q6HR 05/15/25 00:00 05/19/25 11:32 1 STRIP Insulin Human Regular Q6HR SC 05/15/25 00:00 05/19/25 11:33 6 UNITS Dextrose 50 ml UD PRN IV 05/14/25 18:30 Morphine Sulfate 1 mg Q4HPRN PRN IV 05/15/25 14:45 05/19/25 09:40 1 MG Pantoprazole Sodium 40 mg DAILY IV 05/16/25 10:00 05/19/25 09:13 40 MG Ceftriaxone Sodium 50 ml @ 100 mls/hr DAILY@09 IV 05/16/25 09:00 05/19/25 09:13 100 MLS/HR Examination: CVS:Normal (Telemetry consistent with V paced rhythm at 70 beats per minute.) laboratory and microbiology Laboratory Tests 05/19/25 05:33 Test 05/19/25 05:33 Range/Units Serum Glucose 116 H 74-106 mg/dL Problem List/Assessment/Plan Problem List/Assessment/Plan Problem List/Assessment/Plan Symptomatic sinus bradycardia with junctional rhythm Paroxysmal atrial fibrillation, Stage 3a (on Xarelto/Propanolol/?metoprolol) Chronic compensated HFpEF Moderate tricuspid valve regurgitation Wye-ktyfdly-voanrmjxz diabetes mellitus Presence of implanted neurostimulator Chronic back pain with opioid dependence Dyslipidemia Plan/Recommendations (Dr. Mariano) Patient seen and evaluated at bedside with . Transthoracic echocardiogram reveals an EF of 75% with normal diastolic function. Given profound bradycardia with associated acute hypotension and hemodynamic instability, the patient underwent a temporary transvenous pacemaker implantation followed by permanent pacemaker with biotronik device. Normal functioning on telemetry review. Patient interrogation this morning shows normal functioning device. CXR negative for acute cardiopulmonary abnormalities. Stable. On subcu Lovenox held currently due to saturation at dressing site. Resume Xarelto on DC. Episodes of RVR this morning, short nature, resolved on own, Metoprolol restarted. Advised cardiology follow up on DC. May downgrade from ICU. Stable from Cardiology standpoint he will use it. Most may resume work BP meds as tolerated. Thank you for allowing us to participate in this patient's care. Please call if you have any questions or concerns. Critical care, time spent: 35 minutes This medical document was created using an electronic medical record system with voice recognition software and computerized dictation system. Although this document has been carefully reviewed, there might still be some phonetic and typographical errors. Occasional wrong-word or ``sound-alike substitutions may have occurred due to the inherent limitations of voice recognition software. These areas are purely typographical due to imperfections of the software programs and do not reflect any compromise in the patient's medical care. Please read the chart carefully and recognize, using context, where these substitutions have occurred. Thank you for allowing me to participate in the management of this patient. The treatment plan was discussed with and agreed upon by patient/family including requesting consultants and ordering of imaging/procedures. Plan discussed with: Patient Dietary Evaluation Review Comments: Nutrition Recommendation: 1) CCHO 75gm + cardiac diet 2) Glucerna 240ml TID 3) Monitor PO intake, lab values, weight trend, and I/O Expected Outcomes/Goals: Intake to meet >75% estimated needs FU 3-5 days Date of Service: May 19, 2025 Billing Provider: VITALY ALCARAZ [facility] Common Visit Codes: [id number] INP/OBS CARE(HIGH), [id number] CARE 30-74 MIN VITALY ALCARAZ [facility] May 19, 2025 12:52
[2025-05-19] MEDS: METOPROLOL TARTRATE 50 MG TAB PO ONE (13:00)
--- NOTE | 2025-05-19 16:56 | DVHPNRES ---
Progress Note Date Seen: May 19, 2025 Resident Creating Document: DEL LO RESIDENT Medical Necessity Reason Pt with a Central, PICC or Fol: Yes Subjective Review of Systems Mr. Hendrix is a 79 year old male with PMHx of prostate cancer s/p prostatectomy and radiation in 2009, CKD, Atrial Fibrillation on Xarelto, diabetes mellitus, hypertension, chronic back pain, and dyslipidemia, who presented to [facility] via EMS due to bradycardia. The patient was at a routine physical with his PCP at a local [place] [facility] when he was found to have HR in the 30s, 12-lead electrocardiogram revealing an idioventricular rhythm with an associated right bundle branch block and a heart rate in the 30s bpm., for which 911 was called and he was transferred to the emergency department. On evaluation in the ED, the patient was afebrile, HR 33 bpm, originally hypertensive then slightly hypotensive. 12 lead electrocardiogram revealing a junctional rhythm in the 30s bpm. Initial labs significant for normocytic hypochromic anemia, elevated creatinine of 1.43, and BUN of 28. PT of 12.4, INR 1.19, and UDS positive fo opiates. Initial chest xray shows patchy right basilar opacities, however this does not appear on follow up xray. On evaluation, it was found that the patient was on both metoprolol tartrate 50 mg BID and propranolol 20 mg BID. Glucagon was given and dopamine for vasopressor support and was admitted on ICU status. He was evaluated by cardiology who recommended transvenous pacemaker placement, followed by permanent pacemaker once anticoagulation washes out. He was taken to the labor law professor and transvenous pacemaker was placed in the right femoral region with a set rate of 60 bpm. On initial evaluation in the ICU, the patient is well. States he began to have dizziness upon standing and some shortness of breath approximately six months ago, around the time he was prescribed propranolol. At this time, refers only back pain associated to chronic back problems, denies dizziness, generalized weakness, shortness of breath, palpitations, and chest pain. He states he began to feel dizziness upon standing approximately 6 months ago. He was afebrile, HR 60 (rhythm set by pacer), with MAP within normal range. CBC was stable, renal function slightly worsened from admission. Prior medical history: Prostate cancer, CKD, Atrial fibrillation, hypertension, diabetes mellitus, dyslipidemia, chronic back pain Prior surgical history: Prostatectomy, hiatal hernia repair, spinal stimulator implant placement, vasectomy, colon polypectomy Allergies: Per record, patient is allergic to metronizadole, however patient denies Social history: Refers previous tobacco, marijuana, methamphetamine, and heavy alcohol use, with cessatiton approximately 37 years ago Home medications: Aspirin, jardiance, fluticasone, metformin, Xarelto, rosuvastatin, amlodipine, spironolactone, propranolol, metoprolol 05/17/2025: The patient is seen in the ICU. Per nurse, no over night events to report. He is afebrile, heart rate continues to be 60, MAP within normal range. Labs are stable. Kidney function continues to improve. The patient went to the labor law professor today for pacemaker placement. Patient tolerated procedure is now back 8in the CU. Refers he feels tired, denies any pain, nausea, dizziness, palpitations or weakness. 05/16/2025: The patient is seen in the ICU. Per nurse, no over night events to report. He is afebrile, heart rate continues to be 60, with MAP within normal range. Labs are stable. Kidney function has improved. Per cardiology, he will go for pacemaker placement tomorrow. 05/18/2025: The patient is seen in the ICU. Per nurse, no over night events to report. He is afebrile, heart rate continues to be 70, with MAP within normal range. Patient underwent to permanent pacemaker placement yesterday, patient is downgraded to tele. 05/19/2025: The patient is seen at bedside. Per nurse, the patient started bleeding from pacemaker insertion site overnight. He is afebrile, heart rate remains at 70 or above, MAP is within normal range. Patient currently continues to bleed from incision in left pectoral region, surgical snow has been placed. If bleeding is more controlled, possible discharge tomorrow. Review of Systems: Constitutional: Denies weight loss, fever and chills. HEENT: Denies changes in vision and hearing. Respiratory: Denies shortness of breath and cough Cardiovascular: Denies chest discomfort or palpitations GI: Denies abdominal distention, abdominal pain, diarrhea : Denies dysuria and urinary frequency. Musculoskeletal: Refers localized back pain Skin: Bleeding from incision in left pectoral region Neurological: denies dizziness headache vision or hearing problems Objective vital signs Vital Sign Date Time Temp Pulse Resp B/P (MAP) Pulse Ox O2 Delivery O2 Flow Rate FiO2 05/19/25 14:30 70 18 138/74 05/19/25 12:38 98.4 96 98.4 05/19/25 08:00 Room Air* 0 21 Total Intake and Output 05/18/25 05/18/25 05/19/25 15:00 23:00 07:00 Intake Total 650 ml 600 ml 500 ml Output Total 300 ml 300 ml Balance 650 ml 300 ml 200 ml medications Current Medications Medications Dose Ordered Sig/Simona Route Start Time Stop Time Status Last Admin Dose Admin Acetaminophen 650 mg Q6HP PRN PO 05/14/25 13:30 Ondansetron HCl 4 mg Q4HPRN PRN IV 05/14/25 14:00 Enoxaparin Sodium 80 mg Q12HR SC 05/15/25 10:00 05/18/25 20:57 80 MG Acetaminophen/ Hydrocodone Bitart 1 tab Q6HPRN PRN PO 05/14/25 16:45 Cancel Acetaminophen/ Hydrocodone Bitart 1 tab Q6HP PRN PO 05/14/25 17:15 05/19/25 11:36 1 TAB Diagnostic Test (Pha) 1 strip Q6HR 05/15/25 00:00 05/19/25 11:32 1 STRIP Insulin Human Regular Q6HR SC 05/15/25 00:00 05/19/25 11:33 6 UNITS Dextrose 50 ml UD PRN IV 05/14/25 18:30 Morphine Sulfate 1 mg Q4HPRN PRN IV 05/15/25 14:45 05/19/25 14:30 1 MG Pantoprazole Sodium 40 mg DAILY IV 05/16/25 10:00 05/19/25 09:13 40 MG Ceftriaxone Sodium 50 ml @ 100 mls/hr DAILY@09 IV 05/16/25 09:00 05/19/25 09:13 100 MLS/HR Metoprolol Tartrate 50 mg BID PO 05/19/25 22:00 Examination General: Alert, AOx4, follows commands HEENT: Normocephalic, atraumatic, pupils are reactive, pale conjunctive, moist mucous membranes Respiratory/pulmonary: Bilateral chest expansion, no pain on palpation of chest wall, clear lungs bilaterally, vesicular murmur without crackles or wheezing, linear incision observed over left pectoral region presence of dark red blood. Cardiovascular: Paced rhythm Abdomen: Abdomen nondistended, non-distended, normal bowel sounds, soft, no pain on palpation to any abdominal quadrants Extremities: No deformities, no peripheral edema, pulses are palpable Peripheral pulses: 2+ radial (R), 2+ radial (L), 2+ Dorsalis pedis (R), 2 + Dorsalis pedis (L) Skin: No rashes or pruritus Neurological: Alert, AOx4, no focal deficits noted laboratory and microbiology Laboratory Tests 05/19/25 05:33 Test 05/19/25 05:33 Range/Units Serum Glucose 116 H 74-106 mg/dL Microbiology Date/Time Source Procedure Growth Status 05/15/25 13:52 Urine - [place] Urine Culture - Final Complete 05/14/25 19:05 Nose MRSA Screen - Final Complete Problem List/Assessment/Plan Problem List/Assessment/Plan Assessment and Plan: Neurology # Alert Cardiovascular # Possible Sick Sinus Syndrome with bradycardia - Dopamine infusion discontinued - Cardiology is on board, patient is candidate for permanent pacemaker - S/p Temporary transvenous pacemaker implantation 05/14/2025 - Avoid AV oscar blocking agents - Metoprolol and propranolol discontinued at this time - Glucagon 5 mg given once for beta soledad reversal - S/p pacemaker placement 05/17/2025 # Paroxysmal Atrial fibrillation - [id number]: 4 - Xarelto held before pacemaker placement - Lovenox therapeutic dose # Chronic Systolic and Diastolic Heart Failure, not exacerbated (per records) - Echocardiogram 05/15/2025: Left ventricle: The cavity size is normal. Wall thickness is the upper limits of normal. Calculated ejection fraction 75%. Normal diastolic function. Right ventricle : Systolic function is normal. Estimated RVSP 57 mm Hg. There is left atrial enlargement. There is right atrial enlargement. Aortic valve: Trileaflet aortic valve. No aortic stenosis or aortic regurgitation Mitral valve: There is no mitral stenosis. There is trace mitral regurgitation. Tricuspid valve: There is moderate tricuspid regurgitation. Pulmonary valve: There is mild pulmonic regurgitation. Pericardium: There is no pericardial effusion. Inferior vena cava: The vessel is normal in size. There is normal respiratory phasic variation. - Hold Spironolactone until blood pressure is more controlled # Hypertension - Monitor - Lisinopril 40 mg PO daily - Amlodipine held # Dyslipidemia Respiratory # Pneumonia, ruled out GI # Peptic ulcer prophylaxis -Pantoprazole 40 mg IV daily # History of hiatal hernia # [place] catheter draining brown urine #History of Prostate cancer in 2010 - S/p Prostatectomy - S/p Prostate radiation Possible Complicated UTI - Ceftriaxone 1 mg IV daily - Urine culture ordered Nephrology #ALMA on CKD stage 3a likely due to VMN, PoA, resolved - Avoid nephrotoxic drugs - Monitor BMP - Urine protein/ creatinine ordered - Urine sodium # Rhabdomyolisis ruled out - CK: 27 Hem/onc #Normocytic hypochromic anemia - Monitor H and H Endocrine #Type 2 Diabetes Mellitus - Hold Jardiance and Metformin - SSI - Accu-cheks MSK # Chronic back pain - [place] 7.5 mg/ 325 mg PO q 6 hours - Morphine 1 mg IV q 6 hrs PRN - Lidocaine patch DVT prophylaxis - Lovenox therapeutic dose due to AFib PUD prophylaxis: - Protonix 40 mg IV daily Lines - [place] catheter : 05/14/2025, discontinued - R peripheral line: 05/14/2025 Drips during mech ventilation - Dopamine discontinued Nutrition: - Cardiac diet Plan of care discussed with the patient and his , Susan, for over 45 minutes. All questions were answered and concerns addressed. Code status discussed greater than 20 minutes: Full CODE STATUS. His , Susan, was contacted via telephone for updates Plan discussed with Dr. Viramontes Plan discussed with: Spouse, Other (Nurse (May) ) Dietary Evaluation Review Comments: Nutrition Recommendation: 1) CCHO 75gm + cardiac diet 2) Glucerna 240ml TID 3) Monitor PO intake, lab values, weight trend, and I/O Expected Outcomes/Goals: Intake to meet >75% estimated needs FU 3-5 days Visit Coding STANDARD RES Billing Provider: CORNELIUS VIRAMONTES MD Date of Service if different f: May 19, 2025 DEL LO RESIDENT May 19, 2025 16:56
[2025-05-19] MEDS: METOPROLOL TARTRATE 50 MG TAB PO SCH (21:19)
--- NOTE | 2025-05-19 23:32 | DVHPN2 ---
Subjective DOS: 05/19/2025 Patient seen and examined at bedside. Breathing comfortably on room air. Overnight events reviewed. Changes from previous H/P or p: No Changes Objective Vitals Vital Signs Date Time Temp Pulse Resp B/P (MAP) Pulse Ox O2 Delivery O2 Flow Rate FiO2 05/19/25 21:19 70 153/74 05/19/25 21:00 16 05/19/25 21:00 98.0 98 98.0 05/19/25 08:00 Room Air* 0 21 Intake/Output Intake and Output 05/19/25 07:00 Intake Total 1750 ml Output Total 600 ml Balance 1150 ml Intake Oral 1700 ml IV Total 50 ml Output Urine Total 600 ml Exam Gen.: Patient lying in bed in no apparent distress. Breathing on room air. Head: Normocephalic, atraumatic. Eyes: EOMI/PERRLA. Ears: Normal hearing. Normal anatomy. Neck/trachea: Trachea midline, supple. Nose: Normal external anatomy. Mouth: Moist mucous membranes. Chest: Decreased air entry bilaterally. No wheezing or rhonchi. Cardiovascular: Positive S1, positive S2. Regular rate and rhythm. Abdomen: Positive bowel sounds in all 4 quadrants. Soft, non-tender, non- distended. : Deferred. Rectal: Deferred. Skin: Warm, dry. Intact. Extremities: 2+ radial pulses bilaterally. No lower extremity edema. Neuro: Awake, alert, oriented x3. No gross motor or sensory deficits. Cranial nerves II through XII intact. Gait not assessed. Medications Current Medications Medications Dose Ordered Sig/Simona Route Start Time Stop Time Status Last Admin Dose Admin Acetaminophen 650 mg Q6HP PRN PO 05/14/25 13:30 Ondansetron HCl 4 mg Q4HPRN PRN IV 05/14/25 14:00 Enoxaparin Sodium 80 mg Q12HR SC 05/15/25 10:00 05/18/25 20:57 80 MG Acetaminophen/ Hydrocodone Bitart 1 tab Q6HPRN PRN PO 05/14/25 16:45 Cancel Acetaminophen/ Hydrocodone Bitart 1 tab Q6HP PRN PO 05/14/25 17:15 05/19/25 17:54 1 TAB Diagnostic Test (Pha) 1 strip Q6HR 05/15/25 00:00 05/19/25 17:51 1 STRIP Insulin Human Regular Q6HR SC 05/15/25 00:00 05/19/25 11:33 6 UNITS Dextrose 50 ml UD PRN IV 05/14/25 18:30 Morphine Sulfate 1 mg Q4HPRN PRN IV 05/15/25 14:45 05/19/25 20:20 1 MG Pantoprazole Sodium 40 mg DAILY IV 05/16/25 10:00 05/19/25 09:13 40 MG Ceftriaxone Sodium 50 ml @ 100 mls/hr DAILY@09 IV 05/16/25 09:00 05/19/25 09:13 100 MLS/HR Metoprolol Tartrate 50 mg BID PO 05/19/25 22:00 05/19/25 21:19 50 MG Lisinopril 40 mg DAILY PO 05/20/25 10:00 Laboratory Results Laboratory Tests 05/19/25 05:33 Chemistry Test 05/19/25 05:33 Albumin 3.7 g/dL (3.2-4.8) Calcium Level 9.4 mg/dL (8.7-10.4) Total Protein 6.0 g/dL (5.7-8.2) LFT Test 05/19/25 05:33 Alanine Aminotransferase (ALT) 10 U/L (7-40) Alkaline Phosphatase 96 U/L (46-116) Aspartate Amino Transferase (AST) 17 U/L (13-40) Total Bilirubin 0.4 mg/dL (0.2-1.0) Urinalysis Test 05/15/25 13:52 Urine Color Dark-brown (Yellow) Urine Clarity Ex.turbid (Clear) Urine pH 5.0 (5.0-9.0) Urine Specific [place] 1.020 (1.001-1.035) Urine Protein 1+ (Negative) H Urine Ketones Negative (Negative) Urine Blood 3+ /uL (Negative) H Urine Nitrite Negative (Negative) Urine Bilirubin Negative (Negative) Urine Urobilinogen Normal mg/dL (Negative) Urine Leukocyte Esterase 1+ /uL (Negative) Urine RBC 1487 /hpf (0 - 3) Urine WBC Clumps Present /hpf (None Seen) Urine Microscopic WBC 204 /HPF (0-3) H Urine Squamous Epithelial Cells None seen /hpf (<5) Urine Bacteria None seen /hpf (None Seen) Urine Mucus Few (None Seen) Urine Creatinine 108.43 mg/dL (30.0-125.0) Urine Protein/Creatinine Ratio 1.57 Urine Sodium 42 mmol/L (40-220) Urine Glucose Normal mg/dL (Normal) Urine Total Protein 170.1 mg/dL (1-14) H Microbiology Microbiology Date/Time Source Procedure Growth Status 05/15/25 13:52 Urine - [place] Urine Culture - Final Complete 05/14/25 19:05 Nose MRSA Screen - Final Complete Assessment/Plan Assessment/Plan Impression: 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 Breathing on room air Supplemental oxygen PRN No overnight events. He is afebrile Labs are stable. Kidney function has improved. Patient is improving, ambulating. Patient is s/p pacemaker placement on 05/17/25. Cardiology recs appreciated. Patient remains on transvenous pacer. Pain control Avoid oversedation Continue antibiotics Incentive spirometry Disposition planning Labs and imaging reviewed. Rest of plan as noted below. Plan: Supplemental oxygen PRN Titrate to keep O2 sats above 92%. Propranolol + metoprolol on hold. Xarelto held Empiric antibiotics Incentive spirometry Pain control Avoid oversedation Pt was noted to have dark-colored urine on 05/15, cleared up. Monitor renal function. Monitor electrolytes. Supplement as necessary. Monitor ins and outs. [place] for strict ins and outs. DVT prophylaxis - Lovenox. Prognosis: Poor given patient's multiple co-morbidities. Rest of plan per hospitalist and other consultants. Thank you, Dr. Terry Palacio, for allowing me to participate in this patient's care. Further recommendations will depend on the patient's clinical course. Please do not hesitate to contact me if you have any questions or concerns. This medical document was created using an electronic medical record system with [employer] dictation system. Although these documentations are being carefully reviewed, there may still be some phonetic and typographical changes. The errors are purely typographical, due to imperfection on the software program, and do not reflect any compromise in the patient's medical care. Plan discussed with: Patient, Other (TYLER Olvera) Visit Coding Pulmonary Billing Provider: CORNELIUS SULTANA MD Date of Service if different f: May 19, 2025 Common Visit Codes: 76536-[id number] INP/OBS CARE(HIGH) CORNELIUS SULTANA MD May 19, 2025 23:32
[2025-05-20] VITALS (7 sets, daily range): BP systolic 125–153; BP diastolic 81–102; PULSE 68–100; RESP 16–22; TEMP 97.2–98.8; O2SAT 95–100
[2025-05-20 04:09] LABS: Chloride 104 mmol/L (98-107); Potassium 4.5 mmol/L (3.5-5.1); Sodium 140 mmol/L (136-145)
[2025-05-20 04:10] LABS: Anion Gap 11 (5-15); Calcium 9.2 mg/dL (8.7-10.4); Carbon Dioxide 25 mmol/L (20-31)
[2025-05-20 04:15] LABS: BUN/Creatinine Ratio 25.7 (10.0-20.0)
[2025-05-20 04:18] LABS: INR 1.01 (0.9-1.15); Partial Thromboplastin Time 25.3 SEC (24.5-34.5); Prothrombin Time 10.7 sec (9.3-11.8)
[2025-05-20 04:20] LABS: Blood Urea Nitrogen 27 mg/dL (9-23); Glucose 121 mg/dL (74-106)
[2025-05-20] MEDS: LISINOPRIL 20 MG TAB PO SCH (09:29)
--- NOTE | 2025-05-20 10:48 | DVHPN2 ---
Consult Progress Note Date Seen: May 20, 2025 Subjective Review of Systems: CVS:Normal, RESPIRATORY:Normal, NEURO:Normal Objective vital signs Vital Sign Date Time Temp Pulse Resp B/P (MAP) Pulse Ox O2 Delivery O2 Flow Rate FiO2 05/20/25 09:29 142/102 05/20/25 09:28 73 05/20/25 09:00 97.4 22 100 97.4 05/19/25 20:00 Room Air* 0 21 Total Intake and Output 05/19/25 05/19/25 05/20/25 14:59 22:59 06:59 Intake Total 50 ml 640 ml 475 ml Output Total 802 ml 850 ml Balance 50 ml -162 ml -375 ml medications Current Medications Medications Dose Ordered Sig/Simona Route Start Time Stop Time Status Last Admin Dose Admin Acetaminophen 650 mg Q6HP PRN PO 05/14/25 13:30 Ondansetron HCl 4 mg Q4HPRN PRN IV 05/14/25 14:00 Enoxaparin Sodium 80 mg Q12HR SC 05/15/25 10:00 05/18/25 20:57 80 MG Acetaminophen/ Hydrocodone Bitart 1 tab Q6HPRN PRN PO 05/14/25 16:45 Cancel Acetaminophen/ Hydrocodone Bitart 1 tab Q6HP PRN PO 05/14/25 17:15 05/20/25 09:30 1 TAB Diagnostic Test (Pha) 1 strip Q6HR 05/15/25 00:00 05/20/25 05:32 1 STRIP Insulin Human Regular Q6HR SC 05/15/25 00:00 05/19/25 11:33 6 UNITS Dextrose 50 ml UD PRN IV 05/14/25 18:30 Morphine Sulfate 1 mg Q4HPRN PRN IV 05/15/25 14:45 05/20/25 05:32 1 MG Pantoprazole Sodium 40 mg DAILY IV 05/16/25 10:00 05/20/25 09:27 40 MG Ceftriaxone Sodium 50 ml @ 100 mls/hr DAILY@09 IV 05/16/25 09:00 05/20/25 09:27 100 MLS/HR Metoprolol Tartrate 50 mg BID PO 05/19/25 22:00 05/20/25 09:28 50 MG Lisinopril 40 mg DAILY PO 05/20/25 10:00 05/20/25 09:29 40 MG Examination: LUNGS:Normal, CVS:Normal (V-paced with underlined sinus rhythm), SKIN:Abnormal (Swelling to left upper chest at pacemaker site, no active bleeding), NEURO:Normal laboratory and microbiology Laboratory Tests 05/20/25 03:17 05/19/25 05:33 Test 05/20/25 03:17 Range/Units Serum Glucose 121 H 74-106 mg/dL Problem List/Assessment/Plan Problem List/Assessment/Plan Symptomatic bradycardia s/p temporary TV pacer followed by a dual-chamber permanent pacemaker implantation (Biotronic) Paroxysmal atrial fibrillation, Stage 3a (on Xarelto/Propanolol/?metoprolol) Chronic compensated HFpEF Moderate tricuspid valve regurgitation Mqs-suobnwd-dxlkgnvfe diabetes mellitus Presence of implanted neurostimulator Chronic back pain with opioid dependence Dyslipidemia Plan/Recommendations (Dr. Mariano) Transthoracic echocardiogram reveals an EF of 75% with normal diastolic function. The patient with profound bradycardia underwent a temporary transvenous pacemaker implantation on 05/14/2025 followed by a dual-chamber permanent pacemaker implantation on 05/17/2025. Post-procedure pacemaker interrogation revealed normal functioning device. Subcutaneous Lovenox held secondary to bleeding at pacemaker site. There does not appear to be any further bleed. Pacemaker site dressing will be changed and we will re-evaluate for further bleed. court monitor reviewed with no overnight rapid ventricular rate events. Continue beta-soledad. Further orders per clinical course. Thank you for allowing us to participate in this patient's care. Please call if you have any questions or concerns. This medical document was created using an electronic medical record system with voice recognition software and computerized dictation system. Although this document has been carefully reviewed, there might still be some phonetic and typographical errors. Occasional wrong-word or ``sound-alike substitutions may have occurred due to the inherent limitations of voice recognition software. These areas are purely typographical due to imperfections of the software programs and do not reflect any compromise in the patient's medical care. Please read the chart carefully and recognize, using context, where these substitutions have occurred. Plan discussed with: Patient, Other Dietary Evaluation Review Comments: Nutrition Recommendation: 1) CCHO 75gm + cardiac diet 2) Glucerna 240ml TID 3) Monitor PO intake, lab values, weight trend, and I/O Expected Outcomes/Goals: Intake to meet >75% estimated needs FU 3-5 days Date of Service: May 20, 2025 Billing Provider: RAMANDEEP MCLEAN Cardiology Common Codes: [id number] HOSP CARE(High RAMANDEEP MCLEAN May 20, 2025 10:48
--- NOTE | 2025-05-20 13:44 | ECG ---
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
--- NOTE | 2025-05-20 19:38 | DVHPNRES ---
Progress Note Date Seen: May 20, 2025 Resident Creating Document: DEL LO RESIDENT Medical Necessity Reason Pt with a Central, PICC or Fol: Yes Subjective Review of Systems Mr. Hendrix is a 79 year old male with PMHx of prostate cancer s/p prostatectomy and radiation in 2009, CKD, Atrial Fibrillation on Xarelto, diabetes mellitus, hypertension, chronic back pain, and dyslipidemia, who presented to [facility] via EMS due to bradycardia. The patient was at a routine physical with his PCP at a local [place] [facility] when he was found to have HR in the 30s, 12-lead electrocardiogram revealing an idioventricular rhythm with an associated right bundle branch block and a heart rate in the 30s bpm., for which 911 was called and he was transferred to the emergency department. On evaluation in the ED, the patient was afebrile, HR 33 bpm, originally hypertensive then slightly hypotensive. 12 lead electrocardiogram revealing a junctional rhythm in the 30s bpm. Initial labs significant for normocytic hypochromic anemia, elevated creatinine of 1.43, and BUN of 28. PT of 12.4, INR 1.19, and UDS positive fo opiates. Initial chest xray shows patchy right basilar opacities, however this does not appear on follow up xray. On evaluation, it was found that the patient was on both metoprolol tartrate 50 mg BID and propranolol 20 mg BID. Glucagon was given and dopamine for vasopressor support and was admitted on ICU status. He was evaluated by cardiology who recommended transvenous pacemaker placement, followed by permanent pacemaker once anticoagulation washes out. He was taken to the director of cardiac cath lab and transvenous pacemaker was placed in the right femoral region with a set rate of 60 bpm. On initial evaluation in the ICU, the patient is well. States he began to have dizziness upon standing and some shortness of breath approximately six months ago, around the time he was prescribed propranolol. At this time, refers only back pain associated to chronic back problems, denies dizziness, generalized weakness, shortness of breath, palpitations, and chest pain. He states he began to feel dizziness upon standing approximately 6 months ago. He was afebrile, HR 60 (rhythm set by pacer), with MAP within normal range. CBC was stable, renal function slightly worsened from admission. Prior medical history: Prostate cancer, CKD, Atrial fibrillation, hypertension, diabetes mellitus, dyslipidemia, chronic back pain Prior surgical history: Prostatectomy, hiatal hernia repair, spinal stimulator implant placement, vasectomy, colon polypectomy Allergies: Per record, patient is allergic to metronizadole, however patient denies Social history: Refers previous tobacco, marijuana, methamphetamine, and heavy alcohol use, with cessatiton approximately 37 years ago Home medications: Aspirin, jardiance, fluticasone, metformin, Xarelto, rosuvastatin, amlodipine, spironolactone, propranolol, metoprolol 05/17/2025: The patient is seen in the ICU. Per nurse, no over night events to report. He is afebrile, heart rate continues to be 60, MAP within normal range. Labs are stable. Kidney function continues to improve. The patient went to the director of cardiac cath lab today for pacemaker placement. Patient tolerated procedure is now back 8in the CU. Refers he feels tired, denies any pain, nausea, dizziness, palpitations or weakness. 05/16/2025: The patient is seen in the ICU. Per nurse, no over night events to report. He is afebrile, heart rate continues to be 60, with MAP within normal range. Labs are stable. Kidney function has improved. Per cardiology, he will go for pacemaker placement tomorrow. 05/18/2025: The patient is seen in the ICU. Per nurse, no over night events to report. He is afebrile, heart rate continues to be 70, with MAP within normal range. Patient underwent to permanent pacemaker placement yesterday, patient is downgraded to tele. 05/19/2025: The patient is seen at bedside. Per nurse, the patient started bleeding from pacemaker insertion site overnight. He is afebrile, heart rate remains at 70 or above, MAP is within normal range. Patient currently continues to bleed from incision in left pectoral region, surgical snow has been placed. If bleeding is more controlled, possible discharge tomorrow. 05/20/2025: Patient seen at bedside. Per nurse, bleeding has improved. He is afebrile, heart rate remains above 70, MAP is within normal range. Patient has unstable gait, PT has been consulted for evaluation with social service consult for home PT. Review of Systems: Constitutional: Denies weight loss, fever and chills. HEENT: Denies changes in vision and hearing. Respiratory: Denies shortness of breath and cough Cardiovascular: Denies chest discomfort or palpitations GI: Denies abdominal distention, abdominal pain, diarrhea : Denies dysuria and urinary frequency. Musculoskeletal: Refers localized back pain Skin: Bleeding from incision in left pectoral region Neurological: denies dizziness headache vision or hearing problems Objective vital signs Vital Sign Date Time Temp Pulse Resp B/P (MAP) Pulse Ox O2 Delivery O2 Flow Rate FiO2 05/20/25 17:00 97.2 69 22 148/84 (105) 98 97.2 05/20/25 08:00 Room Air* 0 21 Total Intake and Output 05/19/25 05/19/25 05/20/25 15:00 23:00 07:00 Intake Total 50 ml 640 ml 475 ml Output Total 802 ml 850 ml Balance 50 ml -162 ml -375 ml medications Current Medications Medications Dose Ordered Sig/Simona Route Start Time Stop Time Status Last Admin Dose Admin Acetaminophen 650 mg Q6HP PRN PO 05/14/25 13:30 Ondansetron HCl 4 mg Q4HPRN PRN IV 05/14/25 14:00 Enoxaparin Sodium 80 mg Q12HR SC 05/15/25 10:00 05/18/25 20:57 80 MG Acetaminophen/ Hydrocodone Bitart 1 tab Q6HPRN PRN PO 05/14/25 16:45 Cancel Acetaminophen/ Hydrocodone Bitart 1 tab Q6HP PRN PO 05/14/25 17:15 05/20/25 17:38 1 TAB Diagnostic Test (Pha) 1 strip Q6HR 05/15/25 00:00 05/20/25 17:38 1 STRIP Insulin Human Regular Q6HR SC 05/15/25 00:00 05/19/25 11:33 6 UNITS Dextrose 50 ml UD PRN IV 05/14/25 18:30 Morphine Sulfate 1 mg Q4HPRN PRN IV 05/15/25 14:45 05/20/25 13:27 1 MG Pantoprazole Sodium 40 mg DAILY IV 05/16/25 10:00 05/20/25 09:27 40 MG Ceftriaxone Sodium 50 ml @ 100 mls/hr DAILY@09 IV 05/16/25 09:00 05/20/25 09:27 100 MLS/HR Metoprolol Tartrate 50 mg BID PO 05/19/25 22:00 05/20/25 09:28 50 MG Lisinopril 40 mg DAILY PO 05/20/25 10:00 05/20/25 09:29 40 MG Examination General: Alert, AOx4, follows commands HEENT: Normocephalic, atraumatic, pupils are reactive, pale conjunctive, moist mucous membranes Respiratory/pulmonary: Bilateral chest expansion, no pain on palpation of chest wall, clear lungs bilaterally, vesicular murmur without crackles or wheezing, linear incision observed over left pectoral region clean without blood Cardiovascular: Paced rhythm Abdomen: Abdomen nondistended, non-distended, normal bowel sounds, soft, no pain on palpation to any abdominal quadrants Extremities: No deformities, no peripheral edema, pulses are palpable Peripheral pulses: 2+ radial (R), 2+ radial (L), 2+ Dorsalis pedis (R), 2 + Dorsalis pedis (L) Skin: No rashes or pruritus Neurological: Alert, AOx4, no focal deficits noted laboratory and microbiology Laboratory Tests 05/20/25 03:17 05/19/25 05:33 Test 05/20/25 03:17 Range/Units Serum Glucose 121 H 74-106 mg/dL Microbiology Date/Time Source Procedure Growth Status 05/15/25 13:52 Urine - [place] Urine Culture - Final Complete 05/14/25 19:05 Nose MRSA Screen - Final Complete Problem List/Assessment/Plan Problem List/Assessment/Plan Assessment and Plan: Neurology # Alert Cardiovascular # Possible Sick Sinus Syndrome with bradycardia - Dopamine infusion discontinued - Cardiology is on board, patient is candidate for permanent pacemaker - S/p Temporary transvenous pacemaker implantation 05/14/2025 - Avoid AV oscar blocking agents - Metoprolol and propranolol discontinued at this time - Glucagon 5 mg given once for beta soledad reversal - S/p pacemaker placement 05/17/2025 # Paroxysmal Atrial fibrillation - [id number]: 4 - Xarelto held before pacemaker placement - Lovenox therapeutic dose # Chronic Systolic and Diastolic Heart Failure, not exacerbated (per records) - Echocardiogram 05/15/2025: Left ventricle: The cavity size is normal. Wall thickness is the upper limits of normal. Calculated ejection fraction 75%. Normal diastolic function. Right ventricle : Systolic function is normal. Estimated RVSP 57 mm Hg. There is left atrial enlargement. There is right atrial enlargement. Aortic valve: Trileaflet aortic valve. No aortic stenosis or aortic regurgitation Mitral valve: There is no mitral stenosis. There is trace mitral regurgitation. Tricuspid valve: There is moderate tricuspid regurgitation. Pulmonary valve: There is mild pulmonic regurgitation. Pericardium: There is no pericardial effusion. Inferior vena cava: The vessel is normal in size. There is normal respiratory phasic variation. - Hold Spironolactone until blood pressure is more controlled # Hypertension - Monitor - Lisinopril 40 mg PO daily - Amlodipine held # Dyslipidemia Respiratory # Pneumonia, ruled out GI # Peptic ulcer prophylaxis -Pantoprazole 40 mg IV daily # History of hiatal hernia # [place] catheter draining brown urine #History of Prostate cancer in 2009 - S/p Prostatectomy - S/p Prostate radiation Possible Complicated UTI - Ceftriaxone 1 mg IV daily - Urine culture ordered Nephrology #ALMA on CKD stage 3a likely due to VMN, PoA, resolved - Avoid nephrotoxic drugs - Monitor BMP - Urine protein/ creatinine ordered - Urine sodium # Rhabdomyolisis ruled out - CK: 27 Hem/onc #Normocytic hypochromic anemia - Monitor H and H Endocrine #Type 2 Diabetes Mellitus - Hold Jardiance and Metformin - SSI - Accu-cheks MSK # Chronic back pain - [place] 7.5 mg/ 325 mg PO q 6 hours - Morphine 1 mg IV q 6 hrs PRN - Lidocaine patch DVT prophylaxis - Lovenox therapeutic dose due to AFib PUD prophylaxis: - Protonix 40 mg IV daily Lines - [place] catheter : 05/14/2025, discontinued - R peripheral line: 05/14/20[facility] - Dopamine discontinued Nutrition: - Cardiac diet Patient will be evaluated by PT for possible home PT. clinical services manager consult has been placed. Plan of care discussed with the patient and his , Susan, for over 22 minutes. All questions were answered and concerns addressed. Code status discussed greater than 20 minutes: Full CODE STATUS. His , Susan, was contacted via telephone for updates Plan discussed with Dr. Thao Plan discussed with: Patient, Other (Nurse ) Dietary Evaluation Review Comments: Nutrition Recommendation: 1) CCHO 75gm + cardiac diet 2) Glucerna 240ml TID 3) Monitor PO intake, lab values, weight trend, and I/O Expected Outcomes/Goals: Intake to meet >75% estimated needs FU 3-5 days Visit Coding STANDARD RES Billing Provider: BILL THAO MD Date of Service if different f: May 20, 2025 Date of Service: May 20, 2025 Billing Provider: BILL THAO MD Common Visit Codes: 33944-[id number] INP/OBS CARE(HIGH) Secondary Visit Codes: 35229-[id number] CARE PLAN 30 MINUTES LO,DEL RESIDENT May 20, 2025 19:38 BILL THAO MD May 21, 2025 14:41
[2025-05-20] MEDS ORDERED: CEFU500T43 PO (19:39)
[2025-05-21 01:00] VITALS: BP 138/87; PULSE 70; RESP 17; TEMP 98.8; O2SAT 97
[2025-05-21 05:00] VITALS: BP 131/70; PULSE 70; RESP 18; TEMP 97.5; O2SAT 99
[2025-05-21 08:00] VITALS: PULSE 70; RESP 17; O2SAT 98
[2025-05-21 09:00] VITALS: BP 144/86; PULSE 70; RESP 17; TEMP 97.3; O2SAT 98
[2025-05-21] MEDS ORDERED: CEFU500T43 PO (09:21)
--- NOTE | 2025-05-21 10:36 | DVHPN2 ---
Consult Progress Note Date Seen: May 21, 2025 Subjective Review of Systems: CVS:Normal, RESPIRATORY:Normal, NEURO:Normal Objective vital signs Vital Sign Date Time Temp Pulse Resp B/P (MAP) Pulse Ox O2 Delivery O2 Flow Rate FiO2 05/21/25 06:24 71 16 134/81 05/21/25 05:00 97.5 99 97.5 05/20/25 20:00 Room Air* 0 21 Total Intake and Output 05/20/25 05/20/25 05/21/25 15:00 23:00 07:00 Intake Total 267 ml 367 ml 700 ml Output Total 903 ml 950 ml Balance 267 ml -536 ml -250 ml medications Current Medications Medications Dose Ordered Sig/Simona Route Start Time Stop Time Status Last Admin Dose Admin Acetaminophen 650 mg Q6HP PRN PO 05/14/25 13:30 Ondansetron HCl 4 mg Q4HPRN PRN IV 05/14/25 14:00 Enoxaparin Sodium 80 mg Q12HR SC 05/15/25 10:00 05/18/25 20:57 80 MG Acetaminophen/ Hydrocodone Bitart 1 tab Q6HPRN PRN PO 05/14/25 16:45 Cancel Acetaminophen/ Hydrocodone Bitart 1 tab Q6HP PRN PO 05/14/25 17:15 05/20/25 17:38 1 TAB Diagnostic Test (Pha) 1 strip Q6HR 05/15/25 00:00 05/21/25 05:54 1 STRIP Insulin Human Regular Q6HR SC 05/15/25 00:00 05/21/25 06:02 2 UNITS Dextrose 50 ml UD PRN IV 05/14/25 18:30 Morphine Sulfate 1 mg Q4HPRN PRN IV 05/15/25 14:45 05/21/25 05:54 1 MG Pantoprazole Sodium 40 mg DAILY IV 05/16/25 10:00 05/20/25 09:27 40 MG Ceftriaxone Sodium 50 ml @ 100 mls/hr DAILY@09 IV 05/16/25 09:00 05/20/25 09:27 100 MLS/HR Metoprolol Tartrate 50 mg BID PO 05/19/25 22:00 05/20/25 21:20 50 MG Lisinopril 40 mg DAILY PO 05/20/25 10:00 05/20/25 09:29 40 MG Examination: LUNGS:Normal, CVS:Normal, NEURO:Normal laboratory and microbiology Laboratory Tests 05/20/25 03:17 05/19/25 05:33 Test 05/20/25 03:17 Range/Units Serum Glucose 121 H 74-106 mg/dL Problem List/Assessment/Plan Problem List/Assessment/Plan Symptomatic bradycardia s/p temporary TV pacer followed by a dual-chamber permanent pacemaker implantation ([place]) Paroxysmal atrial fibrillation, Stage 3a (on Xarelto/Propanolol/?metoprolol) Chronic compensated HFpEF Moderate tricuspid valve regurgitation Ven-dcngspo-djfhhkbaw diabetes mellitus Presence of implanted neurostimulator Chronic back pain with opioid dependence Dyslipidemia Plan/Recommendations (Dr. Mariano) Transthoracic echocardiogram reveals an EF of 75% with normal diastolic function. The patient with profound bradycardia underwent a temporary transvenous pacemaker implantation on 05/14/2025 followed by a dual-chamber permanent pacemaker implantation on 05/17/2025. Post-procedure pacemaker interrogation revealed normal functioning device. Subcutaneous Lovenox held secondary to bleeding at pacemaker site which has resolved. satellite project site monitor reviewed with no overnight rapid ventricular rate events. Continue beta- soledad. Follow-up within our clinic for wound check on 05/24/2025 at 1045, pacemaker interrogation on 05/28/2025 at 1500, and follow-up with Dr. Mariano on 05/30/2025 at 1400. There is no further cardiac work-up indicated at this time. Kindly call with any questions or concerns. Thank you for allowing us to participate in this patient's care. This medical document was created using an electronic medical record system with voice recognition software and computerized dictation system. Although this document has been carefully reviewed, there might still be some phonetic and typographical errors. Occasional wrong-word or ``sound-alike substitutions may have occurred due to the inherent limitations of voice recognition software. These areas are purely typographical due to imperfections of the software programs and do not reflect any compromise in the patient's medical care. Please read the chart carefully and recognize, using context, where these substitutions have occurred. Plan discussed with: Patient, Other Dietary Evaluation Review Comments: Nutrition Recommendation: 1) CCHO 75gm + cardiac diet 2) Glucerna 240ml TID 3) Monitor PO intake, lab values, weight trend, and I/O Expected Outcomes/Goals: Intake to meet >75% estimated needs FU 3-5 days Date of Service: May 21, 2025 Billing Provider: RAMANDEEP MCLEAN Cardiology Common Codes: [id number] HOSP CARE(High RAMANDEEP MCLEAN May 21, 2025 10:36
--- NOTE | 2025-05-21 14:26 | DVHDSRES ---
Discharge Summary Date of Admission Resident Creating Document: DEL LO RESIDENT May 14, 2025 at 13:21 Date of Discharge: May 21, 2025 Admitting Diagnosis Bradycardia Wounds: No wounds Labs/Diagnostic Data: Laboratory Results Test 05/21/25 11:37 05/20/25 03:17 05/19/25 05:33 05/18/25 02:55 POC Glucose 142 mg/dl (70-106) Prothrombin Time 10.7 sec (9.3-11.8) Prothrombin Time INR 1.01 (0.9-1.15) Activated Partial Thromboplast Time 25.3 SEC (24.5-34.5) Sodium Level 140 mmol/L (136-145) Potassium Level 4.5 mmol/L (3.5-5.1) Chloride Level 104 mmol/L (98-107) Carbon Dioxide Level 25 mmol/L (20-31) Anion Gap 11 (5-15) Blood Urea Nitrogen 27 mg/dL (9-23) Creatinine 1.05 mg/dL (0.700-1.30) Glomerular Filtration Rate Calc 73 mL/min (>90) BUN/Creatinine Ratio 25.7 (10.0-20.0) Serum Glucose 121 mg/dL (74-106) Calcium Level 9.2 mg/dL (8.7-10.4) White Blood Count 6.7 10^3/uL (4.4-10.8) Red Blood Count 4.22 10^6/uL (4.5-5.90) Hemoglobin 11.2 g/dL (13.5-17.5) Hematocrit 34.8 % (41.0-53.0) Mean Corpuscular Volume 82.3 fL (80.0-100.0) Mean Corpuscular Hemoglobin 26.5 pg (28.0-32.0) Mean Corpuscular Hemoglobin Concent 32.2 g/dL (32.0-36.0) Red Cell Distribution Width 17.2 % (11.8-14.3) Platelet Count 216 10^3/uL (140-450) Mean Platelet Volume 9.3 fL (6.9-10.8) Neutrophils (%) (Auto) 66.9 % (37.0-80.0) Lymphocytes (%) (Auto) 17.0 % (10.0-50.0) Monocytes (%) (Auto) 11.0 % (0.0-12.0) Eosinophils (%) (Auto) 4.4 % (0.0-7.0) Basophils (%) (Auto) 0.7 % (0.0-2.0) Neutrophils # (Auto) 4.5 10 ^3/uL (1.6-8.6) Lymphocytes # (Auto) 1.1 10 ^3/uL (0.4-5.4) Monocytes # (Auto) 0.7 10 ^3/uL (0-1.3) Eosinophils # (Auto) 0.3 10 ^3/uL (0-0.8) Basophils # (Auto) 0 10 ^3/uL (0-0.2) Nucleated Red Blood Cells 0.1 % Total Bilirubin 0.4 mg/dL (0.2-1.0) Aspartate Amino Transferase (AST) 17 U/L (13-40) Alanine Aminotransferase (ALT) 10 U/L (7-40) Alkaline Phosphatase 96 U/L (46-116) Total Protein 6.0 g/dL (5.7-8.2) Albumin 3.7 g/dL (3.2-4.8) Phosphorus Level 2.7 mg/dL (2.4-5.1) Magnesium Level 1.9 mg/dL (1.6-2.6) Test 05/15/25 13:52 05/15/25 02:56 05/14/25 16:48 05/14/25 11:40 Urine Color Dark-brown (Yellow) Urine Clarity Ex.turbid (Clear) Urine pH 5.0 (5.0-9.0) Urine Specific [place] 1.020 (1.001-1.035) Urine Protein 1+ (Negative) Urine Ketones Negative (Negative) Urine Blood 3+ /uL (Negative) Urine Nitrite Negative (Negative) Urine Bilirubin Negative (Negative) Urine Urobilinogen Normal mg/dL (Negative) Urine Leukocyte Esterase 1+ /uL (Negative) Urine RBC 1487 /hpf (0 - 3) Urine WBC Clumps Present /hpf (None Seen) Urine Microscopic WBC 204 /HPF (0-3) Urine Squamous Epithelial Cells None seen /hpf (<5) Urine Bacteria None seen /hpf (None Seen) Urine Mucus Few (None Seen) Urine Creatinine 108.43 mg/dL (30.0-125.0) Urine Protein/Creatinine Ratio 1.57 Urine Sodium 42 mmol/L (40-220) Urine Glucose Normal mg/dL (Normal) Urine Total Protein 170.1 mg/dL (1-14) Creatine Kinase 23 U/L (46-171) Urine Opiates Screen Pos (NEGATIVE) Urine Fentanyl Screen Neg (NEGATIVE) Urine Barbiturates Screen Neg (NEGATIVE) Urine Phencyclidine Screen Neg (NEGATIVE) Urine Amphetamines Screen Neg (NEGATIVE) Urine Benzodiazepines Screen Neg (NEGATIVE) Urine Cocaine Screen Neg (NEGATIVE) Urine Cannabinoids Screen Neg (NEGATIVE) Hemoglobin A1c 6.0 % A1C (<5.7) Troponin I High Sensitivity 12 ng/L (</=54) Triglycerides Level 125 mg/dL (< 150) Cholesterol Level 95 mg/dL (< 200) LDL Cholesterol 45 mg/dL (< 100) HDL Cholesterol 35 mg/dL (40-59) Thyroid Stimulating Hormone (TSH) 1.66 uIU/mL (0.55-4.78) Other Laboratory Tests 05/20/25 03:17 05/19/25 05:33 Brief Hx & Hospital Course: Mr. Hendrix is a 79 year old male with PMHx of prostate cancer s/p prostatectomy and radiation in 2009, CKD, Atrial Fibrillation on Xarelto, diabetes mellitus, hypertension, chronic back pain, and dyslipidemia, who presented to [facility] via EMS due to bradycardia. The patient was at a routine physical with his PCP at a local [facility] when he was found to have HR in the 30s, 12-lead electrocardiogram revealing an idioventricular rhythm with an associated right bundle branch block and a heart rate in the 30s bpm., for which 911 was called and he was transferred to the emergency department. On evaluation in the ED, the patient was afebrile, HR 33 bpm, originally hypertensive then slightly hypotensive. 12 lead electrocardiogram revealing a junctional rhythm in the 30s bpm. Initial labs significant for normocytic hypochromic anemia, elevated creatinine of 1.43, and BUN of 28. PT of 12.4, INR 1.19, and UDS positive fo opiates. Initial chest xray shows patchy right basilar opacities, however this does not appear on follow up xray. On evaluation, it was found that the patient was on both metoprolol tartrate 50 mg BID and propranolol 20 mg BID. Glucagon was given and dopamine for vasopressor support and was admitted on ICU status. He was evaluated by cardiology who recommended transvenous pacemaker placement, followed by permanent pacemaker once anticoagulation washes out. He was taken to the cytogenetics laboratory manager and transvenous pacemaker was placed in the right femoral region with a set rate of 60 bpm. On initial evaluation in the ICU, the patient is well. States he began to have dizziness upon standing and some shortness of breath approximately six months ago, around the time he was prescribed propranolol. At this time, refers only back pain associated to chronic back problems, denies dizziness, generalized weakness, shortness of breath, palpitations, and chest pain. He states he began to feel dizziness upon standing approximately 6 months ago. He was afebrile, HR 60 (rhythm set by pacer), with MAP within normal range. CBC was stable, renal function slightly worsened from admission. UA showed signs of a UTI[place] [address] CFU/mL of mixed gram positive latasha, patient was started on ceftriaxone for this with improvements in renal function after the fact. It was determined by cardiology that insertion of a permanent pacemaker was indicated. He was taken to the cytogenetics laboratory manager on 05/18/2025 for permanent pacemaker placement, which he tolerated appropriately. He was downgraded to telemetry for furhter monitoring, patient was found to have bleeding from his incision site secondary to his scratching the region in his sleep, surgical snow to control bleeding. Due to unsteady gait, patient has been evaluated by PT for home PT. On evaluation today, he states he feels well, denies any shortness of breath, weakness, palpitations, chest pain, syncope, fever, nausea, and vomiting. Vitals are stable. He is considered stable for discharge home with prescription for antibiotics for 7 days. His has been contacted and instruced to schedule an appointment with his [facility] PCP within the next week for follow up and referral to a offset assistant press operator. All was explained to the patient and his , Susan, who state they understand and agree. Physical Exam General: Alert, AOx4, follows commands HEENT: Normocephalic, atraumatic, pupils are reactive, pale conjunctive, moist mucous membranes Respiratory/pulmonary: Bilateral chest expansion, no pain on palpation of chest wall, clear lungs bilaterally, vesicular murmur without crackles or wheezing, linear incision observed over left pectoral region clean without blood Cardiovascular: Paced rhythm Abdomen: Abdomen nondistended, non-distended, normal bowel sounds, soft, no pain on palpation to any abdominal quadrants Extremities: No deformities, no peripheral edema, pulses are palpable Peripheral pulses: 2+ radial (R), 2+ radial (L), 2+ Dorsalis pedis (R), 2 + Dorsalis pedis (L) Skin: No rashes or pruritus Neurological: Alert, AOx4, no focal deficits noted Goals of care discussed with the patient and his for over 25 minutes. Case discussed with Dr. Thao time spent in discharge planning was 41 mins Consults/Reason for consult Cardiology was consulted due to severe bradycardia and for pacemaker placement Operations or Procedures APPROVED REPORT EXAM: Two-dimensional and M-mode echocardiogram with Doppler and color Doppler. Blood Pressure: 96/29 mmHg INDICATION Bradycardia RISK FACTORS Height: 5'8", Weight: 167 DIMENSIONS LVDd 5.0 (3.8-5.7cm) LA (2D) 4.3 (1.9-4.0cm) Aortic Root 3.9 (2.0- 3.7cm) LVDs 2.8 (2.5-4.0cm) LA (MM) (1.9-4.0cm) Aortic Cusp Exc 1.9 (1.5- 2.0cm) EF (%) 75.0 (55-70%) Rt. Atrium 4.6 (1.9-4.0cm) Asc. Aorta cm IVSd 1.2 (0.7-1.1cm) RV (D) (1.8-2.4cm) PWd 1.4 (0.7-1.1cm) Mitral Valve Mitral Mitral Stenosis E/A ratio 0.0 2D MVA cm2 Aortic Valve Aortic Valve Aortic Stenosis V1 2.00m/s AO Mean GR. 8mmHg V2 2.16m/s AO Peak GR. 19mmHg LVOT Diameter 2.2 (1.8-2.4cm) Doppler NICHOLAS 3.52cm2 Pulmonic Valve V2 1.38m/s Tricuspid Valve TR Velocity 3.50m/s RVSP 57mmHg Other Information Quality : Rhythm : Bradycardia Conclusion Left ventricle: The cavity size is normal. Wall thickness is the upper limits of normal. Calculated ejection fraction 75%. Normal diastolic function. Right ventricle : Systolic function is normal. Estimated RVSP 57 mm Hg. There is left atrial enlargement. There is right atrial enlargement. Aortic valve: Trileaflet aortic valve. No aortic stenosis or aortic regurgitation Mitral valve: There is no mitral stenosis. There is trace mitral regurgitation. Tricuspid valve: There is moderate tricuspid regurgitation. Pulmonary valve: There is mild pulmonic regurgitation. Pericardium: There is no pericardial effusion. Inferior vena cava: The vessel is normal in size. There is normal respiratory phasic variation. Report Details Date: 05/14/25 Preop Diagnosis: Sinus bradycardia with junctional rhythm Postop Diagnosis: Same Surgeon: Derek Huffman MD Anesthesiologist: Local anesthetics Anesthesia: Local Consent: The patient was informed of the risks and benefits of the procedure. These include but are not limited to complications of anesthesia, postoperative infection, incomplete relief of symptoms, recurrence of symptoms, damage to blood vessels, nerves and tendons, deep venous thrombosis, pulmonary embolism and possible need for repeat surgery in the future. Complications: Non apparent Estimated Blood Loss: 2 mL Findings: s/p temporary venous pacer insertion Indications for Surgery: Significant bradycardia lead junctional rhythm and subsequent hypotension requiring pressors in the setting of beta-soledad use (patient reports he has been taking metoprolol and propranolol both) Name of Procedure Performed Temporary transvenous pacer insertion wire right femoral vein Procedure Details Procedure Details: Informed consent was obtained. Patient was brought to cardiac catheterization lab. He was prepped and draped in a sterile fashion. Under ultrasound guidance 1% lidocaine was injected over the area of right femoral vein. Next under ultrasound guidance right femoral vein was accessed using a cook needle and 035 wire was advanced into the right femoral vein under fluoroscopic guidance. Next a six Grenadian femoral catheter was placed in the right femoral vein. Next five Grenadian temporary venous pacer was inserted into the RFV and under fluoroscopic guidance advanced into RV. Pacer was tested a different occurrence. It was said at pacing rate of 60 beats per minute and five milliampere. Summary: - Successful insertion of five Grenadian EDP wire right femoral vein with pacing rate at 60 beats per minute at five milliamps appears - Femoral sheath was secured in place wire sutures Recommendations: - Patient takes anticoagulation (rivaroxaban) last dose the night before admission for atrial fibrillation - Hold Xarelto mildly inpatient in case patient would require permanent pacemaker placement - Start either heparin drip or Lovenox therapeutic level for nonvalvular atrial fibrillation CLINICAL HISTORY: sob TECHNIQUE: Single view of the chest was obtained. COMPARISON: XY CHEST PORTABLE on DOS: 04/21/24, XY CHEST TWO VIEWS ROUTINE on DOS: 11/09/23, XY CHEST PORTABLE on DOS: 10/17/23, XY CHEST TWO VIEWS ROUTINE on DOS: 05/25/23 FINDINGS: The heart size is mildly enlarged and pulmonary vasculature appears normal. There are patchy right basilar opacities. IMPRESSION: Patchy right basilar opacities, likely atelectasis and/or infection. INDICATION: s/p pacemaker TECHNIQUE: Frontal view of the chest. COMPARISON: XY CHEST PORTABLE on DOS: 05/14/25, XY CHEST PORTABLE on DOS: 04/21/24, XY CHEST PORTABLE on DOS: 10/17/23 FINDINGS/IMPRESSION: Interval placement of pacemaker with lead extending from below the diaphragm and projecting over the left ventricle. Spinal stimulator leads are noted. There is lucency within the left lower thorax, which likely reflects a skin fold, though a repeat examination may be obtained with improved positioning to exclude pneumothorax. Unchanged cardiomediastinal silhouette. No pleural effusion. Unchanged osseous structures. CHEST RADIOGRAPH Indication: TRANSVENOUS PACEMAKER POSITIONING Technique: Single frontal view of the chest was obtained COMPARISON: XY CHEST PORTABLE on DOS: 05/15/25, XY CHEST PORTABLE on DOS: 05/14/25, XY CHEST PORTABLE on DOS: 05/14/25, XY CHEST PORTABLE on DOS: 04/21/24, XY CHEST TWO VIEWS ROUTINE on DOS: 11/09/23 FINDINGS: Lines and Tubes: None Lungs: Clear Pleura: No effusion. No pneumothorax. Cardiomediastinal contours: Unremarkable Bones: Unremarkable IMPRESSION: 1. No acute disease. CHEST RADIOGRAPH Indication: post pacemaker Technique: Single frontal view of the chest was obtained Comparison: XY CHEST XRAY 1 VIEW on DOS: 05/17/25, XY CHEST PORTABLE on DOS: 05/16/25, XY CHEST PORTABLE on DOS: 05/15/25 FINDINGS: Lines and Tubes: Interval placement of a bipolar pacemaker in the heart with the pulse generator over the left chest. No pneumothorax on the left. Lungs: No focal consolidation. Pleura: No effusion. No pneumothorax. Cardiomediastinal contours: Unremarkable Bones: No acute osseous abnormality. IMPRESSION: 1. No acute cardiopulmonary disease. 2. Newly placed Dual-chamber pacemaker in place with pulse generator over the left chest. Condition at Discharge: Good Final Diagnosis/Problems List Successful placement of permanent dual-chamber pacemaker # Possible Sick Sinus Syndrome with bradycardia # Paroxysmal Atrial fibrillation # Chronic Systolic and Diastolic Heart Failure, not exacerbated (per records) # Hypertension # Dyslipidemia # Pneumonia, ruled out # History of hiatal hernia #History of Prostate cancer in 2010 # Possible Complicated UTI #ALMA on CKD stage 3a likely due to VMN, PoA, resolved # Rhabdomyolisis ruled out #Normocytic hypochromic anemia #Type 2 Diabetes Mellitus # Chronic back pain Discharge Disposition: Home Discharge Instruct/Medications Diet: Cardiac 2g Na,low cholest Activity: No Restrictions, As Tolerated Follow Up/Referral: Follow up with [facility] to set up care with offset assistant press operator Medications: Per EMR Scheduled Aspirin (Aspir-Low), 81 MG PO DAILY, (Reported) Cefuroxime Axetil (Cefuroxime Axetil), 500 MG PO BID Cholecalciferol (Vitamin D-3), 5,000 UNIT PO DAILY, (Reported) Empagliflozin (Jardiance), 10 MG PO DAILY Fluticasone Propionate (Fluticasone Propionate), 50 MCG COLEMAN BID, (Reported) Gabapentin (Gabapentin), 1 TAB PO TID, (Reported) Hydrochlorothiazide (Hydrochlorothiazide), 1 TAB PO DAILY, (Reported) Lisinopril (Lisinopril), 1 TAB PO DAILY, (Reported) Megestrol Acetate (Megace), 1 TAB PO BID, (Reported) Metformin Hydrochloride (Metformin Hcl), 1 TAB PO BID, (Reported) Metoprolol Tartrate (Lopressor Tablet), 1 TAB PO BID, (Reported) Pantoprazole Sodium Sesquihydr (Pantoprazole Sodium), 1 TAB PO BID, (Reported) Pantoprazole Sodium Sesquihydr (Protonix), 40 MG PO DAILY Potassium Chloride (Potassium Chloride Cr), 10 MEQ PO TID, (Reported) Rosuvastatin Calcium (Rosuvastatin Calcium), 1 TAB PO DAILY, (Reported) Spironolactone (Aldactone), 25 MG PO DAILY Scheduled PRN Hydrocodone-Acetaminophen (Hydrocodone/Acetaminophen 10-325 mg), 1 TAB PO QID PRN, (Reported) Discharge Statement: "Patient was advised to return to the ER or call 911 if any headaches, dizziness, shortness of breath, chest pain, abdominal pain, bleeding, fevers, or worsening of medical condition. Patient was counseled about treatment plan, medications, possible side effects, patientverbalized understanding. All questions were answered to the best of my ability. This discharge took greater then 30 minutes in planning, reviewing documentation, counseling the patient, and discussing with other team members." ASSESSMENT ASSESSMENT Assessment Successful placement of permanent dual-chamber pacemaker Visit Coding STANDARD RES Billing Provider: BILL THAO MD Date of Service if different f: May 21, 2025 Common Visit Codes: 53636-SZH/OBS DISCH DAY >30min DEL LO RESIDENT May 21, 2025 14:26 BILL THAO MD May 25, 2025 11:37
== END 2025-05-21 14:27 | disposition home health service (06) | DRG 242 ==
LOC: EDBD 10:33 → ER 10:33 → OVERFLOW 13:21 → ICU WEST 17:20 → TELE-WESTW 05-18 17:07
PROVIDERS: ADMIT Internal Medicine; ATTEND Internal Medicine
PROC: 5A1223Z Performance of Cardiac Pacing, Continuous (ICD-10-PCS; 2025-05-14)
PROC: 0JH606Z Insertion of Pacemaker, Dual Chamber into Chest Subcutaneous Tissue and Fascia, Open Approach (ICD-10-PCS; principal; 2025-05-17)
PROC: 02H63JZ Insertion of Pacemaker Lead into Right Atrium, Percutaneous Approach (ICD-10-PCS; 2025-05-17)
PROC: 02HK3JZ Insertion of Pacemaker Lead into Right Ventricle, Percutaneous Approach (ICD-10-PCS; 2025-05-17)
PROC: B51VYZZ Fluoroscopy of Other Veins using Other Contrast (ICD-10-PCS; 2025-05-17)
DX: I44.2 Atrioventricular block, complete (principal); N17.0 Acute kidney failure with tubular necrosis; I50.42 Chronic combined systolic (congestive) and diastolic (congestive) heart failure; E11.22 Type 2 diabetes mellitus with diabetic chronic kidney disease; D64.9 Anemia, unspecified; E78.5 Hyperlipidemia, unspecified; D50.9 Iron deficiency anemia, unspecified; N39.0 Urinary tract infection, site not specified; F11.20 Opioid dependence, uncomplicated; I13.0 Hypertensive heart and chronic kidney disease with heart failure and stage 1 through stage 4 chronic kidney disease, or unspecified chronic kidney disease; N18.31 Chronic kidney disease, stage 3a; I07.1 Rheumatic tricuspid insufficiency; I49.5 Sick sinus syndrome; G89.29 Other chronic pain; I48.0 Paroxysmal atrial fibrillation; F43.10 Post-traumatic stress disorder, unspecified; I49.3 Ventricular premature depolarization; K21.9 Gastro-esophageal reflux disease without esophagitis; Z79.82 Long term (current) use of aspirin; Z79.84 Long term (current) use of oral hypoglycemic drugs; Z85.46 Personal history of malignant neoplasm of prostate; Z88.3 Allergy status to other anti-infective agents; Z87.442 Personal history of urinary calculi; Z90.79 Acquired absence of other genital organ(s)
CPT/HCPCS: 33208; 33210; 36012; 36415; 71045; 80048; 80053; 80061; 80307; 81001; 82550; 82570; 82962; 83036; 83735; 84100; 84156; 84300; 84443; 84484; 85025; 85610; 85730; 87081; 87086; 93005; 93306; 96365; 96375; 97163; 99152; 99291; 99292; C1751; G0378; J1815; J2250; J2405; J2470; Q9967